=== PATIENT | male | born 1945 | race Caucasian/White ===

== ENCOUNTER → 2016-04-19 | Outpatient (REF) | payer MEDICARE, MEDICAID ==
[~2016-04-19] MED LIST: /MOM400 PO; ACET-654 PO; ACET500C PO; ACET65TA; AMOXIL PO; BISA10SU2 PR; CALCCHW12; CALCCHW12 PO; CALCIUM CARBONATE; CHOLECALCIFEROL; COLA100C PO; COLA100C2 PO; DILA100C; DILA100C PO; DULC10SU2 PR; DULC5TAB PO; FISH1000 PO; FISH100049 PO; FLEEENE4 PR; FLEX5TAB3 PO; FLON0.054; LASI40TA PO; LIPI10TA; LOVE1INJ SC; MAGO400T PO; METAMUCIL PO; METAPKT PO; MILKSUS PO; MIRA3350 PO; MULTIVIT PO; NYST100024 TOP; NYSTPOW TOP; ONDA4INJ4 IV; ONE50TAB4 PO; OXYC2.5T PO; PANT40TA2 PO; PRIM250T3 PO; PRIM250T5 PO; PRIMI25TA; PRIMI25TA PO; PROT20TA11; PROTPAK PO; SIMV20TA2 PO; THERGRAN; TYLE500T53 PO; VITA50003 PO; VITA500047 PO; VITAMIN D50000 UNT PO; ZOCOR PO
[2016-04-19 10:09] LABS: MEAN CORPUSCULAR HEMOGLOBIN 32.7 pg (27.0-33.0); MEAN CORPUSCULAR HGB CONC 33.8 g/dl (32.0-36.5); MEAN CORPUSCULAR VOLUME 96.9 fl (80.0-96.0); RED CELL DISTRIBUTION WIDTH 12.7 % (11.5-14.5)
[2016-04-19 10:38] LABS: ALBUMIN 2.9 GM/DL (3.2-5.2); ALBUMIN/GLOBULIN RATIO 0.71 (1.00-1.93); ALKALINE PHOSPHATASE 204 U/L (45-117); ALT/SGPT 21 U/L (12-78); ANION GAP 9 MEQ/L (8-16); AST/SGOT 18 U/L (15-37); BILIRUBIN,TOTAL 0.3 MG/DL (0.2-1.0); BLOOD UREA NITROGEN 15 MG/DL (7-18); CALCIUM LEVEL 8.3 MG/DL (8.8-10.2); CARBON DIOXIDE LEVEL 28 MEQ/L (21-32); CHLORIDE LEVEL 102 MEQ/L (98-107); CREATININE FOR GFR 0.71 MG/DL (0.70-1.30); GLOMERULAR FILTRATION RATE > 60.0 (>42); GLUCOSE, FASTING 115 MG/DL (83-110); POTASSIUM SERUM 4.1 MEQ/L (3.5-5.1); SODIUM LEVEL 139 MEQ/L (136-145)
== END ==
PROVIDERS: ATTEND Internal Medicine
DX: E53.8 Deficiency of other specified B group vitamins (principal); Z79.899 Other long term (current) drug therapy

== ENCOUNTER → 2016-05-24 | Outpatient (REF) | payer MEDICARE, MEDICAID ==
[2016-05-26 00:07] LABS: PHENOBARBITAL (PRIMIDONE) 22 ug/mL (15-40)
== END ==
PROVIDERS: ATTEND Internal Medicine
DX: R56.9 Unspecified convulsions (principal)

== ENCOUNTER 2016-06-11 20:59 | Inpatient (IN) | payer MEDICARE, MEDICAID ==
[~2016-06-11] VITALS: Ht 188 cm; Wt 105.7 kg
[~2016-06-11 20:59] MED LIST changes: -COLA100C PO; +COLA100C3 PO
[2016-06-11] MEDS: SIMVASTATIN 20 MG TAB PO SCH (21:00)
[2016-06-11] MEDS: LATANOPROST 0.005% OPHTH SOLN 2.5 ML OU SCH (21:00)
[2016-06-11] MEDS ORDERED: SENO8.6T2 PO (21:15)
[2016-06-11] MEDS ORDERED: LATA5OPD OU (21:15)
[2016-06-11] MEDS ORDERED: ALBU83IN INH (21:15)
[2016-06-11] MEDS ORDERED: PROA1AER INH (21:15)
[2016-06-11] MEDS ORDERED: DILA100C PO ×2 (21:15)
[2016-06-11] MEDS ORDERED: COLA100C3 PO (21:15)
[2016-06-11] MEDS ORDERED: MULTLIQ PO (21:27)
[2016-06-11] MEDS ORDERED: PAZE1DRO OU (21:27)
[2016-06-11] MEDS ORDERED: VOLT1GEL24 TD (21:27)
[2016-06-11] MEDS ORDERED: DRIS50002 PO (21:27)
[2016-06-11] MEDS ORDERED: PRIM250T5 PO (21:27)
[2016-06-11] MEDS ORDERED: CYAN1000VL PO (21:27)
[2016-06-11] MEDS ORDERED: ACET160L7 PO (21:27)
[2016-06-11] MEDS ORDERED: MORPHINE 4 MG/ML 1ML SYRINGE IV PRN (21:45)
[2016-06-11] MEDS ORDERED: ONDANSETRON 4MG/2ML VIAL (J2405) IV ONE (21:45)
[2016-06-11 21:50] LABS: MEAN CORPUSCULAR HGB CONC 34.3 g/dl (32.0-36.5); MEAN CORPUSCULAR VOLUME 99.2 fl (80.0-96.0); PLATELET COUNT, AUTOMATED 262 k/mm3 (150-450); RED CELL DISTRIBUTION WIDTH 12.9 % (11.5-14.5); WHITE BLOOD COUNT 14.2 K/mm3 (4.0-10.0)
[2016-06-11 22:10] LABS: BANDS 4 % (< 11)
[2016-06-11 22:13] LABS: ALBUMIN 3.4 GM/DL (3.2-5.2); ALBUMIN/GLOBULIN RATIO 0.77 (1.00-1.93); ALKALINE PHOSPHATASE 216 U/L (45-117); ALT/SGPT 33 U/L (12-78); ANION GAP 10 MEQ/L (8-16); AST/SGOT 30 U/L (15-37); BILIRUBIN,DIRECT 0.2 MG/DL (0.0-0.2); BILIRUBIN,TOTAL 0.4 MG/DL (0.2-1.0); BLOOD UREA NITROGEN 13 MG/DL (7-18); CALCIUM LEVEL 8.6 MG/DL (8.8-10.2); CARBON DIOXIDE LEVEL 28 MEQ/L (21-32); CHLORIDE LEVEL 100 MEQ/L (98-107); CREATININE FOR GFR 0.81 MG/DL (0.70-1.30); GLOMERULAR FILTRATION RATE > 60.0 (>42); GLUCOSE, FASTING 139 MG/DL (83-110); POTASSIUM SERUM 4.2 MEQ/L (3.5-5.1); SODIUM LEVEL 138 MEQ/L (136-145); TOTAL PROTEIN 7.8 GM/DL (6.4-8.2)
[2016-06-11] MEDS ORDERED: ISOVUE-370 76% 100ML VIAL (Q9967) As Ordered ONE (22:39)
--- NOTE | 2016-06-11 23:40 | REPUSA ---
CT of the abdomen and pelvis with contrast Clinical statement: Pain. Technique: Multiple axial CT images were obtained from the base of the lungs through the floor of the pelvis utilizing 5 mm axial slices after administration of nonionic intravenous contrast. Coronal an d sagittal reconstructions were also obtained. comparison: August 29, 2012. Findings: Chest: There is a right lower lobe infiltrate. Abdomen: The liver, spleen, pancreas, kidneys, and adrenal glands are unremarkable. There is a 2 cm s imple right renal cyst. The aorta is within normal limits. There is no evidence of abdominal lymphade nopathy or ascites. Pelvis: The bowel does not demonstrate any obstructive or inflammatory changes. However, moderate flu id distention of the small bowel is noted. The urinary bladder is within normal limits. The other pel luis a structures appear grossly intact. There is no evidence of pelvic lymphadenopathy or ascites. Bones: There are no suspicious osseous abnormalities seen. There is severe degenerative disc disease at L5/S1. Levoscoliosis is appreciated. Right hip arthroplasty is in place. Open reduction internal fixation of the proximal left femur is noted. Impression: 1. Moderate fluid distention small bowel. This is a nonspecific finding, without evidence of obstruct ion. The findings could suggest enteritis. Clinical correlation is suggested. 2.. Simple right renal cyst. 3 Scoliosis and spondylotic changes of the spine. 4. Right lower lobe infiltrate.
[2016-06-12] MEDS ORDERED: NS 1,000 ML IV ONE (01:00)
[2016-06-12] MEDS ORDERED: VITMTA PO (02:10)
[2016-06-12] MEDS ORDERED: ARTI99.0 OU (02:10)
[2016-06-12] MEDS ORDERED: BENEPOW7 PO (02:10)
[2016-06-12] MEDS ORDERED: TYLE325T5 PO ×2 (02:10)
[2016-06-12] MEDS ORDERED: ACET650S3 PR (02:10)
[2016-06-12] MEDS ORDERED: ALBUTEROL 90 MCG/ACT 8GM HFA INHALER INH PRN (02:30)
[2016-06-12] MEDS ORDERED: POLYVINYL ALCOHOL OPHTH SOLN 15 ML(LIQUITEARS) OU PRN (02:30)
[2016-06-12] MEDS ORDERED: FLEET ENEMA PR PRN (02:30)
[2016-06-12] MEDS ORDERED: ALBUTEROL SULFATE 2.5 MG/0.5 ML INH NEB SOLN INH PRN (02:30)
[2016-06-12] MEDS ORDERED: BISACODYL 10 MG SUPP PR PRN (02:30)
[2016-06-12] MEDS ORDERED: MORPHINE 2 MG/ML 1ML SYRINGE IV PRN (02:45)
[2016-06-12] MEDS ORDERED: ONDANSETRON 4MG/2ML VIAL (J2405) IV PRN (02:45)
[2016-06-12] MEDS: NS 1,000 ML IV SCH ×3 (02:45→20:16)
[2016-06-12 03:45] VITALS: BP 118/67
--- NOTE | 2016-06-12 04:54 | HPE ---
DATE OF ADMISSION: 06/12/2016 PRIMARY CARE PROVIDER: Teresa Jacinto DO. CHIEF COMPLAINT: Nausea, vomiting, diarrhea, abdominal pain. HISTORY OF PRESENT ILLNESS: This is a 71-year-old male patient with underlying medical history of dyslipidemia, seizure disorder, cerebral palsy with right arm contracture, deep venous thrombosis (DVT), epilepsy, hypertension, small bowel obstruction, with multiple abdominal surgeries. Since yesterday morning, patient developed persistent diarrhea, more than 10 times, watery, with nausea, vomiting, nonbloody, nonbilious, not tolerating much oral. Baseline, patient is wheelchair bound. Lives at [facility], [facility] Patient also reported worsening belly pain with abdominal distention. Subsequently, was brought to the emergency room. Last episode of vomiting was observed by emergency medical services (EMS), but in the emergency room was given some morphine. CT scan was done. Patient denies any chest pain, pressure or discomfort. Denies any urinary change. Denies any headache, hearing change. Denies any fevers, chills. After given some morphine, reported abdominal pain better. Subsequently has not had further vomiting. Dr. Mike was consulted and the emergency room does not believe the patient's symptom is associated with small bowel obstruction. Dr. Mike believes it might be a kind of infectious or inflammatory process such as gastroenteritis. Patient denies any sick contact, but does reside at a nursing facility. ALLERGIES: No known drug allergies. PAST MEDICAL HISTORY: 1. Epilepsy. 2. Dyslipidemia. 3. Hypertension. 4. History of DVT. 5. Cerebral palsy with right arm contracture. 6. Small bowel obstruction in the past. 7. Osteoporosis. PAST SURGICAL HISTORY: 1. Exploratory laparotomy for small bowel obstruction 1995. 2. Laparoscopic cholecystectomy year 1999. 3. Bilateral cataract extraction year 1999. 4. Left hip fracture repair in April 1997. 5. Right hip fracture repair August. 6. Small bowel obstruction also 2006. SOCIAL HISTORY: Patient lives at snf facility. 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 Remote history of smoking, used to smoke cigars. Does not know when he quit. As per patient, many years ago. Has not drank alcoholic beverages since 1992 as per patient. FAMILY HISTORY: Mother with dementia. Otherwise, noncontributory. ALLERGIES: Denies any medication allergies. REVIEW OF SYSTEMS: 10-point review of systems negative except for those mentioned in the history of present illness (HPI). HOME MEDICATIONS: - acetaminophen 650 mg by mouth daily - ProAir inhalation four times a day - artificial tears as needed - Dulcolax 10 mg per rectum every 12 hours as needed - cyanocobalamin 2000 mcg by mouth twice a day - Colace 200 mg by mouth twice a day - Lasix 40 mg by mouth daily - latanoprost eye drops daily - milk of magnesia 30 mL by mouth twice a day as needed - multivitamin one tablet by mouth daily - Dilantin 100 mg by mouth three times a day, 200 mg by mouth nightly - MiraLAX 17 grams by mouth daily - primidone 125 mg by mouth three times a day - Senokot one tablet by mouth nightly - Zocor 20 mg by mouth nightly - Fleet enema as needed - vitamin D every Sunday 50,000 units by mouth - voltaren 1% gel topically three times a day as needed PHYSICAL EXAMINATION: VITAL SIGNS: Temperature 98, pulse 69, respirations 18, blood pressure 95/51, pulse oximetry 91% on 2 liters nasal cannula. GENERAL: Patient alert and oriented times three in no acute distress, comfortable. HEENT: Normocephalic, atraumatic. PULMONARY: Bilaterally clear, distant breath sounds bilateral base. CARDIAC: Regular rate and rhythm. Normal S1, S2. ABDOMEN: No significant tenderness, soft, obese. Hyperactive bowel sounds. No rebound. No guarding. EXTREMITIES: No edema bilateral lower extremities. Right upper extremity contracted. LABORATORY: WBC 14.2, hemoglobin and hematocrit 16.6/43.3, platelets 263. Chemistry: Sodium 138, potassium 4.2, chloride 100, bicarbonate 28, BUN 13, creatinine 0.8. Lactic acid initial 3.1, repeat 2. Cardiac enzymes negative times one. Lipase negative. CT scan of the abdomen suggestive of moderate fluid distention or small bowel, nonspecific finding, without evidence of obstruction. Findings suggestive of enteritis. ASSESSMENT AND PLAN: This is a 71-year-old male patient with underlying medical history of epilepsy, dyslipidemia, hypertension, history of deep venous thrombosis (DVT), cerebral palsy with right arm contracture, and small bowel obstruction, admitted with nausea, vomiting, abdominal pain, diarrhea. 1. Nausea, vomiting, abdominal pain, and diarrhea. Surgery, Dr. Mike has been consulted given history of small bowel obstruction. As per Dr. Mike, unlikely to be small bowel obstruction. Likely acute gastroenteritis. Will followup gastrointestinal (GI) panel. Intravenous (IV) fluids. Nothing by mouth. Advance diet as tolerated. Levaquin and Flagyl for now. Repeat lactic acid. Bacid. Will continue to follow. 2. Epilepsy. Continue home medication. Seizure precautions. 3. Hypertension. Patient currently normal to borderline blood pressure. Will continue to monitor. No need to place the patient on any blood pressure medication. 4. Dyslipidemia. Continue statin. 5. History of cerebral palsy. Supportive care. Continue current medication. 6. Constipation. Continue to monitor. Patient currently is having diarrhea. CT scan is appreciated. 7. History of DVT. DVT prophylaxis has been given with heparin subcutaneously. Will monitor closely. 8. Leukocytosis. Likely secondary to gastroenteritis. Continue antibiotics as above. Followup cultures. 9. DVT prophylaxis. Heparin subcutaneously. DISPOSITION PLANNING: Pending GI panel, further workup, clinical improvement. General surgery, Dr. Mike has been consulted.
[2016-06-12] MEDS: LevoFLOXacin IV 500 MG in APPROPRIATE DILUENT 1 EA IV SCH (05:05)
[2016-06-12 06:00] VITALS: BP 106/56
[2016-06-12] MEDS: HEPARIN SOD (PORCINE) 5000 UNITS/ML VIAL SC SCH ×3 (06:20→21:07)
[2016-06-12] MEDS: metroNIDAZOLE 500 MG in APPROPRIATE DILUENT 1 EA IV SCH ×3 (06:20→21:02)
[2016-06-12 06:38] LABS: MEAN CORPUSCULAR HEMOGLOBIN 34.2 pg (27.0-33.0); MEAN CORPUSCULAR HGB CONC 34.7 g/dl (32.0-36.5); MEAN CORPUSCULAR VOLUME 98.7 fl (80.0-96.0); RED CELL DISTRIBUTION WIDTH 13.1 % (11.5-14.5); WHITE BLOOD COUNT 9.8 K/mm3 (4.0-10.0)
[2016-06-12 06:57] LABS: ANION GAP 8 MEQ/L (8-16); BLOOD UREA NITROGEN 13 MG/DL (7-18); CARBON DIOXIDE LEVEL 27 MEQ/L (21-32); CHLORIDE LEVEL 105 MEQ/L (98-107); GLOMERULAR FILTRATION RATE > 60.0 (>42); GLUCOSE, FASTING 128 MG/DL (83-110); MAGNESIUM LEVEL 2.1 MG/DL (1.8-2.4); POTASSIUM SERUM 4.3 MEQ/L (3.5-5.1); SODIUM LEVEL 140 MEQ/L (136-145)
[2016-06-12] MEDS: LACTOBACILLUS ACIDOPHILUS CAP (BACID) PO SCH ×3 (07:33→21:04)
[2016-06-12] MEDS: PRIMIDONE 250 MG TAB PO SCH ×3 (07:34→21:04)
[2016-06-12] MEDS: MULTIVITAMINS/MINERALS THERAP 1 TAB PO SCH (07:34)
[2016-06-12] MEDS: PHENYTOIN ER 100 MG CAP PO SCH ×4 (07:35→21:04)
[2016-06-12] MEDS ORDERED: DOCUSATE SODIUM 100 MG CAP PO SCH (09:00)
[2016-06-12 14:00] VITALS: BP 123/61
--- NOTE | 2016-06-12 14:48 | IPN ---
DATE: 06/12/2016 SUBJECTIVE: This is a 71-year-old male who is seen and examined at bedside. Overnight, he was admitted for nausea, vomiting, diarrhea and abdominal pain. He was evaluated by surgery and, at this time, it is believed that he does not have small bowel obstruction but his symptoms most likely secondary to acute gastroenteritis. Since admission, he denies any further episodes of nausea, vomiting, or diarrhea. He is anxious to eat. He is a resident of [facility] and unclear if other residents had similar symptoms. REVIEW OF SYSTEMS: Denies any chest pain, shortness of breath, palpitations, fevers, chills, night sweats, problems with urination. OBJECTIVE: VITAL SIGNS: Blood pressure 106/56, heart rate 66, temperature 98, respiratory rate 20, pulse oximetry 94% on room air. Intake is documented at 1120, output is not documented. Weight is 109 kg. GENERAL: The patient is lying bed, comfortable, in no acute distress. He is awake, alert and oriented times three, pleasant and cooperative. Brother at bedside. HEENT: Normocephalic, atraumatic. Moist oral mucosa. Edentulous. Eyes: Extraocular movement intact. Pupils are equal and reactive to light. NECK: Supple. Trachea midline. HEART: Regular rate and rhythm with normal S1, S2. LUNGS: Breath sounds were diminished but clear bilaterally. ABDOMEN: Obese, protuberant, but nontender, nondistended. Bowel sounds present but distant. No guarding. No rebound. No peritoneal sign. EXTREMITIES: No pedal edema. Pedal pulses present bilaterally. Right upper extremity is contracted which reportedly is chronic secondary to history of cerebral palsy. NEUROLOGIC: Sensory intact. Strength 5/5 in all extremities with the exception of his right upper extremity. SKIN: No obvious rashes or lesions. PSYCHIATRIC: Normal affect. LABORATORY DATA: WBC 9.8, hemoglobin 13.4, hematocrit 38.6, platelets 234. Sodium 140, potassium 4.3, chloride 105, carbon dioxide 27, BUN 13, creatinine 0.7, glucose 128, magnesium 2.1, calcium 8, CK 28. Cardiac markers negative. CRP 7.28. Blood cultures pending. CT abdomen and pelvis on admission reports moderate fluid distention, small bowel without evidence of obstruction, findings could suggest enteritis, simple right renal cyst, scoliosis and spondylotic changes at the spine. Chest x-ray portable view showed cardiomegaly, cannot exclude mild interstitial edema. IMPRESSION AND PLAN: Mr. eKnny is a 71-year-old male with a history of epilepsy, small bowel obstruction who presented with nausea, vomiting, and diarrhea. 1. Acute gastroenteritis. He has already been evaluated by surgery and, at this time, it is believed that he does not have small bowel obstruction. He is currently on IV fluid hydration. We will advance patient's diet to clears and advance diet later as tolerated. Once he is able to by mouth intake, we will consider decreasing his IV fluid hydration. Was started on Levaquin and Flagyl for possible bacterial colitis. Repeat lactic acid level is normal. Gastrointestinal (GI) panel is ordered. However, since the patient has remained without further episodes of diarrhea, this has not been sent. 2. Hypotension. He had an episode of hypotension overnight and reportedly was asymptomatic. Continue IV fluid hydration for now until he is able to tolerate an oral diet. His medication list shows the patient was on Lasix 40 mg daily at home. We will continue holding his home hypertensive agents. 3. Leukocytosis. Likely secondary to acute gastroenteritis. Leukocytosis has since resolved. 4. Hyperlipidemia. Continue home dose Zocor at bedtime. 5. History of epilepsy. Continue dilantin 200 mg at bedtime and 100 mg three times a day. 6. Vitamin D deficiency. Continue vitamin D supplementation. 7. Cerebral palsy. The patient has right upper extremity contracture which has been present since . 8. History of deep vein thrombosis (DVT). Continue DVT prophylaxis with heparin. My preceptor for this patient encounter was Dr. Vigil. The preceptor was physically present in the building during the encounter and was fully available as needed. All aspects of the patient interview, examination, medical decision making process, and medical care plan development were reviewed and approved by the preceptor. The preceptor is aware and concurs with the plan as stated in the body of this note and will attest to such by his/her co-signature. QUOC
[2016-06-12 21:00] VITALS: O2SAT 94
[2016-06-12] MEDS: LATANOPROST 0.005% OPHTH SOLN 2.5 ML OU SCH (21:00)
[2016-06-12] MEDS: SIMVASTATIN 20 MG TAB PO SCH (21:06)
[2016-06-12 22:00] VITALS: BP 144/64
[2016-06-12 23:23] VITALS: O2SAT 93
--- NOTE | 2016-06-13 04:49 | ECGEPIP ---
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
[2016-06-13] MEDS: LevoFLOXacin IV 500 MG in APPROPRIATE DILUENT 1 EA IV SCH (04:52)
[2016-06-13 06:00] VITALS: BP 108/59
[2016-06-13] MEDS: HEPARIN SOD (PORCINE) 5000 UNITS/ML VIAL SC SCH ×3 (06:02→22:16)
[2016-06-13] MEDS: metroNIDAZOLE 500 MG in APPROPRIATE DILUENT 1 EA IV SCH (06:02)
[2016-06-13 06:44] LABS: MEAN CORPUSCULAR HEMOGLOBIN 32.7 pg (27.0-33.0); MEAN CORPUSCULAR HGB CONC 33.1 g/dl (32.0-36.5); RED CELL DISTRIBUTION WIDTH 12.7 % (11.5-14.5); WHITE BLOOD COUNT 7.2 K/mm3 (4.0-10.0)
[2016-06-13 07:01] LABS: ANION GAP 5 MEQ/L (8-16); BLOOD UREA NITROGEN 11 MG/DL (7-18); CARBON DIOXIDE LEVEL 28 MEQ/L (21-32); CHLORIDE LEVEL 108 MEQ/L (98-107); CREATININE FOR GFR 0.66 MG/DL (0.70-1.30); GLOMERULAR FILTRATION RATE > 60.0 (>42); GLUCOSE, FASTING 94 MG/DL (83-110); MAGNESIUM LEVEL 2.1 MG/DL (1.8-2.4); POTASSIUM SERUM 3.9 MEQ/L (3.5-5.1); SODIUM LEVEL 141 MEQ/L (136-145)
--- NOTE | 2016-06-13 08:02 | REP ---
Clinical: Shortness of breath. Comparison: 12/05/2015. Findings: Interstitial edema along with perihilar atelectasis cannot be excluded. Linear fibroatelectatic changes in the right mid lung zone identified. No definite effusion. No pneumothorax. Mediastinum and cardiac silhouette stable. Impression: Cannot exclude mild interstitial edema along with perihilar atelectasis. Signed by Piter Lira MD 06/13/2016 07:54 A
[2016-06-13] MEDS: LACTOBACILLUS ACIDOPHILUS CAP (BACID) PO SCH ×3 (08:53→20:10)
[2016-06-13] MEDS: PHENYTOIN ER 100 MG CAP PO SCH ×4 (08:53→20:11)
[2016-06-13] MEDS: PIPERACILLIN/TAZOBACTAM SOD 3.375 GM in D5W MINI-BAG PLUS 50 ML IV SCH ×3 (08:53→23:03)
[2016-06-13] MEDS: MULTIVITAMINS/MINERALS THERAP 1 TAB PO SCH (08:54)
[2016-06-13] MEDS: PRIMIDONE 250 MG TAB PO SCH ×3 (08:54→20:11)
[2016-06-13] MEDS: DOCUSATE SODIUM 100 MG CAP PO SCH ×2 (13:11→20:10)
[2016-06-13 14:00] VITALS: BP 136/65
[2016-06-13] MEDS: NYSTATIN 100,000 UNITS/GM TOPICAL PWD 15 GM TOP SCH ×2 (14:34→20:12)
--- NOTE | 2016-06-13 14:37 | REP ---
KUB: Four views presented. History: Abdominal pain. Question ileus. Comparison study December 06, 2015. Comparison is also made with recent CT study of the abdomen from June 11, 2016. Findings: There are multiple loops of moderately dilated mid and distal small bowel. Gaseous distension of the cecum is again seen with a transverse diameter of 14.7 cm today. This is similar to the prior KUB from November of 2015. There is moderate gas and stool in the distal colon. No evidence of obstruction. Right femoral head replacement and left femoral pinning are seen. There is a levoconvex curve in the lumbar spine. Impression: Ileus pattern versus pseudo-obstruction. No mass lesion seen. There are clips in the right upper quadrant. Signed by Dedrick Herrera MD 06/13/2016 03:42 P
--- NOTE | 2016-06-13 15:07 | IPN ---
DATE: 06/13/2016 SUBJECTIVE: This is a 71-year-old male who was seen and examined at bedside. Last night the patient was doing well but during sleep he became hypoxic with pulse oximetry as low as 84 and was placed on 3 liters nasal cannula, which improved his oxygen saturation. His diet was slowly advanced to full liquid diet; however, this morning he states that after a couple of spoonfuls he felt uncomfortable though denies nausea, vomiting, diarrhea, abdominal pain. He is unable to describe exactly how he feels, but he does not have a good appetite. No fevers, chills, night sweats, headaches, chest pain, shortness of breath, palpitations. He did report dysuria with urination and had multiple voids, though it is not documented exactly how much fluid for output. The patient himself is unaware of any history of obstructive sleep apnea. OBJECTIVE: VITAL SIGNS: Blood pressure 108/59, heart rate 61, temperature 99.2, respiration rate 20, pulse oximetry 97% on 3 liters nasal cannula. Intake and output in the last 24 hours is 2240 and no output documented, but had five episodes of incontinent voids. No diarrhea since his admission. GENERAL: The patient is sitting in bed comfortable. No acute distress. He is alert, awake and oriented times three. Pleasant, cooperative. HEENT: Normocephalic, atraumatic. Moist oral mucosa. Edentulous. EYES: Extraocular movements intact. Pupils are equal and reactive to light. Neck is supple. Trachea is midline. No jugular venous distention (JVD). HEART: Regular rate and rhythm. Normal S1, S2. LUNGS: Breath sounds diminished with occasional crackles at the lung base. ABDOMEN: Nontender, nondistended. Bowel sounds are hypoactive. No guarding. No rebound. No peritoneal signs. EXTREMITIES: Very trace pedal edema. Pedal pulses are present bilaterally. He does have chronic contracture of his right upper extremity. NEUROLOGIC: Sensory intact. His right upper extremity is contracted, as mentioned above. PSYCHIATRIC: Pleasant and cooperative. LABORATORY DATA: WBC 7.2, hemoglobin 12, hematocrit 36.3, platelets 218. Sodium 121, potassium 3.9, chloride 108, carbon dioxide 28, BUN 11, creatinine 0.66, glucose 94, calcium 8, magnesium 2, CRP 14.4. Blood cultures negative after 24 hours. IMPRESSION/PLAN: Mr. Kenny is a 71-year-old male who presented with abdominal pain, nausea, vomiting, diarrhea. 1. Acute gastroenteritis. Was evaluated by surgery and was not believed to be secondary to small bowel obstruction. He was initially treated for possible bacterial colitis on admission with Flagyl and Levaquin due to elevated WBC 14.2 with bandemia and lactic acidosis. We have since changed to Zosyn and have advanced his diet. Currently he is on full liquid diet, but the patient does not appear to be tolerating full liquids, therefore, recommend the patient be back on clears. His abdomen is felt to be less distended today compared to yesterday; however, it is hypoactive. We have ordered a KUB to rule out ileus. 2. Hypotension, resolved. Because his blood pressure is improving, we will discontinue his IV fluid. He takes Lasix 40 mg by mouth daily at home. We will continue to monitor for now. 3. Hyperlipidemia. Continue home dose of Zocor at night. 4. History of epilepsy. Continue Dilantin 200 mg at night and 100 mg three times a day. 5. Pneumonia. CT of the chest showed right lower lobe infiltrate. The patient was changed to Zosyn this morning for possible pneumonia and urinary tract infection. He has a history of Proteus in his urine in the past. 6. Vitamin D deficiency. Continue vitamin D supplementation. 7. History of cerebral palsy. He has chronic right upper extremity contracture. 8. History of deep vein thrombosis (DVT). Continue DVT prophylaxis with heparin. My preceptor for this patient encounter was Dr. Tavares. The preceptor was physically present in the building during the encounter and was fully available. As needed, all aspects of the patient interview, examination, medical decision making process, and medical care plan development were reviewed and approved by the preceptor. The preceptor is aware and concurs with the plan as stated in the body of this note and will attest to such by his/her cosignature. QUOC
[2016-06-13] MEDS ORDERED: FLEET ENEMA PR ONE (18:45)
[2016-06-13] MEDS: SIMVASTATIN 20 MG TAB PO SCH (20:10)
[2016-06-13] MEDS: SENOKOT S TAB PO SCH (20:10)
[2016-06-13] MEDS: LATANOPROST 0.005% OPHTH SOLN 2.5 ML OU SCH (20:11)
[2016-06-13 22:00] VITALS: BP 122/59
[2016-06-14 06:00] VITALS: BP 124/65
[2016-06-14] MEDS: HEPARIN SOD (PORCINE) 5000 UNITS/ML VIAL SC SCH ×3 (06:04→20:31)
[2016-06-14 07:35] LABS: MEAN CORPUSCULAR HEMOGLOBIN 33.1 pg (27.0-33.0); MEAN CORPUSCULAR HGB CONC 34.1 g/dl (32.0-36.5); MEAN CORPUSCULAR VOLUME 97.2 fl (80.0-96.0); RED CELL DISTRIBUTION WIDTH 12.7 % (11.5-14.5); WHITE BLOOD COUNT 7.8 K/mm3 (4.0-10.0)
[2016-06-14 07:52] LABS: ANION GAP 5 MEQ/L (8-16); BLOOD UREA NITROGEN 7 MG/DL (7-18); CALCIUM LEVEL 8.2 MG/DL (8.8-10.2); CARBON DIOXIDE LEVEL 26 MEQ/L (21-32); CHLORIDE LEVEL 109 MEQ/L (98-107); CREATININE FOR GFR 0.62 MG/DL (0.70-1.30); GLOMERULAR FILTRATION RATE > 60.0 (>42); GLUCOSE, FASTING 88 MG/DL (83-110); MAGNESIUM LEVEL 2.1 MG/DL (1.8-2.4); POTASSIUM SERUM 3.9 MEQ/L (3.5-5.1); SODIUM LEVEL 140 MEQ/L (136-145)
[2016-06-14] MEDS: PHENYTOIN ER 100 MG CAP PO SCH ×4 (08:32→20:30)
[2016-06-14] MEDS: PIPERACILLIN/TAZOBACTAM SOD 3.375 GM in D5W MINI-BAG PLUS 50 ML IV SCH ×2 (08:32→16:00)
[2016-06-14] MEDS: NYSTATIN 100,000 UNITS/GM TOPICAL PWD 15 GM TOP SCH ×2 (08:33→20:31)
[2016-06-14] MEDS: MULTIVITAMINS/MINERALS THERAP 1 TAB PO SCH (08:33)
[2016-06-14] MEDS: LACTOBACILLUS ACIDOPHILUS CAP (BACID) PO SCH ×3 (08:33→20:30)
[2016-06-14] MEDS: PRIMIDONE 250 MG TAB PO SCH ×3 (08:34→20:30)
[2016-06-14] MEDS: DOCUSATE SODIUM 100 MG CAP PO SCH ×2 (08:34→20:31)
[2016-06-14] MEDS ORDERED: E-Z-HD 98% w/w 340GM SUSP BTL As Ordered ONE (11:32)
[2016-06-14] MEDS ORDERED: E-Z-GAS II EFFERVESCENT PACKET (SODIUM BICARB./CITRIC ACID/SIMETHICONE) As Ordered ONE (11:32)
[2016-06-14] MEDS ORDERED: E-Z PAQUE 60% w/v SUSP 355ML BOTTLE As Ordered ONE (11:33)
--- NOTE | 2016-06-14 13:38 | REP ---
UPPER GI SERIES: Single contrast study. HISTORY: Obstruction. Comparison CT study June 11, 2016. Fluoroscopy time is 36 seconds. FINDINGS: Thoracic esophagus is normal in course and caliber. Mild gastroesophageal reflux is observed. No hiatal hernia stricture or ulceration is seen. The stomach shows normal rugal folds. No mass or ulcer is seen. Pylorus is smooth. Duodenal bulb was fully distensible. C-loop is not widened. There is a medially directed descending duodenal diverticulum. The visualized proximal small bowel loops are unremarkable. IMPRESSION: Mild gastroesophageal reflux. Descending duodenal diverticulum. Otherwise unremarkable upper GI series. Signed by Dedrick Herrera MD 06/14/2016 01:40 P
[2016-06-14 14:00] VITALS: BP 121/58
--- NOTE | 2016-06-14 16:35 | IPN ---
DATE: 06/14/2016 SUBJECTIVE: This is a 71-year-old male who was seen and examined at bedside. Overnight, had KUB that showed suspicion ileus versus pseudoobstruction. This morning had diarrhea, one episode, says that he was passing a lot of gas. Feels very hungry. Denies any chest pain, shortness of breath, nausea, vomiting, fevers, chills. OBJECTIVE: VITAL SIGNS: Blood pressure 124/65, heart rate 62, temperature 99, respiration rate 18, pulse oximetry 92% on room air. INTAKE AND OUTPUT IN THE LAST 24 HOURS: 960, no output documented. Weight is 110 kg. GENERAL: The patient is lying in bed, comfortable. He is alert, awake and oriented times three. Pleasant, cooperative. HEENT: Normocephalic, atraumatic. Moist oral mucosa. Extraocular movements intact. Pupils are equal and reactive to light. Neck is supple. Trachea is midline. No jugular venous distention (JVD). CHEST: Symmetric chest rise. No accessory muscle use. Breath sounds were diminished with occasional crackles. HEART: Regular rate and rhythm with normal S1, S2. Could not appreciate murmurs, rubs or gallops. ABDOMEN: Soft, nondistended. Bowel sounds are still hypoactive. No guarding. No rebound. No peritoneal signs. EXTREMITIES: Trace pedal edema. Pedal pulses present bilaterally. Persistent chronic contracture of his right upper extremity. PSYCHIATRIC: Pleasant. Normal affect. LABORATORY DATA: WBC 7.8, hemoglobin 12.4, hematocrit 36.3, platelets 219. Sodium 140, potassium 3.9, chloride 109, carbon dioxide 26, BUN 17, creatinine 0.62, glucose 88, calcium 8.2, magnesium 2.1, CRP 8.4; improved from yesterday 14.4. Urine culture is negative. IMPRESSION/PLAN: Mr. Kenny is a pleasant 71-year-old male who presented with abdominal pain, nausea, vomiting, diarrhea. 1. Abdominal pain. KUB showed questionable ileus versus pseudoobstruction. We have ordered further studies to evaluate for obstruction. Will follow up with result. The patient in the meantime is nothing by mouth. 2. . Hypotension, resolved. We have discontinued his IV fluids yesterday. Takes Lasix at home 40 mg daily. Blood pressure is reasonable despite not on any medication at this time. Continue to monitor fluid status. 3. Hyperlipidemia. Continue Zocor at bedtime. 4. History of epilepsy. Continue Dilantin home dose. 5. Pneumonia. Continue Zosyn that was started yesterday. 6. Vitamin D deficiency. Continue vitamin D supplementation. 7. Deep vein thrombosis prophylaxis. Continue heparin 5000 units every 8 hours. My preceptor for this patient encounter was Dr. Tavares. The preceptor was physically present in the building during the encounter and was fully available as needed. All aspects of the patient interview, examination, medical decision making process, and medical care plan development were reviewed and approved by the preceptor. The preceptor is aware and concurs with the plan as stated in the body of this note and will attest to such by his/her co-signature. QUOC
[2016-06-14] MEDS: ACETAMINOPHEN TAB 650MG DOSE (2X325MG) PO PRN (17:51)
[2016-06-14] MEDS: SIMVASTATIN 20 MG TAB PO SCH (20:30)
[2016-06-14] MEDS: SENOKOT S TAB PO SCH (20:30)
[2016-06-14] MEDS: LATANOPROST 0.005% OPHTH SOLN 2.5 ML OU SCH (20:31)
[2016-06-14 21:00] VITALS: O2SAT 94
[2016-06-14 22:00] VITALS: BP 131/70
[2016-06-15] MEDS: PIPERACILLIN/TAZOBACTAM SOD 3.375 GM in D5W MINI-BAG PLUS 50 ML IV SCH ×4 (00:56→23:19)
[2016-06-15 06:00] VITALS: BP 141/67
[2016-06-15] MEDS: HEPARIN SOD (PORCINE) 5000 UNITS/ML VIAL SC SCH ×3 (06:05→21:15)
[2016-06-15 06:55] LABS: MEAN CORPUSCULAR HEMOGLOBIN 33.4 pg (27.0-33.0); MEAN CORPUSCULAR HGB CONC 33.7 g/dl (32.0-36.5); RED CELL DISTRIBUTION WIDTH 12.7 % (11.5-14.5); WHITE BLOOD COUNT 7.2 K/mm3 (4.0-10.0)
[2016-06-15 07:18] LABS: ANION GAP 7 MEQ/L (8-16); BLOOD UREA NITROGEN 6 MG/DL (7-18); CARBON DIOXIDE LEVEL 23 MEQ/L (21-32); CHLORIDE LEVEL 109 MEQ/L (98-107); CREATININE FOR GFR 0.57 MG/DL (0.70-1.30); GLOMERULAR FILTRATION RATE > 60.0 (>42); GLUCOSE, FASTING 87 MG/DL (83-110); POTASSIUM SERUM 3.7 MEQ/L (3.5-5.1); SODIUM LEVEL 139 MEQ/L (136-145)
[2016-06-15] MEDS: MULTIVITAMINS/MINERALS THERAP 1 TAB PO SCH (08:55)
[2016-06-15] MEDS: LACTOBACILLUS ACIDOPHILUS CAP (BACID) PO SCH ×3 (08:55→21:11)
[2016-06-15] MEDS: PRIMIDONE 250 MG TAB PO SCH ×3 (08:55→21:11)
[2016-06-15] MEDS: PHENYTOIN ER 100 MG CAP PO SCH ×4 (08:55→21:13)
[2016-06-15] MEDS: DOCUSATE SODIUM 100 MG CAP PO SCH ×2 (08:55→21:00)
[2016-06-15] MEDS: NYSTATIN 100,000 UNITS/GM TOPICAL PWD 15 GM TOP SCH ×2 (08:56→21:17)
[2016-06-15] MEDS: ACETAMINOPHEN TAB 650MG DOSE (2X325MG) PO PRN (13:06)
[2016-06-15 14:00] VITALS: BP 117/57
--- NOTE | 2016-06-15 18:42 | IPN ---
DATE: 06/15/2016 SUBJECTIVE: This is a 71-year-old male who is seen and examined at bedside. Overnight, no acute events. His diet was resumed after a negative gastrointestinal (GI) series. He tolerated breakfast this morning. He was eating cream of wheat and was able to keep that down without nausea, vomiting, or abdominal pain. Had three or four episodes of loose bowel movements overnight. No chest pain, shortness of breath, palpitations, fevers, or chills. OBJECTIVE: VITAL SIGNS: Blood pressure 141/67, heart rate 55, temperature 98, respiration rate 18, pulse oximetry 92% on room air. INTAKE AND OUTPUT IN THE LAST 24 HOURS: 570, output is not documented, though there are four bowel movements documented along with four voids. GENERAL: The patient is sitting in bed, comfortable, in no acute distress. He is alert, awake and oriented times three, pleasant, cooperative and talkative. HEENT: Normocephalic, atraumatic. Moist oral mucosa. Eyes: Extraocular movement intact. NECK: Supple. Trachea is midline. Neck is large, difficult to appreciate jugular venous distention (JVD) secondary to large neck size. CHEST: Symmetric chest rise. No accessory muscle use. Breath sounds were diminished bilateral lung bases with occasional crackles. HEART: Regular rate and rhythm with normal S1, S2 though distant. Did not appreciate murmurs, rubs or gallops. ABDOMEN: Obese but soft, nontender, nondistended. Bowel sounds are distant. No guarding. No rebound. No peritoneal signs. EXTREMITIES: No pedal edema. Pedal pulses present bilaterally. PSYCHIATRIC: Pleasant, cooperative, normal affect. NEUROLOGIC: Alert, awake and oriented times three. 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 LABORATORY DATA: WBC 7.2, hemoglobin 13.5, hematocrit 40, platelets 247. Sodium 139, potassium 3.7 glucose 87, calcium 8, magnesium 2, CRP 6.32, improved from yesterday. Upper GI series with KUB showed mild gastroesophageal reflux, descending duodenal diverticulum, otherwise unremarkable upper GI series. IMPRESSION AND PLAN: Mr. Kenny is a pleasant 71-year-old male who is a resident of [facility] sent in initially for abdominal pain, nausea, and vomiting. 1. Acute gastroenteritis. Symptoms have slowly improved. He is tolerating his diet. Initially, there was concern for ileus; however, further testing was negative 2. Hyperlipidemia. Continue Zocor. 3. Hypotension, resolved. He previously was placed on IV hydration which has since been discontinued. Blood pressure is actually reasonable. Will hold antihypertensive agents at this time. 4. History of epilepsy. Continue Dilantin dose. 5. Pneumonia. He is on Zosyn, currently on day three of antibiotics. 6. Vitamin D deficiency. Continue vitamin D supplementation. 7. Deep vein thrombosis (DVT) prophylaxis. Sequential compression device (SCD), thromboembolic-deterrent stockings (TEDS), and heparin. DISPOSITION: If he continues to do well, we hope to have discharge planning back to [facility] tomorrow. My preceptor for this patient encounter was Dr. Tavares. The preceptor was physically present in the building during the encounter and was fully available as needed. All aspects of the patient interview, examination, medical decision making process, and medical care plan development were reviewed and approved by the preceptor. The preceptor is aware and concurs with the plan as stated in the body of this note and will attest to such by his/her co-signature. QUOC
[2016-06-15] MEDS: SENOKOT S TAB PO SCH (21:00)
[2016-06-15] MEDS: SIMVASTATIN 20 MG TAB PO SCH (21:11)
[2016-06-15] MEDS: LATANOPROST 0.005% OPHTH SOLN 2.5 ML OU SCH (21:17)
[2016-06-15 22:00] VITALS: BP 139/72
[2016-06-16 06:00] VITALS: BP 148/67
[2016-06-16 06:25] LABS: MEAN CORPUSCULAR HEMOGLOBIN 32.9 pg (27.0-33.0); MEAN CORPUSCULAR VOLUME 96.7 fl (80.0-96.0); RED CELL DISTRIBUTION WIDTH 12.9 % (11.5-14.5); WHITE BLOOD COUNT 7.9 K/mm3 (4.0-10.0)
[2016-06-16] MEDS: HEPARIN SOD (PORCINE) 5000 UNITS/ML VIAL SC SCH (06:33)
[2016-06-16 06:54] LABS: ANION GAP 7 MEQ/L (8-16); BLOOD UREA NITROGEN 7 MG/DL (7-18); CALCIUM LEVEL 7.9 MG/DL (8.8-10.2); CARBON DIOXIDE LEVEL 25 MEQ/L (21-32); CHLORIDE LEVEL 109 MEQ/L (98-107); CREATININE FOR GFR 0.52 MG/DL (0.70-1.30); GLOMERULAR FILTRATION RATE > 60.0 (>42); GLUCOSE, FASTING 93 MG/DL (83-110); MAGNESIUM LEVEL 1.9 MG/DL (1.8-2.4); POTASSIUM SERUM 3.9 MEQ/L (3.5-5.1); SODIUM LEVEL 141 MEQ/L (136-145)
[2016-06-16] MEDS ORDERED: VITAMIN D 50,000 UNITS CAPSULE (ERGOCALCIFEROL 1.25MG) PO SCH (09:00)
[2016-06-16 09:30] VITALS: BP 134/63
[2016-06-16] MEDS: LACTOBACILLUS ACIDOPHILUS CAP (BACID) PO SCH (09:41)
[2016-06-16] MEDS: PIPERACILLIN/TAZOBACTAM SOD 3.375 GM in D5W MINI-BAG PLUS 50 ML IV SCH ×2 (09:41→09:59)
[2016-06-16] MEDS: MULTIVITAMINS/MINERALS THERAP 1 TAB PO SCH (09:42)
[2016-06-16] MEDS: PHENYTOIN ER 100 MG CAP PO SCH (09:42)
[2016-06-16] MEDS: PRIMIDONE 250 MG TAB PO SCH (09:43)
[2016-06-16] MEDS: DOCUSATE SODIUM 100 MG CAP PO SCH (09:43)
[2016-06-16] MEDS: NYSTATIN 100,000 UNITS/GM TOPICAL PWD 15 GM TOP SCH (09:45)
[2016-06-16] MEDS ORDERED: AUGM875T27 PO (11:11)
[2016-06-16] MEDS ORDERED: BACITAB3 PO (11:11)
--- NOTE | 2016-06-16 18:28 | DSES ---
DATE OF ADMISSION: 06/12/2016 DATE OF DISCHARGE: 06/16/2016 PRIMARY CARE PROVIDER: Dr. Teresa Jacinto CONSULTS: Dr. Mike, General Surgery PROCEDURES: None. COMPLICATIONS: None. DIAGNOSTIC IMAGING: CT abdomen and pelvis report moderate fluid distension, small bowel nonspecific, suggest enteritis, right lower lobe infiltrate, simple renal cyst. Chest x-ray can not exclude mild interstitial edema along with perihilar atelectasis. Abdominal x-ray show ileus pattern versus pseudo obstruction. No mass or lesions appreciated. Upper gastrointestinal (GI) series show mild gastroesophageal reflux descending to under the diverticulum. Otherwise unremarkable. DISCHARGE DIAGNOSES: 1. Acute gastroenteritis. 2. Pneumonia. 3. Hypotension. 4. Hyperlipidemia. 5. Leukocytosis. SECONDARY ADMITTING DIAGNOSES: 1. History of epilepsy. 2. History of cerebral palsy. 3. Constipation. 4. History of osteoporosis. 5. Small bowel obstruction. 6. History of deep venous thrombosis (DVT) 7. Hypertension. BRIEF HOSPITAL COURSE: Mr. Kenny is a pleasant 71-year-old male with a past medical history as mentioned above who presented to the emergency department (ED ) on 06/12/2016 with complaints of nausea, vomiting, diarrhea, abdominal pain. He is a resident of [facility]. He reportedly was in his usual state of health until the day of presentation when he started having diarrhea, approximately 10 times a day, mostly watery, non-bloody bowel movement. He also reported nausea, vomiting and worsening abdominal distension. For complete history and physical, please see dictation on admission. Because of symptoms he underwent a CT abdomen and pelvis which results are mentioned above. Because of this symptoms he was admitted for further evaluation. He was evaluated by Dr. Mike and was relieved that his symptoms were not secondary to small bowel obstruction but secondary to acute gastroenteritis. He was initially made nothing by mouth and started on intravenous (IV) hydration. Gradually his symptoms improved and his diet was slowly advanced. At the time of discharge he was tolerating regular diet. He was also treated for pneumonia with Zosyn. For hypertension, Lasix was initially held because he was on fluid hydration. Because of his significant improved condition his home medication was restarted at discharge. For his epilepsy, his home medications were continued without change. For the rest of his medications, his home medications were continued. PHYSICAL EXAMINATION AT TIME OF DISCHARGE: VITAL SIGNS: Blood pressure 134/63, heart rate 58, temperature 98.5, respiration rate 22, pulse oximetry 95% on room air. Intake and output the last 24 hours: 1590 5 voids documented and 2 bowel movements documented. GENERAL: Patient was lying in bed, comfortable, no acute distress. Alert, awake and oriented times 3. Pleasant and cooperative. Brother at bedside. HEENT: Normocephalic, atraumatic. Moist oral mucosa. EYES: Extraocular movements intact. NECK: Supple. Trachea midline. No jugular venous distention (JVD). Could not appreciate JVD secondary to a large neck size. CHEST: Symmetric chest rise. No accessory muscle use. Breath sounds diminished but clear bilaterally. HEART: Regular rate and rhythm. Normal S1, S2. Could not appreciate murmurs, rubs, or gallops. Heart sounds are distant however. ABDOMEN: Obese but nontender, nondistended. Bowel sounds present but distant. No guarding, no rebound. Peritoneal signs significantly improved compared to previous visit. EXTREMITIES: No pedal edema. Pedal pulses present bilaterally. PSYCHIATRIC: Pleasant, cooperative, normal affect. NEUROLOGIC: He is alert, awake, oriented times 3. 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 LABORATORY DATA: WBC 7.9, hemoglobin 12.4, hematocrit 36.6, platelets 238. Sodium 141, potassium 3.9, chloride 109, carbon dioxide 25, BUN 7, creatinine 0.52, glucose 93, calcium 7.9, magnesium 1.9, CRP 4.69, improved compared to previous which was 14. DISPOSITION: To [facility]. CONDITION: Stable. ACTIVITY: As tolerated. Patient is normally wheelchair and bed bound. DISCHARGE MEDICATIONS: New medications: - Augmentin 675 for another 4 days - Bacid for another 4 days Home medications: - artificial tears as needed for dry eyes - Dulcolax 10 mg per rectum every 12 hours as needed - vitamin B12 2,000 mcg by mouth twice a day - Lasix 40 mg by mouth daily - latanoprost 1 drop daily - milk of magnesia 30 mL by mouth twice a day as needed - multivitamin Pazeo 0.7 OU daily - phenytoin 100 mg by mouth three times a day and 200 mg at bedtime - MiraLAX 17 grams by mouth daily - Primidone 125 mg by mouth three times a day - Senokot 1 tab by mouth at bedtime - Zocor 20 mg at bedtime - Fleet edema as needed - vitamin D 50,000 units as directed - voltaren 1% gel three times a day as needed - Benefiber by mouth daily. Stop the following home medications: - Tylenol 650 mg by mouth daily - Colace 200 mg by mouth daily Followup with Dr. Jacinto next week. INSTRUCTIONS: The patient is instructed to return to the hospital if he has worsening of recurrent symptoms or anything else concerning to the patient and staff. All of this was explained to the patient at the time of discharge and all questions were answered. TIME SPENT: 40 minutes. My preceptor for this patient encounter was Dr. Tavares. The preceptor was physically present in the building during the encounter and was fully available. As needed, all aspects of the patient interview, examination, medical decision making process, and medical care plan development were reviewed and approved by the preceptor. The preceptor is aware and concurs with the plan as stated in the body of this note and will attest to such by his/her cosignature. QUOC
== END 2016-06-16 11:50 | DRG 391 ==
LOC: EDBD 20:59 → M ED 22:25 → M ED INP 06-12 02:35 → M MS5PR 06-12 03:40
PROVIDERS: ADMIT Hospitalist; ATTEND Internal Medicine
DX: K52.9 Noninfective gastroenteritis and colitis, unspecified (principal); J18.9 Pneumonia, unspecified organism; G80.9 Cerebral palsy, unspecified; E78.5 Hyperlipidemia, unspecified; I95.9 Hypotension, unspecified; I10 Essential (primary) hypertension; K21.9 Gastro-esophageal reflux disease without esophagitis; K57.10 Diverticulosis of small intestine without perforation or abscess without bleeding; M81.0 Age-related osteoporosis without current pathological fracture; Z86.718 Personal history of other venous thrombosis and embolism; K59.00 Constipation, unspecified; G40.909 Epilepsy, unspecified, not intractable, without status epilepticus; Z90.49 Acquired absence of other specified parts of digestive tract; Z87.891 Personal history of nicotine dependence

== ENCOUNTER → 2016-06-23 | Outpatient (REF) ==
[~2016-06-23] MED LIST changes: +ACET160L7 PO; +ACET650S3 PR; +ALBU83IN INH; +ARTI99.0 OU; +AUGM875T27 PO; +BACITAB3 PO; +BENEPOW7 PO; +CYAN1000VL PO; +DRIS50002 PO; +LATA5OPD OU; +MULTLIQ PO; +PAZE1DRO OU; +PROA1AER INH; +SENO8.6T2 PO; +TYLE325T5 PO; +VITMTA PO; +VOLT1GEL24 TD
== END ==
PROVIDERS: ATTEND Internal Medicine
DX: R19.7 Diarrhea, unspecified (principal)

== ENCOUNTER → 2016-08-22 | Outpatient (REF) | payer MEDICAID, MEDICARE ==
[2016-08-22 10:35] LABS: MEAN CORPUSCULAR HEMOGLOBIN 34.2 pg (27.0-33.0); MEAN CORPUSCULAR HGB CONC 34.5 g/dl (32.0-36.5); MEAN CORPUSCULAR VOLUME 99.1 fl (80.0-96.0); RED CELL DISTRIBUTION WIDTH 13.4 % (11.5-14.5); WHITE BLOOD COUNT 7.1 K/mm3 (4.0-10.0)
[2016-08-22 11:03] LABS: ANION GAP 9 MEQ/L (8-16); BLOOD UREA NITROGEN 17 MG/DL (7-18); CALCIUM LEVEL 8.4 MG/DL (8.8-10.2); CARBON DIOXIDE LEVEL 27 MEQ/L (21-32); CHLORIDE LEVEL 106 MEQ/L (98-107); CHOLESTEROL LEVEL 156 MG/DL (<200); CREATININE FOR GFR 0.65 MG/DL (0.70-1.30); GLOMERULAR FILTRATION RATE > 60.0 (>42); GLUCOSE, FASTING 127 MG/DL (83-110); POTASSIUM SERUM 4.1 MEQ/L (3.5-5.1); SODIUM LEVEL 142 MEQ/L (136-145); TRIGLYCERIDES LEVEL 145 MG/DL (<150)
[2016-08-22 11:37] LABS: VITAMIN B12 LEVEL 975 PG/ML (247-911)
[2016-08-24 00:06] LABS: PHENOBARBITAL (PRIMIDONE) 30 ug/mL (15-40)
== END ==
PROVIDERS: ATTEND Internal Medicine
DX: R56.9 Unspecified convulsions (principal); E78.4 Other hyperlipidemia; J44.9 Chronic obstructive pulmonary disease, unspecified; D53.9 Nutritional anemia, unspecified; R60.9 Edema, unspecified; E53.8 Deficiency of other specified B group vitamins

== ENCOUNTER → 2016-09-26 | Outpatient (REF) | payer MEDICARE, MEDICAID ==
[~2016-09-26] MED LIST changes: -ACET160L7 PO; +ACET1LIQ PO; -AUGM875T27 PO; +AUGM875T28 PO; +BACITAB PO; -BACITAB3 PO; -COLA100C3 PO; +COLA100C5 PO; -NYST100024 TOP; +NYST1POW9 TOP; -PRIM250T5 PO; +PRIM250T8 PO; -PROA1AER INH; +PROAAER10 INH; -SENO8.6T2 PO; +SENO8.6T5 PO; +VITA1CAP40 PO; -VITA50003 PO; +VOLT1GEL15 TD; -VOLT1GEL24 TD
== END ==
PROVIDERS: ATTEND Internal Medicine
DX: Z12.5 Encounter for screening for malignant neoplasm of prostate (principal)
CPT/HCPCS: 36415; G0103

== ENCOUNTER → 2016-10-10 | Outpatient (REF) | payer MEDICARE, MEDICAID ==
--- NOTE | 2016-10-10 18:26 | REP ---
LEFT KNEE: AP and lateral views of the left knee are performed with two total views obtained. There is no definite fracture or dislocation. No definite joint effusion is seen. There are posterior soft tissue vascular calcifications noted. IMPRESSION: No evidence of acute fracture or dislocation on this limited two view series. Signed by Olivier Teran MD 10/11/2016 05:07 P
== END ==
PROVIDERS: ATTEND Internal Medicine
DX: M25.562 Pain in left knee (principal)

== ENCOUNTER → 2016-11-21 | Outpatient (REF) | payer MEDICARE, MEDICAID ==
[2016-11-21 09:14] LABS: MEAN CORPUSCULAR HGB CONC 33.5 g/dl (32.0-36.5); MEAN CORPUSCULAR VOLUME 98.5 fl (80.0-96.0); RED CELL DISTRIBUTION WIDTH 13.1 % (11.5-14.5)
[2016-11-21 09:55] LABS: ANION GAP 9 MEQ/L (8-16); BLOOD UREA NITROGEN 16 MG/DL (7-18); CALCIUM LEVEL 8.7 MG/DL (8.8-10.2); CARBON DIOXIDE LEVEL 28 MEQ/L (21-32); CHLORIDE LEVEL 104 MEQ/L (98-107); CREATININE FOR GFR 0.71 MG/DL (0.70-1.30); GLOMERULAR FILTRATION RATE > 60.0 (>42); GLUCOSE, FASTING 132 MG/DL (83-110); POTASSIUM SERUM 4.1 MEQ/L (3.5-5.1); SODIUM LEVEL 141 MEQ/L (136-145)
[2016-11-23 00:07] LABS: PHENOBARBITAL (PRIMIDONE) 30 ug/mL (15-40)
== END ==
PROVIDERS: ATTEND Internal Medicine
DX: R56.9 Unspecified convulsions (principal); J44.9 Chronic obstructive pulmonary disease, unspecified

== ENCOUNTER → 2017-02-20 | Outpatient (REF) | payer MEDICARE, MEDICAID ==
[2017-02-20 10:43] LABS: ANION GAP 9 MEQ/L (8-16); BLOOD UREA NITROGEN 12 MG/DL (7-18); CARBON DIOXIDE LEVEL 26 MEQ/L (21-32); CHLORIDE LEVEL 104 MEQ/L (98-107); CHOLESTEROL LEVEL 177 MG/DL (<200); CREATININE FOR GFR 0.71 MG/DL (0.70-1.30); GLOMERULAR FILTRATION RATE > 60.0 (>42); GLUCOSE, FASTING 113 MG/DL (83-110); POTASSIUM SERUM 4.2 MEQ/L (3.5-5.1); SODIUM LEVEL 139 MEQ/L (136-145); TRIGLYCERIDES LEVEL 119 MG/DL (<150)
[2017-02-20 10:44] LABS: VITAMIN B12 LEVEL 1162 PG/ML (247-911)
== END ==
PROVIDERS: ATTEND Internal Medicine
DX: E78.5 Hyperlipidemia, unspecified (principal)

== ENCOUNTER → 2017-05-16 | Outpatient (REF) | payer MEDICARE, MEDICAID ==
[2017-05-16 13:52] LABS: ALBUMIN 3.1 GM/DL (3.2-5.2); ALBUMIN/GLOBULIN RATIO 0.82 (1.00-1.93); ALKALINE PHOSPHATASE 201 U/L (45-117); ALT/SGPT 24 U/L (12-78); ANION GAP 9 MEQ/L (8-16); AST/SGOT 21 U/L (7-37); BILIRUBIN,TOTAL 0.3 MG/DL (0.2-1.0); BLOOD UREA NITROGEN 12 MG/DL (7-18); CALCIUM LEVEL 8.3 MG/DL (8.8-10.2); CARBON DIOXIDE LEVEL 27 MEQ/L (21-32); CHLORIDE LEVEL 104 MEQ/L (98-107); CREATININE FOR GFR 0.73 MG/DL (0.70-1.30); GLOMERULAR FILTRATION RATE > 60.0 (>42); GLUCOSE, FASTING 110 MG/DL (70-100); PHENYTOIN (DILANTIN) 12.3 UG/ML (10.0-20.0); POTASSIUM SERUM 3.9 MEQ/L (3.5-5.1); SODIUM LEVEL 140 MEQ/L (136-145); TOTAL PROTEIN 6.9 GM/DL (6.4-8.2)
[2017-05-16 14:10] LABS: BASO # 0.1 10^3/uL (0.0-0.2); EOS # 0.4 10^3/uL (0.0-0.50); EOS % 4.3 % (0.0-3.0); HEMATOCRIT 40.1 % (42.0-52.0); HEMOGLOBIN 13.8 g/dl (14.0-18.0); IMMATURE GRANULOCYTE % 0.2 % (0-3.0); LYMPH # 1.4 10^3/uL (1.5-4.5); LYMPH % 16.9 % (24.0-44.0); MEAN CORPUSCULAR HEMOGLOBIN 33.6 pg (27.0-33.0); MEAN CORPUSCULAR HGB CONC 34.4 g/dl (32.0-36.5); MEAN CORPUSCULAR VOLUME 97.6 fl (80.0-96.0); MONO # 0.5 10^3/uL (0.0-0.8); NEUTROPHILS # 5.9 10^3/uL (1.8-7.7); NEUTROPHILS % 71.6 % (36.0-66.0); PLATELET COUNT, AUTOMATED 253 10^3/uL (150-450); RED BLOOD COUNT 4.11 10^6/uL (4.30-6.10); RED CELL DISTRIBUTION WIDTH 13.2 % (11.5-14.5); WHITE BLOOD COUNT 8.3 10^3/uL (4.0-10.0)
== END ==
DX: G40.909 Epilepsy, unspecified, not intractable, without status epilepticus (principal)
CPT/HCPCS: 80185

== ENCOUNTER → 2017-05-22 | Outpatient (REF) | payer MEDICARE, MEDICAID ==
[2017-05-22 10:04] LABS: PHENYTOIN (DILANTIN) 12.2 UG/ML (10.0-20.0)
[2017-05-24 08:06] LABS: PHENOBARBITAL (PRIMIDONE) 20 ug/mL (15-40)
== END ==
DX: R56.9 Unspecified convulsions (principal)
CPT/HCPCS: 80185

== ENCOUNTER → 2017-07-09 | Outpatient (REF) | payer MEDICARE, MEDICAID ==
[2017-07-09 13:19] LABS: HEMATOCRIT 39.3 % (42.0-52.0); HEMOGLOBIN 13.6 g/dl (13.5-17.5); MEAN CORPUSCULAR HEMOGLOBIN 33.7 pg (27.0-33.0); MEAN CORPUSCULAR HGB CONC 34.6 g/dl (32.0-36.5); MEAN CORPUSCULAR VOLUME 97.5 fl (80.0-96.0); PLATELET COUNT, AUTOMATED 228 10^3/uL (150-450); RED BLOOD COUNT 4.03 10^6/uL (4.30-6.10); WHITE BLOOD COUNT 9.1 10^3/uL (4.0-10.0)
[2017-07-09 14:10] LABS: URIC ACID 7.2 MG/DL (3.5-7.2)
== END ==
DX: M25.532 Pain in left wrist (principal)
CPT/HCPCS: 84550

== ENCOUNTER → 2017-08-21 | Outpatient (REF) | payer MEDICARE, MEDICAID ==
[2017-08-21 12:01] LABS: HEMATOCRIT 42.5 % (42.0-52.0); HEMOGLOBIN 14.4 g/dl (13.5-17.5); MEAN CORPUSCULAR HEMOGLOBIN 33.3 pg (27.0-33.0); MEAN CORPUSCULAR HGB CONC 33.9 g/dl (32.0-36.5); MEAN CORPUSCULAR VOLUME 98.2 fl (80.0-96.0); PLATELET COUNT, AUTOMATED 278 10^3/uL (150-450); RED BLOOD COUNT 4.33 10^6/uL (4.30-6.10); WHITE BLOOD COUNT 10.5 10^3/uL (4.0-10.0)
[2017-08-21 12:39] LABS: TOTAL 25(OH) VITAMIN D 43.3 NG/ML (30.0-100.0)
[2017-08-21 12:40] LABS: VITAMIN B12 LEVEL 1343 PG/ML (247-911)
[2017-08-21 12:51] LABS: ANION GAP 10 MEQ/L (8-16); BLOOD UREA NITROGEN 16 MG/DL (7-18); CALCIUM LEVEL 8.1 MG/DL (8.8-10.2); CARBON DIOXIDE LEVEL 26 MEQ/L (21-32); CHLORIDE LEVEL 105 MEQ/L (98-107); CHOLESTEROL LEVEL 168 MG/DL (<200); CHOLESTEROL RISK RATIO 3.574 (<5); CREATININE FOR GFR 0.73 MG/DL (0.70-1.30); GLOMERULAR FILTRATION RATE > 60.0 (>42); GLUCOSE, FASTING 91 MG/DL (70-100); HDL CHOLESTEROL 47 MG/DL (>40); LDL CHOLESTEROL 70.8 MG/DL (<100); NON-HDL-C 121 MG/DL; PHENYTOIN (DILANTIN) 12.2 UG/ML (10.0-20.0); POTASSIUM SERUM 4.3 MEQ/L (3.5-5.1); SODIUM LEVEL 141 MEQ/L (136-145); TRIGLYCERIDES LEVEL 251 MG/DL (<150)
== END ==
DX: E78.5 Hyperlipidemia, unspecified (principal); J44.9 Chronic obstructive pulmonary disease, unspecified; E55.9 Vitamin D deficiency, unspecified; E53.8 Deficiency of other specified B group vitamins; R56.9 Unspecified convulsions
CPT/HCPCS: 80185

== ENCOUNTER → 2017-09-30 | Outpatient (REF) | payer MEDICARE, MEDICAID ==
[2017-09-30 04:41] LABS: HEMATOCRIT 38.6 % (42.0-52.0); HEMOGLOBIN 13.3 g/dl (13.5-17.5); MEAN CORPUSCULAR HEMOGLOBIN 33.8 pg (27.0-33.0); MEAN CORPUSCULAR HGB CONC 34.5 g/dl (32.0-36.5); PLATELET COUNT, AUTOMATED 188 10^3/uL (150-450); RED BLOOD COUNT 3.94 10^6/uL (4.30-6.10); RED CELL DISTRIBUTION WIDTH 13.2 % (11.5-14.5); WHITE BLOOD COUNT 11.3 10^3/uL (4.0-10.0)
[2017-09-30 04:46] LABS: ANION GAP 10 MEQ/L (8-16); BLOOD UREA NITROGEN 10 MG/DL (7-18); CALCIUM LEVEL 7.6 MG/DL (8.8-10.2); CARBON DIOXIDE LEVEL 26 MEQ/L (21-32); CHLORIDE LEVEL 100 MEQ/L (98-107); CREATININE FOR GFR 0.73 MG/DL (0.70-1.30); GLOMERULAR FILTRATION RATE > 60.0 (>42); GLUCOSE, FASTING 146 MG/DL (70-100); POTASSIUM SERUM 3.9 MEQ/L (3.5-5.1); SODIUM LEVEL 136 MEQ/L (136-145)
== END ==
DX: R50.9 Fever, unspecified (principal)
CPT/HCPCS: 80048

== ENCOUNTER → 2017-10-01 | Outpatient (REF) | payer MEDICARE, MEDICAID ==
[2017-10-01 13:58] LABS: HEMATOCRIT 36.1 % (42.0-52.0); HEMOGLOBIN 12.3 g/dl (13.5-17.5); MEAN CORPUSCULAR HEMOGLOBIN 33.1 pg (27.0-33.0); MEAN CORPUSCULAR HGB CONC 34.1 g/dl (32.0-36.5); PLATELET COUNT, AUTOMATED 182 10^3/uL (150-450); RED BLOOD COUNT 3.72 10^6/uL (4.30-6.10); RED CELL DISTRIBUTION WIDTH 13.2 % (11.5-14.5); WHITE BLOOD COUNT 8.3 10^3/uL (4.0-10.0)
== END ==
DX: J44.9 Chronic obstructive pulmonary disease, unspecified (principal); D72.829 Elevated white blood cell count, unspecified
CPT/HCPCS: 85027

== ENCOUNTER → 2017-11-20 | Outpatient (REF) | payer MEDICARE, MEDICAID ==
[2017-11-20 09:53] LABS: HEMATOCRIT 37.7 % (42.0-52.0); MEAN CORPUSCULAR HEMOGLOBIN 33.9 pg (27.0-33.0); MEAN CORPUSCULAR HGB CONC 34.5 g/dl (32.0-36.5); MEAN CORPUSCULAR VOLUME 98.4 fl (80.0-96.0); PLATELET COUNT, AUTOMATED 245 10^3/uL (150-450); RED BLOOD COUNT 3.83 10^6/uL (4.30-6.10); RED CELL DISTRIBUTION WIDTH 13.6 % (11.5-14.5); WHITE BLOOD COUNT 7.3 10^3/uL (4.0-10.0)
[2017-11-20 10:50] LABS: ANION GAP 12 MEQ/L (8-16); BLOOD UREA NITROGEN 10 MG/DL (7-18); CALCIUM LEVEL 8.6 MG/DL (8.8-10.2); CARBON DIOXIDE LEVEL 24 MEQ/L (21-32); CHLORIDE LEVEL 102 MEQ/L (98-107); CREATININE FOR GFR 0.61 MG/DL (0.70-1.30); GLOMERULAR FILTRATION RATE > 60.0 (>42); GLUCOSE, FASTING 110 MG/DL (70-100); PHENYTOIN (DILANTIN) 9.9 UG/ML (10.0-20.0); POTASSIUM SERUM 4.2 MEQ/L (3.5-5.1); SODIUM LEVEL 138 MEQ/L (136-145)
== END ==
DX: R56.9 Unspecified convulsions (principal); J44.9 Chronic obstructive pulmonary disease, unspecified
CPT/HCPCS: 80185

== ENCOUNTER 2017-12-15 16:49 | Inpatient (IN) | payer MEDICARE, MEDICAID ==
[2017-12-15 18:54] LABS: ALBUMIN 3.3 GM/DL (3.2-5.2); ALBUMIN/GLOBULIN RATIO 0.73 (1.00-1.93); ALKALINE PHOSPHATASE 200 U/L (45-117); ALT/SGPT 30 U/L (12-78); AMYLASE 34 U/L (25-115); ANION GAP 10 MEQ/L (8-16); AST/SGOT 35 U/L (7-37); BILIRUBIN,DIRECT 0.2 MG/DL (0.0-0.2); BILIRUBIN,TOTAL 0.6 MG/DL (0.2-1.0); BLOOD UREA NITROGEN 11 MG/DL (7-18); CARBON DIOXIDE LEVEL 25 MEQ/L (21-32); CHLORIDE LEVEL 98 MEQ/L (98-107); CREATININE FOR GFR 0.65 MG/DL (0.70-1.30); GLOMERULAR FILTRATION RATE > 60.0 (>42); GLUCOSE, FASTING 113 MG/DL (70-100); LIPASE 51 U/L (73-393); POTASSIUM SERUM 4.5 MEQ/L (3.5-5.1); SODIUM LEVEL 133 MEQ/L (136-145); TOTAL PROTEIN 7.8 GM/DL (6.4-8.2)
[2017-12-15 20:23] LABS: BASO # 0.1 10^3/uL (0.0-0.2); BASO % 0.3 % (0.0-1.0); EOS # 0.1 10^3/uL (0.0-0.50); EOS % 0.7 % (0.0-3.0); HEMATOCRIT 45.9 % (42.0-52.0); HEMOGLOBIN 15.8 g/dl (13.5-17.5); IMMATURE GRANULOCYTE % 0.5 % (0-3.0); LYMPH # 1.6 10^3/uL (1.5-4.5); LYMPH % 10.2 % (24.0-44.0); MEAN CORPUSCULAR HEMOGLOBIN 33.5 pg (27.0-33.0); MEAN CORPUSCULAR HGB CONC 34.4 g/dl (32.0-36.5); MEAN CORPUSCULAR VOLUME 97.5 fl (80.0-96.0); MONO # 1.3 10^3/uL (0.0-0.8); MONO % 8.3 % (0.0-5.0); NEUTROPHILS # 12.2 10^3/uL (1.8-7.7); PLATELET COUNT, AUTOMATED 332 10^3/uL (150-450); RED BLOOD COUNT 4.71 10^6/uL (4.30-6.10); RED CELL DISTRIBUTION WIDTH 13.2 % (11.5-14.5); WHITE BLOOD COUNT 15.2 10^3/uL (4.0-10.0)
[2017-12-15] MEDS: NS 1,000 ML IV (20:26)
[2017-12-15] MEDS: ONDANSETRON 4MG/2ML VIAL (J2405) IV (20:26)
[2017-12-15] MEDS: MORPHINE 4 MG/ML 1ML VIAL/SYRINGE (J2270) IV (20:26)
[2017-12-15] MEDS ORDERED: ISOVUE-370 76% 100ML VIAL (Q9967) As Ordered (20:45)
[2017-12-15] MEDS: PHENYTOIN 100 MG/2 ML VIAL (J1165) IV (23:27)
[2017-12-16] MEDS ORDERED: MORPHINE 4 MG/ML 1ML VIAL/SYRINGE (J2270) IV (00:45)
[2017-12-16] MEDS: LR 1,000 ML IV ×4 (01:58→20:16)
[2017-12-16] MEDS: PHENYTOIN ER 100 MG CAP PO ×4 (09:12→20:16)
[2017-12-16] MEDS: PRIMIDONE 125MG PER 1/2 TABLET PO ×3 (09:13→20:16)
[2017-12-16] MEDS: PANTOPRAZOLE 40MG INJ (PROTONIX) (C9113) IV (09:13)
[2017-12-16] MEDS: CEPACOL LOZENGE PO (12:47)
[2017-12-16] MEDS: ONDANSETRON 4MG/2ML VIAL (J2405) IV (14:23)
[2017-12-16] MEDS: METOCLOPRAMIDE INJ 10MG/2ML VIAL (J2765) IV (20:56)
[2017-12-17] MEDS: PRIMIDONE 125MG PER 1/2 TABLET PO ×3 (08:06→20:35)
[2017-12-17] MEDS: FLUBLOK(EGG FREE)(QUAD)INFLUENZA VACC 0.5ML SYRINGE (90682)18YRS&OLDER IM (08:06)
[2017-12-17] MEDS: PANTOPRAZOLE 40MG INJ (PROTONIX) (C9113) IV (08:06)
[2017-12-17] MEDS: PHENYTOIN ER 100 MG CAP PO ×4 (08:07→20:35)
[2017-12-17] MEDS: CEPACOL LOZENGE PO (08:07)
[2017-12-17 10:03] LABS: BASO # 0.1 10^3/uL (0.0-0.2); BASO % 0.5 % (0.0-1.0); EOS # 0.3 10^3/uL (0.0-0.50); EOS % 3.2 % (0.0-3.0); HEMATOCRIT 36.7 % (42.0-52.0); IMMATURE GRANULOCYTE % 0.5 % (0-3.0); LYMPH # 1.5 10^3/uL (1.5-4.5); LYMPH % 13.5 % (24.0-44.0); MEAN CORPUSCULAR HEMOGLOBIN 33.5 pg (27.0-33.0); MEAN CORPUSCULAR HGB CONC 33.8 g/dl (32.0-36.5); MEAN CORPUSCULAR VOLUME 99.2 fl (80.0-96.0); MONO # 0.9 10^3/uL (0.0-0.8); MONO % 8.8 % (0.0-5.0); NEUTROPHILS # 7.9 10^3/uL (1.8-7.7); NEUTROPHILS % 73.5 % (36.0-66.0); PLATELET COUNT, AUTOMATED 233 10^3/uL (150-450); RED CELL DISTRIBUTION WIDTH 13.2 % (11.5-14.5); WHITE BLOOD COUNT 10.7 10^3/uL (4.0-10.0)
[2017-12-17 10:12] LABS: HEMOGLOBIN 12.4 g/dl (13.5-17.5)
[2017-12-17 10:23] LABS: ALBUMIN 2.6 GM/DL (3.2-5.2); ALBUMIN/GLOBULIN RATIO 0.63 (1.00-1.93); ALKALINE PHOSPHATASE 134 U/L (45-117); ALT/SGPT 31 U/L (12-78); ANION GAP 7 MEQ/L (8-16); AST/SGOT 31 U/L (7-37); BILIRUBIN,TOTAL 0.5 MG/DL (0.2-1.0); BLOOD UREA NITROGEN 11 MG/DL (7-18); CALCIUM LEVEL 8.4 MG/DL (8.8-10.2); CARBON DIOXIDE LEVEL 28 MEQ/L (21-32); CHLORIDE LEVEL 105 MEQ/L (98-107); CREATININE FOR GFR 0.62 MG/DL (0.70-1.30); GLOMERULAR FILTRATION RATE > 60.0 (>42); GLUCOSE, FASTING 103 MG/DL (70-100); POTASSIUM SERUM 3.8 MEQ/L (3.5-5.1); SODIUM LEVEL 140 MEQ/L (136-145); TOTAL PROTEIN 6.7 GM/DL (6.4-8.2)
[2017-12-17] MEDS ORDERED: LIDOCAINE 1% MDV 20ML VIAL As Ordered (15:25)
[2017-12-17] MEDS: LR 1,000 ML IV (17:37)
[2017-12-17] MEDS: KETOROLAC 30 MG/ML VIAL (J1885) IV (22:36)
[2017-12-18] MEDS: LR 1,000 ML IV ×3 (02:40→21:24)
[2017-12-18] MEDS: SODIUM CHLORIDE 0.9% INJ 10 ML SYR IV ×2 (05:16→17:23)
[2017-12-18] MEDS: PHENYTOIN ER 100 MG CAP PO ×4 (08:54→21:24)
[2017-12-18] MEDS: PRIMIDONE 125MG PER 1/2 TABLET PO ×3 (08:54→21:24)
[2017-12-18] MEDS: PANTOPRAZOLE 40MG INJ (PROTONIX) (C9113) IV (08:55)
[2017-12-19] MEDS: SODIUM CHLORIDE 0.9% INJ 10 ML SYR IV ×2 (06:22→18:04)
[2017-12-19 06:39] LABS: BASO # 0.1 10^3/uL (0.0-0.2); BASO % 0.6 % (0.0-1.0); EOS # 0.7 10^3/uL (0.0-0.50); EOS % 7.2 % (0.0-3.0); HEMATOCRIT 33.7 % (42.0-52.0); HEMOGLOBIN 11.6 g/dl (13.5-17.5); IMMATURE GRANULOCYTE % 0.3 % (0-3.0); LYMPH # 1.6 10^3/uL (1.5-4.5); LYMPH % 17.4 % (24.0-44.0); MEAN CORPUSCULAR HEMOGLOBIN 34.1 pg (27.0-33.0); MEAN CORPUSCULAR HGB CONC 34.4 g/dl (32.0-36.5); MEAN CORPUSCULAR VOLUME 99.1 fl (80.0-96.0); MONO # 0.8 10^3/uL (0.0-0.8); MONO % 8.4 % (0.0-5.0); NEUTROPHILS # 6.2 10^3/uL (1.8-7.7); NEUTROPHILS % 66.1 % (36.0-66.0); PLATELET COUNT, AUTOMATED 216 10^3/uL (150-450); RED CELL DISTRIBUTION WIDTH 12.9 % (11.5-14.5); WHITE BLOOD COUNT 9.4 10^3/uL (4.0-10.0)
[2017-12-19 07:27] LABS: ANION GAP 8 MEQ/L (8-16); BLOOD UREA NITROGEN 7 MG/DL (7-18); CALCIUM LEVEL 7.8 MG/DL (8.8-10.2); CARBON DIOXIDE LEVEL 27 MEQ/L (21-32); CHLORIDE LEVEL 107 MEQ/L (98-107); CREATININE FOR GFR 0.49 MG/DL (0.70-1.30); GLOMERULAR FILTRATION RATE > 60.0 (>42); GLUCOSE, FASTING 83 MG/DL (70-100); POTASSIUM SERUM 3.6 MEQ/L (3.5-5.1); SODIUM LEVEL 142 MEQ/L (136-145)
[2017-12-19] MEDS: PANTOPRAZOLE 40MG TAB (PROTONIX) PO (08:47)
[2017-12-19] MEDS: PRIMIDONE 125MG PER 1/2 TABLET PO ×3 (08:48→21:33)
[2017-12-19] MEDS: PHENYTOIN ER 100 MG CAP PO ×4 (08:48→21:33)
[2017-12-19] MEDS ORDERED: MIRALAX *UNIT DOSE* 17GM PACKET PO (18:45)
[2017-12-20] MEDS: SODIUM CHLORIDE 0.9% INJ 10 ML SYR IV ×3 (06:57→18:03)
[2017-12-20] MEDS: PANTOPRAZOLE 40MG TAB (PROTONIX) PO (08:39)
[2017-12-20] MEDS: PHENYTOIN ER 100 MG CAP PO ×4 (08:39→20:26)
[2017-12-20] MEDS: FUROSEMIDE 40 MG TAB PO (08:39)
[2017-12-20] MEDS: PRIMIDONE 125MG PER 1/2 TABLET PO ×3 (08:39→20:26)
[2017-12-20] MEDS: ONDANSETRON 4MG/2ML VIAL (J2405) IV (08:45)
[2017-12-20] MEDS ORDERED: E-Z-PAQUE 96% w/w SUSP 176GM BTL As Ordered (13:02)
[2017-12-20] MEDS ORDERED: GASTROGRAFIN SOLUTION 30ML (Q9963) As Ordered (13:53)
[2017-12-21] MEDS: SODIUM CHLORIDE 0.9% INJ 10 ML SYR IV ×3 (05:15→16:25)
[2017-12-21] MEDS: PHENYTOIN ER 100 MG CAP PO ×4 (08:10→20:26)
[2017-12-21] MEDS: PANTOPRAZOLE 40MG TAB (PROTONIX) PO (08:10)
[2017-12-21] MEDS: PRIMIDONE 125MG PER 1/2 TABLET PO ×3 (08:10→20:25)
[2017-12-21] MEDS: FUROSEMIDE 40 MG TAB PO (08:11)
[2017-12-21] MEDS: DEXTRAN/HYPROMELLOSE OPHTH SOLN 15 ML(GENTEAL TEARS) OU (16:25)
[2017-12-21] MEDS ORDERED: ACETAMINOPHEN TAB 650MG DOSE (2X325MG) PO (19:00)
[2017-12-21] MEDS ORDERED: ALBUTEROL 90 MCG/ACT 8GM HFA INHALER INH (19:00)
[2017-12-21] MEDS ORDERED: DOCUSATE SODIUM 100 MG CAP PO (19:00)
[2017-12-21] MEDS: SIMVASTATIN 20 MG TAB PO (20:25)
[2017-12-22] MEDS: SODIUM CHLORIDE 0.9% INJ 10 ML SYR IV ×2 (05:28→17:20)
[2017-12-22 05:54] LABS: BASO # 0.1 10^3/uL (0.0-0.2); BASO % 0.9 % (0.0-1.0); EOS # 0.5 10^3/uL (0.0-0.50); EOS % 6.6 % (0.0-3.0); HEMATOCRIT 35.8 % (42.0-52.0); HEMOGLOBIN 12.2 g/dl (13.5-17.5); IMMATURE GRANULOCYTE % 0.2 % (0-3.0); LYMPH # 2.1 10^3/uL (1.5-4.5); LYMPH % 25.7 % (24.0-44.0); MEAN CORPUSCULAR HEMOGLOBIN 33.6 pg (27.0-33.0); MEAN CORPUSCULAR HGB CONC 34.1 g/dl (32.0-36.5); MEAN CORPUSCULAR VOLUME 98.6 fl (80.0-96.0); MONO # 0.7 10^3/uL (0.0-0.8); NEUTROPHILS # 4.7 10^3/uL (1.8-7.7); NEUTROPHILS % 57.6 % (36.0-66.0); PLATELET COUNT, AUTOMATED 235 10^3/uL (150-450); RED BLOOD COUNT 3.63 10^6/uL (4.30-6.10); RED CELL DISTRIBUTION WIDTH 13.2 % (11.5-14.5); WHITE BLOOD COUNT 8.2 10^3/uL (4.0-10.0)
[2017-12-22 06:42] LABS: ALBUMIN 2.5 GM/DL (3.2-5.2); ALBUMIN/GLOBULIN RATIO 0.71 (1.00-1.93); ALKALINE PHOSPHATASE 137 U/L (45-117); ALT/SGPT 56 U/L (12-78); ANION GAP 8 MEQ/L (8-16); AST/SGOT 51 U/L (7-37); BILIRUBIN,TOTAL 0.3 MG/DL (0.2-1.0); BLOOD UREA NITROGEN 7 MG/DL (7-18); CALCIUM LEVEL 7.6 MG/DL (8.8-10.2); CARBON DIOXIDE LEVEL 29 MEQ/L (21-32); CHLORIDE LEVEL 103 MEQ/L (98-107); CREATININE FOR GFR 0.62 MG/DL (0.70-1.30); GLOMERULAR FILTRATION RATE > 60.0 (>42); GLUCOSE, FASTING 90 MG/DL (70-100); POTASSIUM SERUM 2.8 MEQ/L (3.5-5.1); SODIUM LEVEL 140 MEQ/L (136-145)
[2017-12-22] MEDS: POTASSIUM CHLORIDE 10 MEQ SR TABLET PO ×2 (06:57→09:49)
[2017-12-22] MEDS: PRIMIDONE 125MG PER 1/2 TABLET PO ×3 (08:29→21:09)
[2017-12-22] MEDS: FUROSEMIDE 40 MG TAB PO (08:29)
[2017-12-22] MEDS: PHENYTOIN ER 100 MG CAP PO ×4 (08:30→21:09)
[2017-12-22] MEDS: PANTOPRAZOLE 40MG TAB (PROTONIX) PO (08:30)
[2017-12-22] MEDS: DOCUSATE SODIUM 100 MG CAP PO ×2 (13:28→21:09)
[2017-12-22] MEDS: LACTOBACILLUS ACIDOPHILUS CAP (BACID) PO (17:18)
[2017-12-22] MEDS: SENNA 8.6 MG TAB (SENOKOT) PO (21:09)
[2017-12-22] MEDS: SIMVASTATIN 20 MG TAB PO (21:09)
[2017-12-22] MEDS: DEXTRAN/HYPROMELLOSE OPHTH SOLN 15 ML(GENTEAL TEARS) OU (21:09)
[2017-12-23] MEDS: DEXTRAN/HYPROMELLOSE OPHTH SOLN 15 ML(GENTEAL TEARS) OU (05:54)
[2017-12-23] MEDS: SODIUM CHLORIDE 0.9% INJ 10 ML SYR IV (05:54)
[2017-12-23] MEDS: DOCUSATE SODIUM 100 MG CAP PO (08:50)
[2017-12-23] MEDS: LACTOBACILLUS ACIDOPHILUS CAP (BACID) PO ×2 (08:50→11:56)
[2017-12-23] MEDS: PRIMIDONE 125MG PER 1/2 TABLET PO (08:50)
[2017-12-23] MEDS: SENNA 8.6 MG TAB (SENOKOT) PO (08:50)
[2017-12-23] MEDS: FUROSEMIDE 40 MG TAB PO (08:51)
[2017-12-23] MEDS: PHENYTOIN ER 100 MG CAP PO ×2 (08:51→11:56)
[2017-12-23] MEDS: PANTOPRAZOLE 40MG TAB (PROTONIX) PO (08:51)
== END 2017-12-23 12:20 | DRG 390 ==
LOC: M ED INP 12-16 00:40 → M MSPAV 12-16 03:02 → M ED 16:49
PROC: 02HV33Z Insertion of Infusion Device into Superior Vena Cava, Percutaneous Approach (ICD-10-PCS; principal; 2017-12-17)
PROC: B51N1ZA Fluoroscopy of Left Upper Extremity Veins using Low Osmolar Contrast, Guidance (ICD-10-PCS; 2017-12-17)
DX: K56.600 Partial intestinal obstruction, unspecified as to cause (principal); G80.9 Cerebral palsy, unspecified; Z90.49 Acquired absence of other specified parts of digestive tract; Z79.51 Long term (current) use of inhaled steroids; Z79.899 Other long term (current) drug therapy; Z98.41 Cataract extraction status, right eye; Z98.42 Cataract extraction status, left eye; G40.909 Epilepsy, unspecified, not intractable, without status epilepticus; E78.5 Hyperlipidemia, unspecified; I10 Essential (primary) hypertension; Z86.718 Personal history of other venous thrombosis and embolism; M81.0 Age-related osteoporosis without current pathological fracture

== ENCOUNTER → 2017-12-24 | Outpatient (REF) | payer MEDICARE, MEDICAID ==
[2017-12-24 12:44] LABS: HEMATOCRIT 40.4 % (42.0-52.0); HEMOGLOBIN 13.8 g/dl (13.5-17.5); MEAN CORPUSCULAR HEMOGLOBIN 33.4 pg (27.0-33.0); MEAN CORPUSCULAR HGB CONC 34.2 g/dl (32.0-36.5); MEAN CORPUSCULAR VOLUME 97.8 fl (80.0-96.0); PLATELET COUNT, AUTOMATED 279 10^3/uL (150-450); RED BLOOD COUNT 4.13 10^6/uL (4.30-6.10); RED CELL DISTRIBUTION WIDTH 13.3 % (11.5-14.5); WHITE BLOOD COUNT 9.4 10^3/uL (4.0-10.0)
[2017-12-24 13:40] LABS: ALBUMIN 2.8 GM/DL (3.2-5.2); ALKALINE PHOSPHATASE 155 U/L (45-117); ALT/SGPT 60 U/L (12-78); ANION GAP 10 MEQ/L (8-16); AST/SGOT 45 U/L (7-37); BILIRUBIN,TOTAL 0.5 MG/DL (0.2-1.0); BLOOD UREA NITROGEN 11 MG/DL (7-18); CARBON DIOXIDE LEVEL 28 MEQ/L (21-32); CHLORIDE LEVEL 102 MEQ/L (98-107); CREATININE FOR GFR 0.69 MG/DL (0.70-1.30); GLOMERULAR FILTRATION RATE > 60.0 (>42); GLUCOSE, FASTING 101 MG/DL (70-100); POTASSIUM SERUM 3.2 MEQ/L (3.5-5.1); SODIUM LEVEL 140 MEQ/L (136-145); TOTAL PROTEIN 6.8 GM/DL (6.4-8.2)
== END ==
DX: G40.909 Epilepsy, unspecified, not intractable, without status epilepticus (principal)
CPT/HCPCS: 80053

== ENCOUNTER → 2018-01-01 | Outpatient (REF) | payer MEDICARE, MEDICAID ==
[2018-01-01 11:04] LABS: PHENYTOIN (DILANTIN) 16.9 UG/ML (10.0-20.0)
== END ==
DX: R56.9 Unspecified convulsions (principal)
CPT/HCPCS: 80185

== ENCOUNTER → 2018-02-20 | Outpatient (REF) | payer MEDICARE, MEDICAID ==
[~2018-02-20] MED LIST changes: +ACET-683 PO; +ACET1TAB55 PO; -DRIS50002 PO; +DRIS50003 PO; +ENEMENE6 PR; +MILK12002 PO; -MILKSUS PO; +TUSS15SY2 PO; +VITA10002 PO; -VITA1CAP40 PO; +VITA50005 PO; -VOLT1GEL15 TD; +VOLT1GEL15 TOP; +XALA0.007 OU
[2018-02-20 09:56] LABS: HEMATOCRIT 39.7 % (42.0-52.0); HEMOGLOBIN 13.2 g/dl (13.5-17.5); MEAN CORPUSCULAR HEMOGLOBIN 32.9 pg (27.0-33.0); MEAN CORPUSCULAR HGB CONC 33.2 g/dl (32.0-36.5); PLATELET COUNT, AUTOMATED 254 10^3/uL (150-450); RED BLOOD COUNT 4.01 10^6/uL (4.30-6.10); WHITE BLOOD COUNT 6.8 10^3/uL (4.0-10.0)
[2018-02-20 10:41] LABS: ALBUMIN 2.8 GM/DL (3.2-5.2); ALT/SGPT 23 U/L (12-78); BILIRUBIN,TOTAL 0.3 MG/DL (0.2-1.0); BLOOD UREA NITROGEN 14 MG/DL (7-18); CALCIUM LEVEL 8.1 MG/DL (8.8-10.2); CARBON DIOXIDE LEVEL 25 MEQ/L (21-32); CHLORIDE LEVEL 105 MEQ/L (98-107); CHOLESTEROL LEVEL 176 MG/DL (<200); CHOLESTEROL RISK RATIO 4.512 (<5); CREATININE FOR GFR 0.57 MG/DL (0.70-1.30); GLOMERULAR FILTRATION RATE > 60.0 (>42); GLUCOSE, FASTING 87 MG/DL (70-100); HDL CHOLESTEROL 39 MG/DL (>40); LDL CHOLESTEROL 96 MG/DL (<100); NON-HDL-C 137 MG/DL; POTASSIUM SERUM 4.5 MEQ/L (3.5-5.1); SODIUM LEVEL 138 MEQ/L (136-145); TOTAL 25(OH) VITAMIN D 57.4 NG/ML (30.0-100.0); TOTAL PROTEIN 6.8 GM/DL (6.4-8.2); TRIGLYCERIDES LEVEL 206 MG/DL (<150); VITAMIN B12 LEVEL 790 PG/ML (247-911)
== END ==
PROVIDERS: ATTEND Internal Medicine
DX: R56.9 Unspecified convulsions (principal); E78.5 Hyperlipidemia, unspecified; E55.9 Vitamin D deficiency, unspecified; E53.8 Deficiency of other specified B group vitamins; Z79.899 Other long term (current) drug therapy

== ENCOUNTER → 2018-02-27 | Outpatient (REF) | payer MEDICARE, MEDICAID ==
[2018-02-27 08:24] LABS: HEMATOCRIT 38.2 % (42.0-52.0); MEAN CORPUSCULAR HEMOGLOBIN 33.4 pg (27.0-33.0); MEAN CORPUSCULAR VOLUME 98.2 fl (80.0-96.0); PLATELET COUNT, AUTOMATED 250 10^3/uL (150-450); RED BLOOD COUNT 3.89 10^6/uL (4.30-6.10); WHITE BLOOD COUNT 7.6 10^3/uL (4.0-10.0)
[2018-02-27 08:27] LABS: ALBUMIN 2.8 GM/DL (3.2-5.2); ALT/SGPT 24 U/L (12-78); AMYLASE 31 U/L (25-115); BILIRUBIN,TOTAL 0.2 MG/DL (0.2-1.0); BLOOD UREA NITROGEN 10 MG/DL (7-18); CARBON DIOXIDE LEVEL 25 MEQ/L (21-32); CHLORIDE LEVEL 104 MEQ/L (98-107); CREATININE FOR GFR 0.64 MG/DL (0.70-1.30); GLOMERULAR FILTRATION RATE > 60.0 (>42); GLUCOSE, FASTING 98 MG/DL (70-100); LIPASE 75 U/L (73-393); POTASSIUM SERUM 3.9 MEQ/L (3.5-5.1); SODIUM LEVEL 138 MEQ/L (136-145)
--- NOTE | 2018-02-27 13:49 | REP ---
Findings: There are clips in right upper quadrant suggestive of a previous cholecystectomy. Air and stool is visible in the sigmoid colon. Air is seen in the stomach. No small or large bowel dilation is seen. Impression: Normal gas pattern. Clips in the right upper quadrant. Electronically Signed by Dedrick Herrera MD 02/27/2018 06:51 P
== END ==
PROVIDERS: ATTEND Internal Medicine
DX: R10.9 Unspecified abdominal pain (principal)

== ENCOUNTER → 2018-05-10 | Outpatient (CLI) | payer MEDICARE, MEDICAID ==
[~2018-05-10] MED LIST changes: -LASI40TA PO; +LASI40TA9 PO; +MILK120011 PO; -MILK12002 PO
--- NOTE | 2018-05-10 11:28 | REP ---
CT cervical spine without contrast HISTORY: Head injury COMPARISON: 07/19/2010 There is no acute fracture . There is no acute fracture or subluxation. There are old ununited fractures of the C6 lamina and C7 and T1 the spinous processes. A disc bulge is present at the C2-3 and C6-7 levels. A small central disc protrusion with associated osteophyte formation is present at the C3-4 level. Disc bulges with associated osteophyte formation are present at the C4-5 and a C5-6 levels. There is minimal narrowing of the spinal canal. Uncinate process and/or facet hypertrophy are present at the C2-3 through C5-6 levels. These findings produce minimal to mild narrowing of the neural foramina. The cervical intervertebral discs are decreased in height consistent with disc degeneration. There are 2 mm of anterior subluxation of C2 on C3. Impression: 1. There is no acute fracture. 2. There is cervical spondylosis at the C2-3 through C7-T1 levels. Electronically Signed by James Palma MD 05/10/2018 11:21 A
== END ==
LOC: M RAD 09:44
PROVIDERS: ATTEND Internal Medicine
DX: R20.0 Anesthesia of skin (principal); R20.2 Paresthesia of skin

== ENCOUNTER 2018-06-05 17:47 | Inpatient (IN) | payer MEDICARE, MEDICAID ==
[~2018-06-05] VITALS: Ht 180.3 cm; Wt 108.8 kg
[~2018-06-05 17:47] MED LIST changes: -BISA5TAB5 PO; -ISOVUE-370 76% 100ML VIAL (Q9967) As Ordered ONE; -MILKSUS21 PO; -OMEP-218 PO; -ONDA4TAB5 PO; -SENN1TAB36 PO; -SUCR1TA PO; -ZADI1DRO OU
[2018-06-05] MEDS ORDERED: NS 1,000 ML IV SCH (17:59)
[2018-06-05] MEDS ORDERED: MILKSUS21 PO (18:26)
[2018-06-05] MEDS ORDERED: SENN1TAB36 PO (18:26)
[2018-06-05] MEDS ORDERED: ZADI1DRO OU (18:31)
[2018-06-05] MEDS ORDERED: BISA5TAB5 PO (18:31)
[2018-06-05] MEDS ORDERED: ONDA4TAB5 PO (18:31)
[2018-06-05 18:33] LABS: BASO % 0.5 % (0.0-1.0); EOS # 0.2 10^3/uL (0.0-0.50); EOS % 3.5 % (0.0-3.0); HEMATOCRIT 43.7 % (42.0-52.0); HEMOGLOBIN 15.1 g/dl (13.5-17.5); LYMPH # 1.4 10^3/uL (1.5-4.5); LYMPH % 21.4 % (24.0-44.0); MEAN CORPUSCULAR HEMOGLOBIN 33.8 pg (27.0-33.0); MEAN CORPUSCULAR HGB CONC 34.6 g/dl (32.0-36.5); MEAN CORPUSCULAR VOLUME 97.8 fl (80.0-96.0); MONO # 0.8 10^3/uL (0.0-0.8); MONO % 11.7 % (0.0-5.0); NEUTROPHILS # 4.1 10^3/uL (1.8-7.7); NEUTROPHILS % 62.6 % (36.0-66.0); PLATELET COUNT, AUTOMATED 222 10^3/uL (150-450); RED BLOOD COUNT 4.47 10^6/uL (4.30-6.10); WHITE BLOOD COUNT 6.5 10^3/uL (4.0-10.0)
[2018-06-05 18:49] LABS: INR 1.05; PROTHROMBIN TIME 13.8 SECONDS (12.1-14.4)
[2018-06-05 18:50] LABS: ALT/SGPT 39 U/L (12-78); BILIRUBIN,DIRECT 0.3 MG/DL (0.0-0.2); BILIRUBIN,TOTAL 0.6 MG/DL (0.2-1.0); BLOOD UREA NITROGEN 20 MG/DL (7-18); CALCIUM LEVEL 8.3 MG/DL (8.8-10.2); CARBON DIOXIDE LEVEL 24 MEQ/L (21-32); CHLORIDE LEVEL 98 MEQ/L (98-107); CPK CREATINE PHOSPHOKINASE 51 U/L (39-308); CREATININE FOR GFR 0.85 MG/DL (0.70-1.30); GLOMERULAR FILTRATION RATE > 60.0 (>42); GLUCOSE, FASTING 115 MG/DL (70-100); LIPASE 98 U/L (73-393); MB/CK RELATIVE INDEX 2.35 (< OR =4); PHENYTOIN (DILANTIN) 13.9 UG/ML (10.0-20.0); POTASSIUM SERUM 3.8 MEQ/L (3.5-5.1); SODIUM LEVEL 133 MEQ/L (136-145); TOTAL PROTEIN 7.3 GM/DL (6.4-8.2); TROPONIN I 0.05 NG/ML (< 0.10)
[2018-06-05 18:50] LABS: PARTIAL THROMBOPLASTIN TIME 28.8 SECONDS (25.4-37.6)
--- NOTE | 2018-06-05 19:02 | REP ---
Portable chest, single AP sitting view, 06:45 p.m.: Comparison is the PA and lateral chest t dated 12/05/2015. There is a nasogastric tube terminating in the upper abdomen. The patient is rotated. The visualized lung bailey are clear. Cardiac size cannot be determined because of patient rotation. Electronically Signed by Olivier Goodwin MD 06/05/2018 06:53 P
[2018-06-05] MEDS ORDERED: POLYVINYL ALCOHOL OPHTH SOLN 15 ML(LIQUITEARS) OU PRN (19:30)
[2018-06-05] MEDS: KCL 20MEQ in NS 1000ML 1,000 ML IV SCH ×2 (19:47→22:45)
[2018-06-05] MEDS ORDERED: ENOXAPARIN 40 MG/0.4 ML SYRINGE (J1650) SC ONE (20:00)
[2018-06-05] MEDS ORDERED: CETACAINE SPRAY 5GM TOP ONE (20:15)
[2018-06-05 20:35] VITALS: BP 131/63
[2018-06-05] MEDS ORDERED: PILL CRUSHER/CUTTER 1 EACH XX PRN (21:00)
--- NOTE | 2018-06-05 21:50 | ECGEPIP ---
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
--- NOTE | 2018-06-05 22:22 | HPE ---
DATE OF ADMISSION: 06/05/2018 PRIMARY CARE PROVIDER: Teresa Jacinto DO ATTENDING PHYSICIAN: Hospitalist group. SURGEON: Olivier Zhao MD HISTORY: Niraj Kenny is a 73-year-old resident of [facility] admitted with small bowel obstruction. For four days he has had increasing abdominal distention and pain. He was sent to the emergency room. CT abdomen and pelvis showed a small bowel obstruction. He is being admitted for decompression and surgical consultation. He has history of recurrent small bowel obstructions going back to mid . Most recently admitted under Dr. Mike's service 11/2017 and bowel obstruction resolved with nasogastric decompression. PAST MEDICAL HISTORY: Patient has a history of a seizure disorder, which is relatively stable. He says he has not had any recent seizures. He has cerebral palsy and has left-sided weakness, upper extremity and lower extremity. He has hyperlipidemia, hypertension, has a past history of deep venous thrombosis (DVT) in the remote past as well as some osteoporosis with osteoporotic right hip fracture. PAST SURGICAL HISTORY: Laparoscopic cholecystectomy in 1999. Exploratory laparotomy 1995. Cataract extraction 1999. Left hip fracture 1997. Right hip fracture 2012. Small bowel obstruction treated surgically 2006, treated nonsurgically several times since then, most recently 11/2017. ALLERGIES: None known. MEDICATIONS: - Tylenol as needed - albuterol nebulizer as needed - vitamin B12 2000 mcg by mouth daily - Voltaren gel three times a day - furosemide 40 mg daily - various eye drops - dilantin 100 mg three times a day, 200 mg at bedtime (500 mg daily dose) - primidone 125 mg three times a day - simvastatin 20 mg at bedtime - Drisdol 50,000 units weekly - multivitamins - Tylenol as needed - senna/docusate 2 tablets at bedtime - milk of magnesia as needed REVIEW OF SYSTEMS: No hematemesis, rectal bleeding, unexplained weight loss, cough, wheeze, shortness of breath, rectal bleeding, inner ear bleeding, epistaxis, fever, chills, night sweats. SOCIAL HISTORY: Nonsmoker. No alcohol. Resident of [facility]. He has a level IV consistent CEF thin liquid diet. He uses mechanical lift for transfers and is nonambulatory. PHYSICAL EXAMINATION: Vital signs per flow sheet. General appearance: Very conversant. Quite talkative. Pupils equal, round and reactive to light. TMs and oropharynx benign. Nasal cavity with tube placed. Lungs clear. Heart without murmur. Abdomen obese, mildly distended. Appears to be mildly tender. Extremities: No clubbing, cyanosis or edema. He has a right upper extremity contracture. No contracture of the lower extremity. Good distal pulses. LABS: CT scan of abdomen and pelvis shows significant luminal narrowing of the terminal ileum without significant wall thickening suggesting terminal ileum stricture, dilatation of entire small bowel, multiple air fluid levels. No ascites. Chest x-ray showed no active disease. White count 6.5, hemoglobin 15, platelets 222, sodium 133, potassium 3.8, BUN 20, creatinine 0.8. Glucose 115. PT and PTT normal. Dilantin level 13.9. IMPRESSION: 1. Small bowel obstruction. Patient will be admitted to the hospital service. Case was discussed with Dr. Zhao. No definitive surgical intervention is planned. Hopefully the patient will respond to nasogastric suctioning again. He will be admitted to the medical bed on epigastric suctioning ordered. IV fluids ordered. Surgical consultation planned. 2. Seizure disorder. Continue with his dilantin and primidone. Giving these orally and holding nasogastric suctioning for half an hour after each dose. He coming into this with therapeutic dilantin level. 3. Hyperlipidemia. Will hold his simvastatin for now, which will restarted after the acute episode is over. 4. History of deep venous thrombosis. DVT prophylaxis with Lovenox has been ordered. 5. Hypertension. Hold his antihypertensives. At this point it only looks like he is taking furosemide. He is a little prerenal on his lab work. Will hold his diuretics and give him some IV fluids. He will be nothing by mouth. 6. History of osteoporosis with osteoporotic fracture. He is not on the bisphosphonate as an outpatient. It might be worth considering this after his discharge.
[2018-06-05] MEDS: PHENYTOIN ER 100 MG CAP PO SCH (22:41)
[2018-06-05] MEDS: PRIMIDONE 250 MG TAB PO SCH (22:42)
[2018-06-05] MEDS: LATANOPROST 0.005% OPHTH SOLN 2.5 ML OU SCH (22:43)
[2018-06-06 02:00] VITALS: BP 128/67
[2018-06-06] MEDS: KCL 20MEQ in NS 1000ML 1,000 ML IV SCH ×3 (04:32→19:57)
[2018-06-06 06:00] VITALS: BP 139/72
[2018-06-06 06:21] LABS: HEMATOCRIT 38.4 % (42.0-52.0); HEMOGLOBIN 13.2 g/dl (13.5-17.5); MEAN CORPUSCULAR HEMOGLOBIN 33.2 pg (27.0-33.0); MEAN CORPUSCULAR HGB CONC 34.4 g/dl (32.0-36.5); MEAN CORPUSCULAR VOLUME 96.5 fl (80.0-96.0); PLATELET COUNT, AUTOMATED 214 10^3/uL (150-450); RED BLOOD COUNT 3.98 10^6/uL (4.30-6.10); WHITE BLOOD COUNT 7.1 10^3/uL (4.0-10.0)
[2018-06-06 06:34] LABS: BLOOD UREA NITROGEN 18 MG/DL (7-18); CARBON DIOXIDE LEVEL 23 MEQ/L (21-32); CHLORIDE LEVEL 105 MEQ/L (98-107); CREATININE FOR GFR 0.69 MG/DL (0.70-1.30); GLOMERULAR FILTRATION RATE > 60.0 (>42); GLUCOSE, FASTING 85 MG/DL (70-100); POTASSIUM SERUM 4.3 MEQ/L (3.5-5.1); SODIUM LEVEL 136 MEQ/L (136-145)
--- NOTE | 2018-06-06 08:23 | CR ---
DATE OF CONSULTATION: 06/06/2018 CHIEF COMPLAINT: Abdominal distension. HISTORY OF PRESENT ILLNESS: The patient is a 73-year-old male, currently a resident at [facility]. He presents with a 4-day history of increasing abdominal distension and pain. He was thought to have the flu along with the rest of his floor, so his workup was put off for a few days. When he insisted that this was not flu symptoms they sent him for a CAT scan, which showed a small bowel obstruction and he was subsequently sent to the emergency room for evaluation. Labs and vitals were stable. However, he did have significant distension of the entire small bowel with concern for a stricture at the terminal ileum. Therefore, I was called to consult. He has had multiple small bowel obstructions in the past with questionable Crohn disease, however, nothing has ever been positively diagnosed. He was most recently in the hospital last November with Dr. Mike for very similar symptoms and he was able to be treated medically with nasogastric (NG) decompression and discharged at that time without requiring another operation, but he has had multiple surgeries for small bowel obstruction in the past. He denies any current nausea or vomiting, mainly just the abdominal distension. When I went in to see him this morning, he had just had a very large loose bowel movement and his abdomen is soft. He currently denies any pain. No nausea or vomiting. He feels that his distension has already significantly improved. PAST MEDICAL HISTORY: 1. Seizure disorder. 2. cerebral palsy. 3. Hyperlipidemia. 4. Hypertension. 5. History of deep venous thrombosis (DVT). 6. Osteoporosis. PAST SURGICAL HISTORY: 1. Laparoscopic cholecystectomy. 2. Exploratory laparotomy for bowel obstruction. 3. Cataract surgery. 4. Left and right hip surgeries. 5. Small bowel obstruction surgery in 2006. ALLERGIES: NONE. HOME MEDICATIONS: Please see med rec. REVIEW OF SYSTEMS: Pertinent positives and negative as stated in the history of present illness (HPI). SOCIAL HISTORY: negative PHYSICAL EXAMINATION: General: Alert and oriented times three. No acute distress. Vital signs: Temperature 96.7, pulse 71, respiratory rate 16, blood pressure 128/67, pulse oximetry 93% on 2 liters nasal cannula. HEENT: Pupils equal, round, react to light and accommodation. Heart: S1, S2, regular rate and rhythm. Lungs: Clear to auscultation bilaterally. Abdomen: Soft, distended, nontender. There is midline vertical incision scars from previous surgery. No signs of any ventral or incisional hernias. Extremities: Bilateral lower extremity pitting edema. LABORATORY DATA: White count 7.1. Hemoglobin 13.2. Platelets 214. Potassium 4.3. Creatinine 0.69. IMAGING: CT abdomen and pelvis from yesterday shows luminal narrowing of the terminal ileum without significant wall thickening suggestive of a terminal ileal stricture. There is air dilation of the proximal small bowel with multiple air fluid levels. 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 Recommendation at this time is to attempt to treat medically, NG tube decompression and IV fluids. He is already showing signs of passage of stools and relief of this obstruction. We will continue to treat him medically for up 72 hours or more. At this point, he would like to avoid surgery if at all possible. He is concerned about it due to his age. If he is able to tolerate diet after 72 hours, then we be comfortable discharging him. However, if he does not open up completely by then, we will have to start discussing surgery with him. QUOC
[2018-06-06] MEDS: PRIMIDONE 250 MG TAB PO SCH ×3 (09:14→21:43)
[2018-06-06] MEDS: PHENYTOIN ER 100 MG CAP PO SCH ×4 (09:14→21:41)
[2018-06-06 10:00] VITALS: BP 113/58
--- NOTE | 2018-06-06 10:56 | IPNPDOC ---
Text Note Date of Service The patient was seen on 06/06/18. NOTE Subjective: Patient is a 73-year-old male from [facility] with a PMHx of Cerebral palsy with L sided weakness, Seizure disorder, Hx of DVT, HTN, DLP, Osteoporosis who presented to the ER with complaints of abdominal pain and distension. Patient had a CT scan completed as an outpatient that revealed small bowel obstruction and he was sent to the emergency room for further evaluation. Patient was admitted to hospitalist service for further evaluation and treatment and Dr. Zhao, of surgery was called on consultation. Patient has a history of recurrent small bowel obstructions going back to mid , most recent of which was 11/2017. Patient was seen and examined at the bedside. Patient has had an NG tube placed yesterday evening and has reported that since that point. His abdominal distention has improved and his pain has improved significantly. He denies any chest pain, shortness of breath or palpitations. Reports a small bowel movement yesterday. Denies any discomfort with urination. Objective: Vitals (See below) General: Lying in bed, no acute distress, comfortable, AAOx3 HEENT: NC, AT, NG tube in place CVS: +S1S2 Lungs: Fair air entry b/l, -w/r/r Abdomen: Soft, Mild distension, Mild tenderness diffusely Extremities: - Edema, - Calf tenderness Assessment and plan: Small bowel obstruction - Patient has noted improvement in his abdominal pain and distention - He has NG tube that is set to gravity - XR abdomen 06/05: There is bowel distension, greater than on the comparison study. Bowel obstruction cannot be excluded. Patient rotated. - CT abdomen / pelvis 06/05: There is significant luminal narrowing of the terminal ileum without significant wall thickening, suggestive of terminal ileum stricture. There is dilatation of the entire small bowel with multiple air-fluid levels, compatible with small bowel obstruction. There is no pneumoperitoneum or ascites. - CXR 06/05: There is a nasogastric tube terminating in the upper abdomen. The patient is rotated. The visualized lung bailey are clear. Cardiac size cannot be determined because of patient rotation. - c/w IV fluids; will advance diet as per surgery - General surgery, Dr. Zhao is on consultation Seizure disorder - Phenytoin level now appears within normal limits - c/w Phenytoin and Primidone - will hold NGT suctioning 30 minutes after administration - Will repeat Phenytoin level tomorrow DLP - Hold Simvastatin Hx of DVT - Currently not on full anticoagulation - c/w DVT prophylaxis HTN - BP appears moderately controlled - Patient is on Furosemide as an outpatient; will hold for now - c/w IV fluids Osteoporosis - Resume bisphosphonate on discharge DVT prophylaxis - c/w Lovenox VS,Fishbone, I+O VS, Fishbone, I+O Laboratory Tests 06/05/18 18:17 Red Blood Count 4.47, Mean Corpuscular Volume 97.8 H, Mean Corpuscular Hemoglobin 33.8 H, Mean Corpuscular Hemoglobin Concent 34.6, Red Cell Distribution Width 13.0, Neutrophils (%) (Auto) 62.6, Lymphocytes (%) (Auto) 21.4 L, Monocytes (%) (Auto) 11.7 H, Eosinophils (%) (Auto) 3.5 H, Basophils (%) (Auto) 0.5, Neutrophils # (Auto) 4.1, Lymphocytes # (Auto) 1.4 L, Monocytes # (Auto) 0.8, Eosinophils # (Auto) 0.2, Basophils # (Auto) 0.0 06/06/18 05:41 Red Blood Count 3.98 L, Mean Corpuscular Volume 96.5 H, Mean Corpuscular Hemoglobin 33.2 H, Mean Corpuscular Hemoglobin Concent 34.4, Red Cell Distribution Width 13.1, Calcium Level 8.0 L Vital Signs Date Time Temp Pulse Resp B/P (MAP) Pulse Ox O2 Delivery O2 Flow Rate FiO2 06/06/18 09:40 1.0 06/06/18 06:00 97.4 63 18 139/72 (94) 95 06/05/18 19:53 Nasal Cannula I&O- Last 24 Hours up to 6 AM 06/06/18 06:00 Intake Total 1387 ml Balance 1387 ml JOSÉ MIGUEL STEWART MD Jun 06, 2018 10:56
[2018-06-06 14:00] VITALS: BP 124/59
[2018-06-06 18:00] VITALS: BP 135/84
[2018-06-06] MEDS: ENOXAPARIN 40 MG/0.4 ML SYRINGE (J1650) SC SCH (21:43)
[2018-06-06] MEDS: LATANOPROST 0.005% OPHTH SOLN 2.5 ML OU SCH (21:43)
[2018-06-06 22:00] VITALS: BP 140/62
[2018-06-07 02:00] VITALS: BP 125/62
[2018-06-07] MEDS: KCL 20MEQ in NS 1000ML 1,000 ML IV SCH ×2 (03:50→12:00)
[2018-06-07 06:00] VITALS: BP 130/62
[2018-06-07 06:08] LABS: HEMATOCRIT 39.3 % (42.0-52.0); HEMOGLOBIN 13.1 g/dl (13.5-17.5); MEAN CORPUSCULAR HEMOGLOBIN 32.9 pg (27.0-33.0); MEAN CORPUSCULAR HGB CONC 33.3 g/dl (32.0-36.5); MEAN CORPUSCULAR VOLUME 98.7 fl (80.0-96.0); PLATELET COUNT, AUTOMATED 198 10^3/uL (150-450); RED BLOOD COUNT 3.98 10^6/uL (4.30-6.10); WHITE BLOOD COUNT 7.3 10^3/uL (4.0-10.0)
[2018-06-07 06:23] LABS: BLOOD UREA NITROGEN 11 MG/DL (7-18); CALCIUM LEVEL 7.8 MG/DL (8.8-10.2); CARBON DIOXIDE LEVEL 22 MEQ/L (21-32); CHLORIDE LEVEL 112 MEQ/L (98-107); CREATININE FOR GFR 0.54 MG/DL (0.70-1.30); GLOMERULAR FILTRATION RATE > 60.0 (>42); GLUCOSE, FASTING 70 MG/DL (70-100); POTASSIUM SERUM 4.4 MEQ/L (3.5-5.1); SODIUM LEVEL 143 MEQ/L (136-145)
--- NOTE | 2018-06-07 09:13 | IPNPDOC ---
Text Note Date of Service The patient was seen on 06/07/18. NOTE Subjective: Patient states that his abdominal pain is improved. He has been able to tolerate sips and chips. He is passing stool with mucus. He is passing gas as well. Denies any nausea, vomiting, diarrhea. 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 Plan: NG tube to intermittent suction, IV fluids KUB, with plan to advance diet to clear liquids if it looks like it is resolving Carafate and omeprazole for GI prophylaxis Continue to monitor, if he does not improve we will consider surgery VS,Fishbone, I+O VS, Fishbone, I+O Laboratory Tests 06/07/18 05:37 Red Blood Count 3.98 L, Mean Corpuscular Volume 98.7 H, Mean Corpuscular Hemoglobin 32.9, Mean Corpuscular Hemoglobin Concent 33.3, Red Cell Distribution Width 13.2, Calcium Level 7.8 L Vital Signs Date Time Temp Pulse Resp B/P (MAP) Pulse Ox O2 Delivery O2 Flow Rate FiO2 06/07/18 06:00 97.4 64 20 130/62 (84) 95 1.0 06/05/18 19:53 Nasal Cannula I&O- Last 24 Hours up to 6 AM 06/07/18 06:00 Intake Total 1680 ml Output Total 1100 ml Balance 580 ml GME ATTESTATION GME ATTESTATION My faculty preceptor for this patient encounter was physically present during the encounter and was fully available. All aspects of the patient interview, exa mination, medical decision making process, and medical care plan development were reviewed and approved by the faculty preceptor. The faculty preceptor is aware and concurs with the plan as stated in the body of this note and will attest to such by his/her cosignature. YANETH JOHNSON DO Jun 07, 2018 09:13
[2018-06-07] MEDS: PHENYTOIN ER 100 MG CAP PO SCH ×4 (09:35→20:17)
[2018-06-07] MEDS: SUCRALFATE 1 GM TAB PO SCH ×4 (09:35→20:16)
[2018-06-07] MEDS: PRIMIDONE 250 MG TAB PO SCH ×3 (09:35→20:17)
[2018-06-07] MEDS: OMEPRAZOLE 20 MG CAP PO SCH (09:35)
[2018-06-07 10:00] VITALS: BP 148/78
--- NOTE | 2018-06-07 10:15 | REP ---
KUB ABDOMEN AND PELVIS: Two KUB films of abdomen and pelvis performed and compared to prior studies 06/05/2018, 02/27/2018, and 12/17/2017. There is mild to moderate air scattered through the colon. Sigmoid colon is mildly distended. A couple of mildly dilated small bowel loops are seen in the pelvis. Bowel gas pattern is nonspecific with no compelling evidence of small bowel obstruction. There are phleboliths in the pelvis. There is osteopenia. There is a right hip prosthesis and there is metallic internal fixation in the proximal left femur. There are degenerative changes of the spine. IMPRESSION: Nonspecific bowel gas pattern with no compelling evidence for small bowel obstruction. Electronically Signed by Olivier Teran MD 06/07/2018 04:58 P
[2018-06-07 14:00] VITALS: BP 168/73
--- NOTE | 2018-06-07 15:05 | IPNPDOC ---
Text Note Date of Service The patient was seen on 06/07/18. NOTE Subjective: Patient is a 73-year-old male from [facility] with a PMHx of Cerebral palsy with L sided weakness, Seizure disorder, Hx of DVT, HTN, DLP, Osteoporosis who presented to the ER with complaints of abdominal pain and distension. Patient had a CT scan completed as an outpatient that revealed small bowel obstruction and he was sent to the emergency room for further evaluation. Patient was admitted to hospitalist service for further evaluation and treatment and Dr. Zhao, of surgery was called on consultation. Patient has a history of recurrent small bowel obstructions going back to mid , most recent of which was 11/2017. Patient was seen and examined at the bedside. . Currently, patient reports that his abdominal pain is not significant. Denies any nausea or vomiting. Has an NG tube in place. Denies chest pain, shortness of breath or palpitations. Denies any urinary discomfort. Objective: Vitals (See below) General: Lying in bed, no acute distress, comfortable, AAOx3 HEENT: NC, AT, NG tube in place CVS: +S1S2 Lungs: Fair air entry b/l, auscultation is without any wheezing, rales or rhonchi Abdomen: Soft, Mild distension, Mild tenderness diffusely Extremities: No evidence of lower extremity swelling, - Calf tenderness; right arm contractures Neuro: Weakness on R side Assessment and plan: Small bowel obstruction - Patient has noted improvement in his abdominal pain and distention - He has NG tube that is set to gravity - XR abdomen 06/05: There is bowel distension, greater than on the comparison study. Bowel obstruction cannot be excluded. Patient rotated. - CT abdomen / pelvis 06/05: There is significant luminal narrowing of the terminal ileum without significant wall thickening, suggestive of terminal ileum stricture. There is dilatation of the entire small bowel with multiple air-fluid levels, compatible with small bowel obstruction. There is no pneumoperitoneum or ascites. - CXR 06/05: There is a nasogastric tube terminating in the upper abdomen. The patient is rotated. The visualized lung bailey are clear. Cardiac size cannot be determined because of patient rotation. - XR abdoemn 06/07: Nonspecific bowel gas pattern with no compelling evidence for small bowel obstruction. - c/w IV fluids; will advance diet as per surgery - plan is to attempt full li quid diet - c/w Omeprazole / Sucralfate - General surgery, Dr. Zhao is on consultation Seizure disorder - Phenytoin level still remains within normal limits - c/w Phenytoin and Primidone - will hold NGT suctioning 30 minutes after administration DLP - Hold Simvastatin Hx of DVT - Currently not on full anticoagulation - c/w DVT prophylaxis HTN - BP appears moderately controlled - Patient is on Furosemide as an outpatient; will hold for now - c/w IV fluids Osteoporosis - Resume bisphosphonate on discharge DVT prophylaxis - c/w Lovenox VS,Fishbone, I+O VS, Fishbone, I+O Laboratory Tests 06/07/18 05:37 Red Blood Count 3.98 L, Mean Corpuscular Volume 98.7 H, Mean Corpuscular Hemoglobin 32.9, Mean Corpuscular Hemoglobin Concent 33.3, Red Cell Distribution Width 13.2, Calcium Level 7.8 L Vital Signs Date Time Temp Pulse Resp B/P (MAP) Pulse Ox O2 Delivery O2 Flow Rate FiO2 06/07/18 14:00 98.1 73 21 168/73 (104) 93 1.0 06/05/18 19:53 Nasal Cannula I&O- Last 24 Hours up to 6 AM 06/07/18 05:59 Intake Total 1680 ml Output Total 1100 ml Balance 580 ml JOSÉ MIGUEL STEWART MD Jun 07, 2018 15:05
[2018-06-07 18:00] VITALS: BP 150/69
[2018-06-07] MEDS: LATANOPROST 0.005% OPHTH SOLN 2.5 ML OU SCH (20:16)
[2018-06-07] MEDS: ENOXAPARIN 40 MG/0.4 ML SYRINGE (J1650) SC SCH (20:17)
[2018-06-07 22:00] VITALS: BP 142/74
[2018-06-08 02:00] VITALS: BP 148/74
[2018-06-08] MEDS: KCL 20MEQ in NS 1000ML 1,000 ML IV SCH ×2 (04:20→12:27)
[2018-06-08 06:00] VITALS: BP 128/56
[2018-06-08 06:37] LABS: HEMATOCRIT 35.8 % (42.0-52.0); HEMOGLOBIN 11.8 g/dl (13.5-17.5); MEAN CORPUSCULAR HEMOGLOBIN 33.1 pg (27.0-33.0); MEAN CORPUSCULAR VOLUME 100.6 fl (80.0-96.0); PLATELET COUNT, AUTOMATED 200 10^3/uL (150-450); RED BLOOD COUNT 3.56 10^6/uL (4.30-6.10); WHITE BLOOD COUNT 7.6 10^3/uL (4.0-10.0)
[2018-06-08 07:04] LABS: BLOOD UREA NITROGEN 6 MG/DL (7-18); CALCIUM LEVEL 7.5 MG/DL (8.8-10.2); CARBON DIOXIDE LEVEL 23 MEQ/L (21-32); CHLORIDE LEVEL 114 MEQ/L (98-107); CREATININE FOR GFR 0.56 MG/DL (0.70-1.30); GLOMERULAR FILTRATION RATE > 60.0 (>42); GLUCOSE, FASTING 83 MG/DL (70-100); POTASSIUM SERUM 4.1 MEQ/L (3.5-5.1); SODIUM LEVEL 145 MEQ/L (136-145)
--- NOTE | 2018-06-08 08:37 | IPN ---
DATE: 06/08/2018 The patient has been tolerating a full liquid diet. He still has an NG tube in and at this point he states that he is feeling well, he has been having bowel movements, he is not nauseated, and would like the NG tube out. On his physical exam, he is morbidly obese, nontender. He is mildly distended. IMPRESSION AND PLAN: The patient has slow, but progressive improvement of bowel function and evidence of resolution of his high-grade obstruction. It seems as though he is tolerating a diet at this point. It may be reasonable to progress his diet to a low residue diet as tolerated, but otherwise at this point it may be reasonable with his comorbidities and recurrence of these issues to keep him on a full liquid diet today and then progress to a low residue diet tomorrow. He understands our current plan and we will see how he does with the full liquid diet without the NG tube in place.
[2018-06-08] MEDS: SUCRALFATE 1 GM TAB PO SCH ×4 (09:20→20:58)
[2018-06-08] MEDS: OMEPRAZOLE 20 MG CAP PO SCH (09:20)
[2018-06-08] MEDS: PHENYTOIN ER 100 MG CAP PO SCH ×4 (09:20→20:58)
[2018-06-08] MEDS: PRIMIDONE 250 MG TAB PO SCH ×3 (09:20→20:58)
[2018-06-08 10:00] VITALS: BP 143/65
--- NOTE | 2018-06-08 12:56 | IPNPDOC ---
Text Note Date of Service The patient was seen on 06/08/18. NOTE Subjective: Patient is a 73-year-old male from [facility] with a PMHx of Cerebral palsy with L sided weakness, Seizure disorder, Hx of DVT, HTN, DLP, Osteoporosis who presented to the ER with complaints of abdominal pain and distension. Patient had a CT scan completed as an outpatient that revealed small bowel obstruction and he was sent to the emergency room for further evaluation. Patient was admitted to hospitalist service for further evaluation and treatment and Dr. Zhao, of surgery was called on consultation. Patient has a history of recurrent small bowel obstructions going back to mid , most recent of which was 11/2017. Patient was seen and examined at the bedside. , Currently patient notes that he is tolerating his full liquid diet. He denies any abdominal pain. Positive distention has improved. Denies nausea or vomiting. Has had a few bowel movements that have been loose. Denies any discomfort with urination. Denies chest pain, shortness of breath or palpitations. Objective: Vitals (See below) General: Lying in bed, no acute distress, comfortable, AAOx3 HEENT: NC, AT, NG tube in place CVS: +S1S2 Lungs: Air entry is fair bilaterally without evidence of wheezing, rhonchi or rales Abdomen: Soft, no significant distention. No evidence of tenderness Extremities: No edema noted, - Calf tenderness; right arm contractures Neuro: Weakness on R side Assessment and plan: Small bowel obstruction - No reported abdominal pain, physical without any distention / tenderness - He has NG tube that is set to gravity - XR abdomen 06/05: There is bowel distension, greater than on the comparison study. Bowel obstruction cannot be excluded. Patient rotated. - CT abdomen / pelvis 06/05: There is significant luminal narrowing of the terminal ileum without significant wall thickening, suggestive of terminal ileum stricture. There is dilatation of the entire small bowel with multiple air-fluid levels, compatible with small bowel obstruction. There is no pneumoperitoneum or ascites. - CXR 06/05: There is a nasogastric tube terminating in the upper abdomen. The patient is rotated. The visualized lung bailey are clear. Cardiac size cannot be determined because of patient rotation. - XR abdoemn 06/07: Nonspecific bowel gas pattern with no compelling evidence for small bowel obstruction. - c/w IV fluids; will advance diet as per surgery - plan is to attempt full liquid diet - c/w Omeprazole / Sucralfate - Plan for NG tube removal and continue with full liquid diet only today; po tential start of low residue diet tomorrow, 06/09/2018 - General surgery / Dr. Zhao / Dr. Garduno on consultation Seizure disorder - Phenytoin level still remains within normal limits - c/w Phenytoin and Primidone DLP - Hold Simvastatin; will consider resuming in next 24-48 hours Hx of DVT - Currently not on full anticoagulation - c/w DVT prophylaxis HTN - BP appears moderately controlled - Patient is on Furosemide as an outpatient; will hold for now - Will discontinue IV fluids Osteoporosis - Resume bisphosphonate on discharge DVT prophylaxis - c/w Lovenox Disposition: - Will advance diet to low residue diet next 24 hours as per surgery VS,Saeidbone, I+O VS, Fishbone, I+O Laboratory Tests 06/08/18 05:41 Red Blood Count 3.56 L, Mean Corpuscular Volume 100.6 H, Mean Corpuscular Hemoglobin 33.1 H, Mean Corpuscular Hemoglobin Concent 33.0, Red Cell Distribution Width 13.2, Calcium Level 7.5 L Vital Signs Date Time Temp Pulse Resp B/P (MAP) Pulse Ox O2 Delivery O2 Flow Rate FiO2 06/08/18 10:00 97.2 65 19 143/65 (91) 91 06/07/18 18:00 1.0 06/05/18 19:53 Nasal Cannula I&O- Last 24 Hours up to 6 AM 06/08/18 06:00 Intake Total 2215 ml Output Total 1550 ml Balance 665 ml JOSÉ MIGUEL STEWART MD Jun 08, 2018 12:56
[2018-06-08 14:00] VITALS: BP 128/61
[2018-06-08 18:00] VITALS: BP 146/68
[2018-06-08] MEDS: ENOXAPARIN 40 MG/0.4 ML SYRINGE (J1650) SC SCH (20:58)
[2018-06-08] MEDS: LATANOPROST 0.005% OPHTH SOLN 2.5 ML OU SCH (20:58)
[2018-06-08 22:00] VITALS: BP 146/67
[2018-06-09 02:00] VITALS: BP 143/66
[2018-06-09 06:00] VITALS: BP 117/57
[2018-06-09 06:32] LABS: HEMATOCRIT 34.3 % (42.0-52.0); HEMOGLOBIN 11.5 g/dl (13.5-17.5); MEAN CORPUSCULAR HEMOGLOBIN 32.8 pg (27.0-33.0); MEAN CORPUSCULAR HGB CONC 33.5 g/dl (32.0-36.5); MEAN CORPUSCULAR VOLUME 97.7 fl (80.0-96.0); PLATELET COUNT, AUTOMATED 197 10^3/uL (150-450); RED BLOOD COUNT 3.51 10^6/uL (4.30-6.10); WHITE BLOOD COUNT 8.1 10^3/uL (4.0-10.0)
[2018-06-09 07:01] LABS: BLOOD UREA NITROGEN 6 MG/DL (7-18); CALCIUM LEVEL 7.4 MG/DL (8.8-10.2); CARBON DIOXIDE LEVEL 22 MEQ/L (21-32); CHLORIDE LEVEL 111 MEQ/L (98-107); GLOMERULAR FILTRATION RATE > 60.0 (>42); GLUCOSE, FASTING 81 MG/DL (70-100); POTASSIUM SERUM 3.6 MEQ/L (3.5-5.1); SODIUM LEVEL 141 MEQ/L (136-145)
[2018-06-09] MEDS: OMEPRAZOLE 20 MG CAP PO SCH (08:38)
[2018-06-09] MEDS: PRIMIDONE 250 MG TAB PO SCH ×3 (08:38→20:11)
[2018-06-09] MEDS: SUCRALFATE 1 GM TAB PO SCH ×4 (08:38→20:10)
[2018-06-09] MEDS: PHENYTOIN ER 100 MG CAP PO SCH ×4 (08:38→20:10)
--- NOTE | 2018-06-09 10:31 | IPNPDOC ---
Text Note Date of Service The patient was seen on 06/09/18. NOTE Subjective: Patient is a 73-year-old male from [facility] with a PMHx of Cerebral palsy with L sided weakness, Seizure disorder, Hx of DVT, HTN, DLP, Osteoporosis who presented to the ER with complaints of abdominal pain and distension. Patient had a CT scan completed as an outpatient that revealed small bowel obstruction and he was sent to the emergency room for further evaluation. Patient was admitted to hospitalist service for further evaluation and treatment and Dr. Zhao, of surgery was called on consultation. Patient has a history of recurrent small bowel obstructions going back to mid , most recent of which was 11/2017. Patient was seen and examined at the bedside. Has been tolerating his full liquid diet without his NG tube in place. He denies any abdominal pain. Has not experienced any nausea, vomiting. Has experienced a few bowel movements. Denies any discomfort with urination. Denies chest pain. Chest breath or palpitations Objective: Vitals (See below) General: Lying in bed, no acute distress, comfortable, AAOx3 HEENT: NC, AT, NG tube in place CVS: +S1S2 Lungs: Bases without any wheezing, rhonchi, rales and air entry appears to be fair bilaterally Abdomen: Abdomen is obese but remains soft without distention or tenderness Extremities: Lower extremities do not reveal any significant extent of edema, - Calf tenderness; right arm contractures Neuro: Weakness on R side Assessment and plan: Small bowel obstruction - No reported abdominal pain, physical without any distention / tenderness - He has NG tube that is set to gravity - XR abdomen 06/05: There is bowel distension, greater than on the comparison study. Bowel obstruction cannot be excluded. Patient rotated. - CT abdomen / pelvis 06/05: There is significant luminal narrowing of the terminal ileum without significant wall thickening, suggestive of terminal ileum stricture. There is dilatation of the entire small bowel with multiple air-fluid levels, compatible with small bowel obstruction. There is no pneumoperitoneum or ascites. - CXR 06/05: There is a nasogastric tube terminating in the upper abdomen. The patient is rotated. The visualized lung bailey are clear. Cardiac size cannot be determined because of patient rotation. - XR abdoemn 06/07: Nonspecific bowel gas pattern with no compelling evidence for small bowel obstruction. - c/w IV fluids; will advance diet as per surgery - plan is to attempt full liquid diet - c/w Omeprazole / Sucralfate - NG tube was removed on 06/08; plan to advance diet to low residue if surgery agrees - General surgery / Dr. Zhao / Dr. Garduno on consultation Seizure disorder - Phenytoin level still remains within normal limits - c/w Phenytoin and Primidone DLP - Will restart Simvastatin Hx of DVT - Currently not on full anticoagulation - c/w DVT prophylaxis HTN - BP appears moderately controlled - Patient is on Furosemide as an outpatient; will hold for now - s/p IV fluids Osteoporosis - Resume bisphosphonate on discharge DVT prophylaxis - c/w Lovenox Disposition: - Plan to advance diet today - Anticipate transition to SSV tomorrow VS,Fishbone, I+O VS, Fishbone, I+O Laboratory Tests 06/09/18 05:31 Red Blood Count 3.51 L, Mean Corpuscular Volume 97.7 H, Mean Corpuscular Hemoglobin 32.8, Mean Corpuscular Hemoglobin Concent 33.5, Red Cell Distribution Width 13.2, Calcium Level 7.4 L Vital Signs Date Time Temp Pulse Resp B/P (MAP) Pulse Ox O2 Delivery O2 Flow Rate FiO2 06/09/18 06:00 97.1 60 20 117/57 (77) 97 06/07/18 18:00 1.0 06/05/18 19:53 Nasal Cannula I&O- Last 24 Hours up to 6 AM 06/09/18 06:00 Intake Total 2335 ml Output Total 425 ml Balance 1910 ml JOSÉ MIGUEL STEWART MD Jun 09, 2018 10:31
--- NOTE | 2018-06-09 11:22 | IPN ---
DATE OF VISIT: 06/09/2018 Overall the patient has done well. He had his NG tube removed yesterday and tolerated a regular diet this morning. He has not had any nausea. He states that it feels a little full, but otherwise feeling pretty good. His abdomen is morbidly obese, nontender. No guarding. No rebound. No peritoneal signs are appreciated. He had two bowel movements already today. He has had good urine output and he has been afebrile. IMPRESSION AND PLAN: The patient has resolved his bowel obstruction and at this time it is okay for surgical discharge. Followup on a as needed basis is reasonable. He can followup with his primary care provider for this issue. He has had numerous evaluations over the years for the chronic obstructive/small bowel obstructions and has not opted for operative intervention. Thus at this point, followup is reasonable on a as needed basis from a surgical standpoint.
[2018-06-09] MEDS: LACTOBACILLUS ACIDOPHILUS CAP (BACID) PO SCH ×2 (11:43→20:10)
[2018-06-09] MEDS: CYANOCOBALAMIN 500 MCG TAB PO SCH (11:43)
[2018-06-09] MEDS: MULTIVITAMINS/MINERALS THERAP 1 TAB PO SCH (11:44)
[2018-06-09] MEDS: FUROSEMIDE 40 MG TAB PO SCH (11:44)
[2018-06-09 14:00] VITALS: BP 145/66
[2018-06-09] MEDS: ENOXAPARIN 40 MG/0.4 ML SYRINGE (J1650) SC SCH (20:09)
[2018-06-09] MEDS: SIMVASTATIN 20 MG TAB PO SCH (20:10)
[2018-06-09] MEDS: LATANOPROST 0.005% OPHTH SOLN 2.5 ML OU SCH (20:15)
[2018-06-09 22:00] VITALS: BP 147/64
[2018-06-10 06:00] VITALS: BP 140/66
[2018-06-10 06:28] LABS: HEMATOCRIT 34.5 % (42.0-52.0); HEMOGLOBIN 11.8 g/dl (13.5-17.5); MEAN CORPUSCULAR HEMOGLOBIN 32.9 pg (27.0-33.0); MEAN CORPUSCULAR HGB CONC 34.2 g/dl (32.0-36.5); MEAN CORPUSCULAR VOLUME 96.1 fl (80.0-96.0); PLATELET COUNT, AUTOMATED 234 10^3/uL (150-450); RED BLOOD COUNT 3.59 10^6/uL (4.30-6.10); WHITE BLOOD COUNT 7.3 10^3/uL (4.0-10.0)
[2018-06-10 06:54] LABS: BLOOD UREA NITROGEN 6 MG/DL (7-18); CARBON DIOXIDE LEVEL 25 MEQ/L (21-32); CHLORIDE LEVEL 108 MEQ/L (98-107); CREATININE FOR GFR 0.56 MG/DL (0.70-1.30); GLOMERULAR FILTRATION RATE > 60.0 (>42); GLUCOSE, FASTING 89 MG/DL (70-100); POTASSIUM SERUM 3.1 MEQ/L (3.5-5.1); SODIUM LEVEL 141 MEQ/L (136-145)
[2018-06-10] MEDS ORDERED: POTASSIUM CHLORIDE 10 MEQ SR TABLET PO ONE (08:00)
[2018-06-10] MEDS: LACTOBACILLUS ACIDOPHILUS CAP (BACID) PO SCH ×2 (09:49→21:02)
[2018-06-10] MEDS ORDERED: OMEP-218 PO (09:50)
[2018-06-10] MEDS: CYANOCOBALAMIN 500 MCG TAB PO SCH (09:50)
[2018-06-10] MEDS: OMEPRAZOLE 20 MG CAP PO SCH (09:50)
[2018-06-10] MEDS: PHENYTOIN ER 100 MG CAP PO SCH ×4 (09:50→21:03)
[2018-06-10] MEDS: FUROSEMIDE 40 MG TAB PO SCH (09:50)
[2018-06-10] MEDS: SUCRALFATE 1 GM TAB PO SCH ×4 (09:50→21:03)
[2018-06-10] MEDS ORDERED: SUCR1TA PO (09:50)
[2018-06-10] MEDS: MULTIVITAMINS/MINERALS THERAP 1 TAB PO SCH (09:51)
[2018-06-10] MEDS ORDERED: FLEET ENEMA PR PRN (10:00)
[2018-06-10] MEDS ORDERED: MIRALAX *UNIT DOSE* 17GM PACKET PO PRN (10:00)
[2018-06-10] MEDS: BISACODYL 5 MG TAB PO SCH (10:09)
[2018-06-10] MEDS: PRIMIDONE 250 MG TAB PO SCH ×3 (10:09→21:03)
[2018-06-10] MEDS ORDERED: MIRALAX *UNIT DOSE* 17GM PACKET PO ONE (13:30)
[2018-06-10 14:00] VITALS: BP 133/64
[2018-06-10 18:00] VITALS: BP 134/64
[2018-06-10] MEDS ORDERED: SENOKOT S TAB PO SCH (21:00)
[2018-06-10] MEDS: ENOXAPARIN 40 MG/0.4 ML SYRINGE (J1650) SC SCH (21:03)
[2018-06-10] MEDS: LATANOPROST 0.005% OPHTH SOLN 2.5 ML OU SCH (21:03)
[2018-06-10] MEDS: SIMVASTATIN 20 MG TAB PO SCH (21:03)
[2018-06-10 22:00] VITALS: BP 118/57
[2018-06-11 02:00] VITALS: BP 119/55
[2018-06-11 06:00] VITALS: BP 124/61
[2018-06-11 06:10] LABS: HEMATOCRIT 35.1 % (42.0-52.0); MEAN CORPUSCULAR HGB CONC 34.2 g/dl (32.0-36.5); MEAN CORPUSCULAR VOLUME 96.4 fl (80.0-96.0); PLATELET COUNT, AUTOMATED 246 10^3/uL (150-450); RED BLOOD COUNT 3.64 10^6/uL (4.30-6.10); WHITE BLOOD COUNT 6.8 10^3/uL (4.0-10.0)
[2018-06-11 06:29] LABS: BLOOD UREA NITROGEN 6 MG/DL (7-18); CALCIUM LEVEL 7.6 MG/DL (8.8-10.2); CARBON DIOXIDE LEVEL 26 MEQ/L (21-32); CHLORIDE LEVEL 108 MEQ/L (98-107); CREATININE FOR GFR 0.63 MG/DL (0.70-1.30); GLOMERULAR FILTRATION RATE > 60.0 (>42); GLUCOSE, FASTING 85 MG/DL (70-100); POTASSIUM SERUM 3.6 MEQ/L (3.5-5.1); SODIUM LEVEL 140 MEQ/L (136-145)
[2018-06-11] MEDS: MULTIVITAMINS/MINERALS THERAP 1 TAB PO SCH (08:17)
[2018-06-11] MEDS: PRIMIDONE 250 MG TAB PO SCH (08:17)
[2018-06-11] MEDS: LACTOBACILLUS ACIDOPHILUS CAP (BACID) PO SCH (08:17)
[2018-06-11] MEDS: OMEPRAZOLE 20 MG CAP PO SCH (08:17)
[2018-06-11] MEDS: CYANOCOBALAMIN 500 MCG TAB PO SCH (08:17)
[2018-06-11] MEDS: SUCRALFATE 1 GM TAB PO SCH (08:18)
[2018-06-11] MEDS: BISACODYL 5 MG TAB PO SCH (08:18)
[2018-06-11] MEDS: PHENYTOIN ER 100 MG CAP PO SCH (08:18)
[2018-06-11] MEDS: FUROSEMIDE 40 MG TAB PO SCH (08:20)
--- NOTE | 2018-06-11 12:33 | DS.PDOC ---
Discharge Summary General Date of Admission Jun 05, 2018 at 19:27 Date of Discharge June 11, 2018 Discharge Summary GENERAL SURGERY: DR. GETACHEW GARDUNO DISCHARGE DIAGNOSES: Small Bowel Obstruction Seizure disorder. cerebral palsy. Hyperlipidemia. Hypertension. History of deep venous thrombosis (DVT). Osteoporosis. DISCHARGE MEDICATIONS: PLS SEE BELOW HISTORY OF PRESENTING ILLNESS: Niraj Kenny is a 73-year-old resident of [facility] admitted with small bowel obstruction. For four days he has had increasing abdominal distention and pain. He was sent to the emergency room. CT abdomen and pelvis showed a small bowel obstruction. He is being admitted for decompression and surgical consultation. He has history of recurrent small bowel obstructions going back to mid . Most recently admitted under Dr. Mike's service 11/2017 and bowel obstruction resolved with nasogastric decompression. HOSPITAL COURSE: Small bowel obstruction - No reported abdominal pain, physical without any distention / tenderness - He has NG tube that is set to gravity - XR abdomen 06/05: There is bowel distension, greater than on the comparison study. Bowel obstruction cannot be excluded. Patient rotated. - CT abdomen / pelvis 06/05: There is significant luminal narrowing of the terminal ileum without significant wall thickening, suggestive of terminal ileum stricture. There is dilatation of the entire small bowel with multiple air-fluid levels, compatible with small bowel obstruction. There is no pneumoperitoneum or ascites. - CXR 06/05: There is a nasogastric tube terminating in the upper abdomen. The patient is rotated. The visualized lung bailey are clear. Cardiac size cannot be determined because of patient rotation. - XR abdoemn 06/07: Nonspecific bowel gas pattern with no compelling evidence for small bowel obstruction. - c/w IV fluids; will advance diet as per surgery - tolerated advancement of diet. - c/w Omeprazole / Sucralfate - NG tube was removed on 06/08; plan to advance diet to low residue if surgery agrees - General surgery / Dr. Zhao / Dr. Garduno on consultation Seizure disorder - Phenytoin level still remains within normal limits - c/w Phenytoin and Primidone DLP - Will restart Simvastatin Hx of DVT - Currently not on full anticoagulation - c/w DVT prophylaxis HTN - BP appears moderately controlled - Patient is on Furosemide as an outpatient; will hold for now - s/p IV fluids Osteoporosis - Resume bisphosphonate on discharge DVT prophylaxis - c/w Lovenox DISCHARGE PHYSICAL EXAMINATION: Vitals (See below) General: Lying in bed, no acute distress, comfortable, AAOx3 HEENT: NC, AT, NG tube in place CVS: +S1S2 Lungs: Bases without any wheezing, rhonchi, rales and air entry appears to be fair bilaterally Abdomen: Abdomen is obese but remains soft without distention or tenderness Extremities: Lower extremities do not reveal any significant extent of edema, - Calf tenderness; right arm contractures Neuro: Weakness on R side LABORATORY DATA, IMAGING STUDIES, MICROBIOLOGY: PLS SEE BELOW TIME SPENT ON DISCHARGE: 30 MIN. Vital Signs/I&Os Vital Signs Date Time Temp Pulse Resp B/P (MAP) Pulse Ox O2 Delivery O2 Flow Rate FiO2 06/11/18 06:00 97.3 60 18 124/61 (82) 93 06/07/18 18:00 1.0 06/05/18 19:53 Nasal Cannula I&O- Last 24 Hours up to 6 AM 06/11/18 05:59 Intake Total 1420 ml Output Total 2325 ml Balance -905 ml Laboratory Data Labs 24H Laboratory Tests 2 06/11/18 05:39: Nucleated Red Blood Cells % (auto) 0.0, Anion Gap 6L, Glomerular Filtration Rate > 60.0, Blood Urea Nitrogen 6L, Creatinine 0.63L, Sodium Level 140, Potassium Level 3.6, Chloride Level 108H, Carbon Dioxide Level 26, Calcium Level 7.6L CBC/BMP Laboratory Tests 06/11/18 05:39 Red Blood Count 3.64 L, Mean Corpuscular Volume 96.4 H, Mean Corpuscular Hemog lobin 33.0, Mean Corpuscular Hemoglobin Concent 34.2, Red Cell Distribution Width 12.9, Calcium Level 7.6 L Microbiology Microbiology 06/05/18 Blood Culture - Final, Complete NO GROWTH AFTER 5 DAYS 06/05/18 Blood Culture - Final, Complete NO GROWTH AFTER 5 DAYS Discharge Medications Scheduled Acetaminophen (Acetaminophen) 500 Mg Tab, 500 MG PO QHS, (Reported) Bisacodyl (Bisacodyl) 5 Mg Tablet.dr, 5 MG PO DAILY, (Reported) Cyanocobalamin (Vitamin B-12) (Vitamin B-12) 1,000 Mcg Tab, 2,000 MCG PO DAILY, (Reported) Ergocalciferol (Vitamin D2) (Drisdol) 50,000 Unit Cap, 50,000 UNIT PO QWEEK, (Reported) FRIDAYS Furosemide (Lasix) 40 Mg Tab, 40 MG PO DAILY, (Reported) Ketotifen Fumarate (Zaditor) 5 Ml Drops, 1 DROP OU BID, (Reported) L.acidoph/L.bulg/B.bif/S.therm (Bacid Caplet) 1 Tab Tab, 1 TAB PO BID, (Reported) Latanoprost (Xalatan) 0.005 % Anayeli, 1 DROP OU QHS, (Reported) Magnesium Hydroxide (Milk of Magnesia) 400 Mg/5 Ml Oral.susp, 1,200 MG PO DAILY, (Reported) Multivitamins (Thera M Plus Tablet) 1 Tab Tab, 1 TAB PO DAILY, (Reported) Omeprazole (Omeprazole) 20 Mg Capsule.dr, 20 MG PO DAILY Phenytoin Sodium Extended (Dilantin) 100 Mg Cap, 100 MG PO TID, (Reported) 0800, 1200, 1600 Phenytoin Sodium Extended (Dilantin) 100 Mg Cap, 200 MG PO QHS, (Reported) Primidone (Primidone) 250 Mg Tab, 125 MG PO TID, (Reported) Sennosides/Docusate Sodium (Docusate Sodium-Senna Tablet) 1 Each Tablet, 2 TAB PO QHS, (Reported) Simvastatin (Simvastatin) 20 Mg Tab, 20 MG PO QHS, (Reported) Sucralfate (Sucralfate) 1 Gm Tablet, 1 GM PO QID Scheduled PRN Acetaminophen (Acetaminophen) 325 Mg Tab, 650 MG PO Q4H PRN for PAIN, (Reported) Albuterol Sulf (Albuterol Sulfate) 2.5 Mg/3 Ml Nebu, 1 DOSE INH Q2H PRN for SHORTNESS OF BREATH, (Reported) Dextromethorphan HBr (Tussin Cough) 15 Mg/5 Ml Syp, 20 ML PO Q4H PRN for COUGH, (Reported) Diclofenac Sodium (Voltaren) 1 % Gel, 1 DOSE TOP TID PRN for PAIN, (Reported) Ondansetron HCl (Ondansetron HCl) 4 Mg Tablet, 4 MG PO Q6H PRN for NAUSEA OR VOMITING, (Reported) Polyethylene Glycol 3350 (Miralax) 1 Pow Pow, 1 DOSE PO DAILY PRN for CONSTIPATION, (Reported) Polyvinyl Alcohol (Artificial Tears) 1.4 % Anayeli, 1 DROP OU Q4H PRN for DRY EYES, (Reported) Sodium Phosphate,Bent-Dibasic (Enema Ready To Use) 1 Edith Ediht, 1 DOSE [place] DAILY PRN for CONSTIPATION, (Reported) Allergies Coded Allergies: No Known Allergies (Verified , 06/11/16) GERARDO SANCHEZ MD Jun 11, 2018 12:26
== END 2018-06-11 11:37 | DRG 390 ==
LOC: EDBD 17:47 → M ED 17:47 → M ED INP 19:27 → M MSPAV 20:35
PROVIDERS: ADMIT Family Medicine; ATTEND General Practice
DX: K56.609 Unspecified intestinal obstruction, unspecified as to partial versus complete obstruction (principal); G40.909 Epilepsy, unspecified, not intractable, without status epilepticus; G80.9 Cerebral palsy, unspecified; E78.5 Hyperlipidemia, unspecified; I10 Essential (primary) hypertension; E66.01 Morbid (severe) obesity due to excess calories; M81.0 Age-related osteoporosis without current pathological fracture; Z86.718 Personal history of other venous thrombosis and embolism; Z98.49 Cataract extraction status, unspecified eye; Z90.49 Acquired absence of other specified parts of digestive tract; Z79.899 Other long term (current) drug therapy; Z68.33 Body mass index [BMI] 33.0-33.9, adult

== ENCOUNTER → 2018-06-05 | Outpatient (REF) | payer MEDICARE, MEDICAID ==
[~2018-06-05] MED LIST changes: -/MOM400 PO; +BISA5TAB5 PO; +KONS100P4 PO; +LATA0.0013 OU; -LATA5OPD OU; -METAPKT PO; +MILK10SU PO; +MILKSUS21 PO; +ONDA4TAB5 PO; +SENN1TAB36 PO; +ZADI1DRO OU
--- NOTE | 2018-06-05 12:32 | REP ---
Supine abdomen two views: Comparison is 02/27/2018. The patient is rotated. There are dilated bowel loops, predominantly colonic loops. The bowel is dilated to a slightly greater degree on the comparison study. Bowel obstruction cannot be excluded. No calcific occasions are identified. There is a right hip arthroplasty. There are surgical clips in the right upper quadrant. Impression: There is bowel distension, greater than on the comparison study. Bowel obstruction cannot be excluded. Patient rotated. Electronically Signed by Olivier Goodwin MD 06/05/2018 12:23 P
[2018-06-05 13:38] LABS: HEMOGLOBIN 14.1 g/dl (13.5-17.5); MEAN CORPUSCULAR HEMOGLOBIN 34.2 pg (27.0-33.0); MEAN CORPUSCULAR HGB CONC 35.3 g/dl (32.0-36.5); MEAN CORPUSCULAR VOLUME 97.1 fl (80.0-96.0); PLATELET COUNT, AUTOMATED 227 10^3/uL (150-450); RED BLOOD COUNT 4.12 10^6/uL (4.30-6.10); WHITE BLOOD COUNT 6.8 10^3/uL (4.0-10.0)
[2018-06-05 14:10] LABS: ALBUMIN 2.8 GM/DL (3.2-5.2); ALT/SGPT 39 U/L (12-78); BILIRUBIN,TOTAL 0.6 MG/DL (0.2-1.0); BLOOD UREA NITROGEN 23 MG/DL (7-18); CALCIUM LEVEL 8.1 MG/DL (8.8-10.2); CARBON DIOXIDE LEVEL 25 MEQ/L (21-32); CHLORIDE LEVEL 99 MEQ/L (98-107); CREATININE FOR GFR 0.78 MG/DL (0.70-1.30); GLOMERULAR FILTRATION RATE > 60.0 (>42); GLUCOSE, FASTING 101 MG/DL (70-100); POTASSIUM SERUM 4.1 MEQ/L (3.5-5.1); SODIUM LEVEL 133 MEQ/L (136-145)
== END ==
PROVIDERS: ATTEND Nurse Practitioner Adult Health
DX: R10.84 Generalized abdominal pain (principal); R19.7 Diarrhea, unspecified

== ENCOUNTER → 2018-06-05 | Outpatient (CLI) | payer MEDICARE, MEDICAID ==
[~2018-06-05] MED LIST changes: +ISOVUE-370 76% 100ML VIAL (Q9967) As Ordered ONE; +OMEP-218 PO; +SUCR1TA PO
--- NOTE | 2018-06-05 16:01 | REP ---
CT of the abdomen and pelvis with IV contrast, without bowel contrast: Comparison is 12/15/2017. The patient has history of cholecystectomy and small bowel obstruction. The visualized lung bailey are unremarkable. The entire small bowel is dilated containing multiple air-fluid levels to the terminal ileum. There is luminal narrowing without significant bowel wall thickening of the terminal ileum. This suggests terminal ileum stricture. There is no colonic distension. There is no pneumoperitoneum or ascites. The hepatic parenchyma, pancreas and spleen are unremarkable except for calcified granulomas. The adrenals and kidneys are unremarkable except for a simple cyst at the mid/lower pole of the right kidney. Abdominal aorta is unremarkable. There is no retroperitoneal adenopathy. There is no mesenteric adenopathy. Pelvis: There is a right hip arthroplasty in internal fixation of the left hip resulting in significant beam-hardening artifact degrading the images. No definite ascites is identified. The bladder is grossly unremarkable. There is diffuse demineralization. There are grade 1 compression deformities of the L2-L4 vertebral bodies. This is unchanged. Impression: There is significant luminal narrowing of the terminal ileum without significant wall thickening, suggestive of terminal ileum stricture. There is dilatation of the entire small bowel with multiple air-fluid levels, compatible with small bowel obstruction. There is no pneumoperitoneum or ascites. Electronically Signed by Olivier Goodwin MD 06/05/2018 03:52 P
== END ==
LOC: M RAD 14:34
PROVIDERS: ATTEND Nurse Practitioner Adult Health
DX: R10.84 Generalized abdominal pain (principal); R19.7 Diarrhea, unspecified
CPT/HCPCS: 74018; 74177; 80053; 85027; Q9967

== ENCOUNTER → 2018-07-10 | Outpatient (CLI) | payer MEDICARE, MEDICAID ==
[~2018-07-10] MED LIST changes: +BISA5TAB5 PO; +E-Z-PAQUE 96% w/w SUSP 176GM BTL As Ordered ONE; +MILKSUS21 PO; +OMEP-218 PO; +ONDA4TAB5 PO; +SENN1TAB36 PO; +SUCR1TA PO; +ZADI1DRO OU
--- NOTE | 2018-07-10 16:38 | REP ---
Examination Requested: SBFT Reason For Exam: Question partial bowel obstruction Small Bowel Follow Through The procedure was performed by JUAN Gamboa, under the direct supervision of Dr. Herrera. The images were reviewed with Dr. Herrera. The barium was administered and the barium column was followed through the small bowel to the level of the terminal ileum. Small bowel transit time was approximately 105 minutes. During fluoroscopy gentle palpation shows all loops are freely mobile and pliable. There are no fixed or angulated loops. The small bowel mucosal pattern is normal in course and caliber. There is no transition to set suggest a partial small-bowel obstruction. Spot filming of the terminal ileum shows it to be unremarkable. Impression; 1. Unremarkable small bowel follow-through 0.3 minutes of fluoroscopy time was utilized for this procedure. Reviewed by JUAN Olson 07/10/2018 03:55 P Electronically Signed by Dedrick Herrera MD 07/10/2018 04:28 P
== END ==
LOC: M RAD 08:12
PROVIDERS: ATTEND Surgery
DX: Z87.19 Personal history of other diseases of the digestive system (principal)

== ENCOUNTER → 2018-07-29 | Outpatient (REF) | payer MEDICARE, MEDICAID ==
[~2018-07-29] MED LIST changes: -E-Z-PAQUE 96% w/w SUSP 176GM BTL As Ordered ONE
[2018-07-29 11:18] LABS: HEMATOCRIT 37.6 % (42.0-52.0); HEMOGLOBIN 12.9 g/dl (13.5-17.5); MEAN CORPUSCULAR HEMOGLOBIN 34.3 pg (27.0-33.0); MEAN CORPUSCULAR HGB CONC 34.3 g/dl (32.0-36.5); PLATELET COUNT, AUTOMATED 273 10^3/uL (150-450); RED BLOOD COUNT 3.76 10^6/uL (4.30-6.10); WHITE BLOOD COUNT 7.3 10^3/uL (4.0-10.0)
[2018-07-29 12:08] LABS: ALBUMIN 2.9 GM/DL (3.2-5.2); ALT/SGPT 26 U/L (12-78); BILIRUBIN,TOTAL 0.2 MG/DL (0.2-1.0); BLOOD UREA NITROGEN 10 MG/DL (7-18); CALCIUM LEVEL 7.9 MG/DL (8.8-10.2); CARBON DIOXIDE LEVEL 27 MEQ/L (21-32); CHLORIDE LEVEL 95 MEQ/L (98-107); CHOLESTEROL LEVEL 196 MG/DL (<200); CREATININE FOR GFR 0.58 MG/DL (0.70-1.30); GLOMERULAR FILTRATION RATE > 60.0 (>42); GLUCOSE, FASTING 76 MG/DL (70-100); HDL CHOLESTEROL 49 MG/DL (>40); LDL CHOLESTEROL 110 MG/DL (<100); NON-HDL-C 147 MG/DL; PHENYTOIN (DILANTIN) 20.2 UG/ML (10.0-20.0); SODIUM LEVEL 133 MEQ/L (136-145); TOTAL PROTEIN 7.1 GM/DL (6.4-8.2); TRIGLYCERIDES LEVEL 186 MG/DL (<150)
[2018-07-29 12:58] LABS: TOTAL 25(OH) VITAMIN D 68.3 NG/ML (30.0-100.0); VITAMIN B12 LEVEL 834 PG/ML (247-911)
== END ==
PROVIDERS: ATTEND Internal Medicine
DX: R51 Headache (principal); R20.2 Paresthesia of skin; E78.5 Hyperlipidemia, unspecified; Z79.899 Other long term (current) drug therapy

== ENCOUNTER → 2018-08-13 | Outpatient (REF) | payer MEDICARE, MEDICAID ==
[2018-08-13 17:27] LABS: HEMATOCRIT 39.8 % (42.0-52.0); HEMOGLOBIN 13.6 g/dl (13.5-17.5); MEAN CORPUSCULAR HEMOGLOBIN 33.4 pg (27.0-33.0); MEAN CORPUSCULAR HGB CONC 34.2 g/dl (32.0-36.5); MEAN CORPUSCULAR VOLUME 97.8 fl (80.0-96.0); PLATELET COUNT, AUTOMATED 309 10^3/uL (150-450); RED BLOOD COUNT 4.07 10^6/uL (4.30-6.10); WHITE BLOOD COUNT 7.6 10^3/uL (4.0-10.0)
[2018-08-13 18:03] LABS: BLOOD UREA NITROGEN 10 MG/DL (7-18); CALCIUM LEVEL 8.7 MG/DL (8.8-10.2); CARBON DIOXIDE LEVEL 26 MEQ/L (21-32); CHLORIDE LEVEL 99 MEQ/L (98-107); CREATININE FOR GFR 0.73 MG/DL (0.70-1.30); GLOMERULAR FILTRATION RATE > 60.0 (>42); GLUCOSE, FASTING 86 MG/DL (70-100); PHENYTOIN (DILANTIN) 19.7 UG/ML (10.0-20.0); POTASSIUM SERUM 4.2 MEQ/L (3.5-5.1); SODIUM LEVEL 133 MEQ/L (136-145)
== END ==
PROVIDERS: ATTEND Nurse Practitioner Adult Health
DX: H53.9 Unspecified visual disturbance (principal); H81.10 Benign paroxysmal vertigo, unspecified ear

== ENCOUNTER → 2018-08-13 | Outpatient (CLI) | payer MEDICARE, MEDICAID ==
[~2018-08-13] MED LIST changes: +ISOVUE-370 76% 100ML VIAL (Q9967) As Ordered ONE
== END ==
LOC: M RAD 16:57
PROVIDERS: ATTEND Nurse Practitioner Adult Health
DX: H53.9 Unspecified visual disturbance (principal); R51 Headache; H81.10 Benign paroxysmal vertigo, unspecified ear; G80.9 Cerebral palsy, unspecified
CPT/HCPCS: 70470; 80048; 80185; 84443; 85027; Q9967

== ENCOUNTER → 2018-08-20 | Outpatient (REF) | payer MEDICARE, MEDICAID ==
--- NOTE | 2018-08-13 18:21 | REPVR ---
EXAM: CT Head Without and With Contrast EXAM DATE/TIME: 08/13/2018 6:03 PM CLINICAL HISTORY: 73 years old, male; Pain; Additional info: Cerebral palsy TECHNIQUE: Imaging protocol: Axial computed tomography images of the head without and with intravenous contrast. Radiation optimization: All CT scans at this facility use at least one of these dose optimization techniques: automated exposure control; mA and/or kV adjustment per patient size (includes targeted exams where dose is matched to clinical indication); or iterative reconstruction. 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 Findings stable. There is mild to moderate age-related parenchymal volume loss. White matter changes are demonstrated in the subcortical, centrum semiovale and periventricular white matter consistent with small vessel white matter angiopathic gliosis. Ventricles: Normal. No ventriculomegaly. Bones/joints: Unremarkable. No acute fracture. Sinuses: Mild inflammatory changes in the left ethmoid air cells. Occluded right frontal sinus. Mastoid air cells /auditory canals: Visualized mastoid air cells are normal on the right and opacified on the left consistent with left mastoiditis. Soft tissue density left and right external auditory canal represent cerumen. Soft tissues: Unremarkable. IMPRESSION: 1. 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 Findings stable. 2. There is mild to moderate age-related parenchymal volume loss. White matter changes are demonstrated in the subcortical, centrum semiovale and periventricular white matter consistent with small vessel white matter angiopathic gliosis. Electronically signed by: Jonathan Kwok On 08/13/2018 18:21:08 PM
[~2018-08-20] MED LIST changes: +CYAN100049 PO; -ISOVUE-370 76% 100ML VIAL (Q9967) As Ordered ONE; -VITA10002 PO
[2018-08-20 10:01] LABS: HEMATOCRIT 38.9 % (42.0-52.0); HEMOGLOBIN 13.2 g/dl (13.5-17.5); MEAN CORPUSCULAR HEMOGLOBIN 34.3 pg (27.0-33.0); MEAN CORPUSCULAR HGB CONC 33.9 g/dl (32.0-36.5); PLATELET COUNT, AUTOMATED 269 10^3/uL (150-450); RED BLOOD COUNT 3.85 10^6/uL (4.30-6.10); WHITE BLOOD COUNT 7.5 10^3/uL (4.0-10.0)
[2018-08-20 10:33] LABS: ALBUMIN 3.1 GM/DL (3.2-5.2); ALT/SGPT 31 U/L (12-78); BILIRUBIN,TOTAL 0.3 MG/DL (0.2-1.0); BLOOD UREA NITROGEN 13 MG/DL (7-18); CALCIUM LEVEL 8.8 MG/DL (8.8-10.2); CARBON DIOXIDE LEVEL 29 MEQ/L (21-32); CHLORIDE LEVEL 100 MEQ/L (98-107); CHOLESTEROL LEVEL 170 MG/DL (<200); CHOLESTEROL RISK RATIO 3.333 (<5); CREATININE FOR GFR 0.74 MG/DL (0.70-1.30); GLOMERULAR FILTRATION RATE > 60.0 (>42); GLUCOSE, FASTING 106 MG/DL (70-100); HDL CHOLESTEROL 51 MG/DL (>40); LDL CHOLESTEROL 80 MG/DL (<100); NON-HDL-C 119 MG/DL; POTASSIUM SERUM 4.2 MEQ/L (3.5-5.1); SODIUM LEVEL 136 MEQ/L (136-145); TOTAL PROTEIN 7.4 GM/DL (6.4-8.2); TRIGLYCERIDES LEVEL 193 MG/DL (<150)
[2018-08-20 10:40] LABS: VITAMIN B12 LEVEL 976 PG/ML (247-911)
[2018-08-22 08:06] LABS: VITAMIN D 1,25 DIHYDROXY 28.3 pg/mL (19.9-79.3)
== END ==
PROVIDERS: ATTEND Nurse Practitioner Adult Health
DX: G80.9 Cerebral palsy, unspecified (principal)

== ENCOUNTER → 2018-09-11 | Outpatient (CLI) | payer MEDICARE, MEDICAID ==
--- NOTE | 2018-09-11 15:59 | REP ---
Internal auditory canal CT study without contrast: History: Mastoiditis left ear. Comparison is made with CT study August 13, 2018. There is a comparison maxillofacial CT study from April 14, [address] findings: On the right the middle ear cavity is normally aerated. External auditory and internal auditory canals on the right are unremarkable. Cochlear and vestibular apparatus appear intact. The right mastoid sinuses are aerated and clear. No bony destructive lesion is seen. Middle ear ossicles are unremarkable. On the left, they is evidence of chronic mastoid sinusitis with thickening of the mastoid septations. There is essentially no normal mastoid sinus aeration. The internal auditory canal is unremarkable. Cochlear and vestibular apparatus appear intact. However, there is an extensive destructive process in the petrous bone involving the medial aspect of the external auditory canal and the superiorly adjacent mastoid sinus. The superior portion of the middle ear cavity contains abnormal soft tissue density and there is destruction of the scutum and multiple mastoid septations. The medial centimeter of the external auditory canal is occluded by soft tissue density and there appears to be some degree of circumferential erosion of the bony wall of the external auditory canal. The middle ear cavity is aerated medial to the tympanic membrane inferiorly. The middle ear ossicles appear largely eroded. Overall the erosive soft tissue density measures 18 mm in craniocaudal by 12 mm medial to lateral by 15 mm anterior to posterior. Soft tissue window settings show no evidence of preauricular or periauricular adenopathy. No abnormal fluid collection is seen. The visualized intracranial structures are unremarkable. Impression: Extensive erosive process in the left mastoid bone involving mastoid sinus, the medial aspect of the external auditory canal, and the superior aspect of the middle ear cavity on the left with erosion of the scutum, many mastoid sinus air cells, and the left middle ear ossicles. Possibilities include advanced cholesteatoma, malignant otitis externa, and squamous cell carcinoma. Electronically Signed by Dedrick Herrera MD 09/11/2018 04:26 P
== END ==
LOC: M RAD 12:52
PROVIDERS: ATTEND Otolaryngology
DX: H70.92 Unspecified mastoiditis, left ear (principal)

== ENCOUNTER → 2018-09-30 | Outpatient (CLI) | payer MEDICARE, MEDICAID ==
--- NOTE | 2018-09-30 10:42 | REP ---
MR BRAIN WITHOUT CONTRAST: HISTORY: Hearing difficulty. COMPARISON: 06/25/2006. An area of increased signal intensity on T2-weighted images is present in the left temporal and parietal lobes. There is dilatation of the overlying cortical sulci and body of the left lateral ventricles. This represents an old infarction. Small areas of increased signal intensity on T2-weighted images and the left cerebellum. These represent old lacunar infarctions. There is no intraparenchymal hemorrhage, acute infarct, mass or midline shift. The ventricular system and cortical sulci, as well as subarachnoid space in the posterior fossa are dilated consistent with mild volume loss. There is no extracerebral collection. Mucosal thickening is present in the ethmoid, frontal, and left maxillary sinuses. Increased signal intensity on T2-weighted images is present in the left middle ear cavity and mastoid air cells. This may represent acute or chronic otitis or mucosal thickening. IMPRESSION: 1. 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 2. 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 3. Mild volume loss. 4. There is increased signal intensity in the left middle ear cavity and left mastoid air cells. This may represent acute or chronic otitis or possibly mucosal thickening. Electronically Signed by James Palma MD 09/30/2018 11:20 A
== END ==
LOC: M RAD 08:00
PROVIDERS: ATTEND Otolaryngology
DX: H70.92 Unspecified mastoiditis, left ear (principal)

== ENCOUNTER → 2018-11-19 | Outpatient (REF) | payer MEDICARE, MEDICAID ==
[~2018-11-19] MED LIST changes: -ARTI99.0 OU; +ARTIDRO2 OU
[2018-11-19 11:03] LABS: HEMATOCRIT 37.1 % (42.0-52.0); HEMOGLOBIN 12.7 g/dl (13.5-17.5); MEAN CORPUSCULAR HEMOGLOBIN 33.4 pg (27.0-33.0); MEAN CORPUSCULAR HGB CONC 34.2 g/dl (32.0-36.5); MEAN CORPUSCULAR VOLUME 97.6 fl (80.0-96.0); PLATELET COUNT, AUTOMATED 261 10^3/uL (150-450); WHITE BLOOD COUNT 8.5 10^3/uL (4.0-10.0)
[2018-11-19 11:25] LABS: ALBUMIN 2.9 GM/DL (3.2-5.2); ALT/SGPT 20 U/L (12-78); BILIRUBIN,TOTAL 0.3 MG/DL (0.2-1.0); BLOOD UREA NITROGEN 14 MG/DL (7-18); CALCIUM LEVEL 8.8 MG/DL (8.8-10.2); CARBON DIOXIDE LEVEL 27 MEQ/L (21-32); CHLORIDE LEVEL 102 MEQ/L (98-107); CREATININE FOR GFR 0.84 MG/DL (0.70-1.30); GLOMERULAR FILTRATION RATE > 60.0 (>42); GLUCOSE, FASTING 121 MG/DL (70-100); POTASSIUM SERUM 4.1 MEQ/L (3.5-5.1); SODIUM LEVEL 138 MEQ/L (136-145); TOTAL PROTEIN 6.9 GM/DL (6.4-8.2)
== END ==
PROVIDERS: ATTEND Nurse Practitioner Adult Health
DX: Z79.899 Other long term (current) drug therapy (principal)

== ENCOUNTER → 2018-11-26 | Outpatient (REF) | payer MEDICARE, MEDICAID ==
[2018-11-26 10:31] LABS: HEMOGLOBIN A1c 5.3 %
== END ==
PROVIDERS: ATTEND Internal Medicine
DX: R56.9 Unspecified convulsions (principal)

== ENCOUNTER → 2018-11-26 | Outpatient (REF) | payer MEDICARE, MEDICAID ==
[2018-11-26 15:43] LABS: ALBUMIN 2.9 GM/DL (3.2-5.2); ALT/SGPT 19 U/L (12-78); BILIRUBIN,TOTAL 0.3 MG/DL (0.2-1.0); BLOOD UREA NITROGEN 11 MG/DL (7-18); CALCIUM LEVEL 8.5 MG/DL (8.8-10.2); CARBON DIOXIDE LEVEL 26 MEQ/L (21-32); CHLORIDE LEVEL 95 MEQ/L (98-107); CREATININE FOR GFR 0.77 MG/DL (0.70-1.30); GLOMERULAR FILTRATION RATE > 60.0 (>42); GLUCOSE, FASTING 92 MG/DL (70-100); POTASSIUM SERUM 4.5 MEQ/L (3.5-5.1); SODIUM LEVEL 130 MEQ/L (136-145); TOTAL PROTEIN 7.3 GM/DL (6.4-8.2)
--- NOTE | 2018-11-26 17:36 | REP ---
Portable chest x-ray: Semi-erect AP view. History: Fever and cough. Comparison study: June 05, 2018. Findings: There is a significant thoracolumbar levoconvex curvature and the patient is leaned quite a bit to the right and rotated somewhat to the right. There are increased markings above the minor fissure on the right consistent with atelectasis and/or infiltrate. There is also a granulomatous calcification in the right upper lobe. No definite left lung infiltrate is seen. There is a skin fold superimposed on the mediastinum. There is an orthopedic screw plate fixation device in the proximal humerus on the left. Impression: Increased markings right upper lobe consistent with atelectasis and/or infiltrate. Right upper lobe granuloma. Scoliosis. Electronically Signed by Dedrick Herrera MD 11/27/2018 07:44 A
[2018-11-26 17:54] LABS: HEMATOCRIT 38.5 % (42.0-52.0); HEMOGLOBIN 13.2 g/dl (13.5-17.5); MEAN CORPUSCULAR HEMOGLOBIN 33.6 pg (27.0-33.0); MEAN CORPUSCULAR HGB CONC 34.3 g/dl (32.0-36.5); PLATELET COUNT, AUTOMATED 233 10^3/uL (150-450); RED BLOOD COUNT 3.93 10^6/uL (4.30-6.10); WHITE BLOOD COUNT 9.8 10^3/uL (4.0-10.0)
== END ==
PROVIDERS: ATTEND Internal Medicine
DX: R05 Cough (principal); R50.9 Fever, unspecified; Z79.899 Other long term (current) drug therapy

== ENCOUNTER → 2018-11-28 | Outpatient (REF) | payer MEDICARE, MEDICAID ==
[~2018-11-28] MED LIST changes: +BISA5TAB13 PO; -BISA5TAB5 PO; +ONDA-83 PO; -ONDA4TAB5 PO; -SIMV20TA2 PO; +SIMV20TA22 PO
[2018-11-28 11:55] LABS: HEMATOCRIT 39.2 % (42.0-52.0); HEMOGLOBIN 13.4 g/dl (13.5-17.5); MEAN CORPUSCULAR HEMOGLOBIN 33.4 pg (27.0-33.0); MEAN CORPUSCULAR HGB CONC 34.2 g/dl (32.0-36.5); MEAN CORPUSCULAR VOLUME 97.8 fl (80.0-96.0); PLATELET COUNT, AUTOMATED 272 10^3/uL (150-450); RED BLOOD COUNT 4.01 10^6/uL (4.30-6.10); WHITE BLOOD COUNT 7.6 10^3/uL (4.0-10.0)
[2018-11-28 12:38] LABS: BLOOD UREA NITROGEN 12 MG/DL (7-18); CALCIUM LEVEL 8.4 MG/DL (8.8-10.2); CARBON DIOXIDE LEVEL 27 MEQ/L (21-32); CHLORIDE LEVEL 97 MEQ/L (98-107); CREATININE FOR GFR 0.72 MG/DL (0.70-1.30); GLOMERULAR FILTRATION RATE > 60.0 (>42); GLUCOSE, FASTING 115 MG/DL (70-100); POTASSIUM SERUM 4.5 MEQ/L (3.5-5.1); SODIUM LEVEL 132 MEQ/L (136-145)
== END ==
PROVIDERS: ATTEND Internal Medicine
DX: J18.8 Other pneumonia, unspecified organism (principal)

== ENCOUNTER → 2018-12-03 | Outpatient (REF) | payer MEDICARE, MEDICAID ==
[~2018-12-03] MED LIST changes: -BISA5TAB13 PO; +BISA5TAB5 PO; -ONDA-83 PO; +ONDA4TAB5 PO; +SIMV20TA2 PO; -SIMV20TA22 PO
[2018-12-03 12:00] LABS: BASO # 0.1 10^3/uL (0.0-0.2); BASO % 0.8 % (0.0-1.0); EOS # 0.3 10^3/uL (0.0-0.5); EOS % 3.6 % (0.0-3.0); HEMATOCRIT 36.2 % (42.0-52.0); HEMOGLOBIN 12.4 g/dl (13.5-17.5); LYMPH # 1.7 10^3/uL (1.5-5.0); LYMPH % 18.9 % (24.0-44.0); MEAN CORPUSCULAR HEMOGLOBIN 33.5 pg (27.0-33.0); MEAN CORPUSCULAR HGB CONC 34.3 g/dl (32.0-36.5); MEAN CORPUSCULAR VOLUME 97.8 fl (80.0-96.0); MONO # 0.8 10^3/uL (0.0-0.8); MONO % 8.2 % (0.0-5.0); NEUTROPHILS # 6.3 10^3/uL (1.5-8.5); NEUTROPHILS % 68.2 % (36.0-66.0); PLATELET COUNT, AUTOMATED 264 10^3/uL (150-450); WHITE BLOOD COUNT 9.2 10^3/uL (4.0-10.0)
[2018-12-03 12:24] LABS: BLOOD UREA NITROGEN 12 MG/DL (7-18); CALCIUM LEVEL 8.2 MG/DL (8.8-10.2); CARBON DIOXIDE LEVEL 25 MEQ/L (21-32); CHLORIDE LEVEL 102 MEQ/L (98-107); CREATININE FOR GFR 0.66 MG/DL (0.70-1.30); GLOMERULAR FILTRATION RATE > 60.0 (>42); GLUCOSE, FASTING 98 MG/DL (70-100); POTASSIUM SERUM 3.6 MEQ/L (3.5-5.1); SODIUM LEVEL 137 MEQ/L (136-145)
[2018-12-03 12:30] LABS: INFLUENZA A AMPLIFICATION NEGATIVE (NEGATIVE); INFLUENZA B AMPLIFICATION NEGATIVE (NEGATIVE)
--- NOTE | 2018-12-03 16:24 | REP ---
Portable chest, 03:37 p.m., single AP view with the patient upright: The the patient is rotated. Comparison is 11/26/2018. The visualized lung bailey are clear. A large portion of the right lung is obscured by the heart because of patient rotation. Cardiac size appears enlarged, unchanged. No pleural effusions are identified. There is internal fixation of the proximal left humerus, unchanged. Pressure: No acute cardiopulmonary findings. Patient rotation and cardiomegaly obscure portions of the lung bailey. Electronically Signed by Olivier Goodwin MD 12/03/2018 04:16 P
== END ==
PROVIDERS: ATTEND Internal Medicine
DX: R50.9 Fever, unspecified (principal)

== ENCOUNTER → 2018-12-17 | Outpatient (REF) | payer MEDICARE, MEDICAID | PROVIDERS: ATTEND Internal Medicine | DX: G40.909 Epilepsy, unspecified, not intractable, without status epilepticus (principal) ==

== ENCOUNTER → 2018-12-17 | Outpatient (CLI) | payer MEDICARE, MEDICAID ==
--- NOTE | 2018-12-17 17:33 | REP ---
Examination Requested: Cookie Swallow Reason For Exam: Dysphasia The procedure was performed by JUAN Gamboa, under the direct supervision of Dr. Teran. The procedure was performed with Naya Arellano from speech pathology present. 5 ml aliquots of thin, pudding, mixed fruit, soft food, hard food and pill consistency barium was administered. No penetration or aspiration was visualized throughout the course of this exam. The detailed report of this examination will be provided by speech pathology. 1.0 minutes of fluoroscopy time was utilized for this procedure. Reviewed by JUAN Olson 12/17/2018 03:39 P Electronically Signed by Olivier Teran MD 12/17/2018 05:24 P
== END ==
LOC: M ST 10:46
PROVIDERS: ATTEND Nurse Practitioner Adult Health
DX: R13.10 Dysphagia, unspecified (principal); G40.909 Epilepsy, unspecified, not intractable, without status epilepticus

== ENCOUNTER → 2019-01-02 | Outpatient (REF) | payer MEDICARE, MEDICAID ==
--- NOTE | 2019-01-02 17:09 | REPPI ---
Single view chest: 01/02/2019. Indication: Dyspnea. Comparison: 12/03/2018. Findings: Patient rotation is redemonstrated. The cardiomediastinal silhouette is unchanged. No definite air space consolidation is detected. There is no evidence of pleural effusion or pneumothorax. Postoperative sequelae of the proximal left humerus are unchanged. Impression: No definite acute cardiopulmonary process. Electronically Signed by Chu Gold DO 01/02/2019 12:50 P
== END ==
PROVIDERS: ATTEND Nurse Practitioner Adult Health
DX: R06.02 Shortness of breath (principal); R05 Cough

== ENCOUNTER → 2019-01-21 | Outpatient (REF) | payer MEDICARE, MEDICAID ==
[~2019-01-21] MED LIST changes: -SIMV20TA2 PO; +SIMV20TA22 PO
== END ==
PROVIDERS: ATTEND Internal Medicine
DX: G40.909 Epilepsy, unspecified, not intractable, without status epilepticus (principal)

== ENCOUNTER → 2019-02-17 | Outpatient (REF) | payer MEDICARE, MEDICAID ==
[~2019-02-17] MED LIST changes: +BISA5TAB13 PO; -BISA5TAB5 PO
[2019-02-17 12:05] LABS: HEMATOCRIT 37.1 % (42.0-52.0); HEMOGLOBIN 12.5 g/dl (13.5-17.5); MEAN CORPUSCULAR HGB CONC 33.7 g/dl (32.0-36.5); MEAN CORPUSCULAR VOLUME 97.9 fl (80.0-96.0); PLATELET COUNT, AUTOMATED 269 10^3/uL (150-450); RED BLOOD COUNT 3.79 10^6/uL (4.30-6.10); WHITE BLOOD COUNT 7.7 10^3/uL (4.0-10.0)
[2019-02-17 12:43] LABS: BLOOD UREA NITROGEN 14 MG/DL (7-18); CALCIUM LEVEL 8.4 MG/DL (8.8-10.2); CARBON DIOXIDE LEVEL 22 MEQ/L (21-32); CHLORIDE LEVEL 103 MEQ/L (98-107); CHOLESTEROL LEVEL 181 MG/DL (<200); CREATININE FOR GFR 0.74 MG/DL (0.70-1.30); GLOMERULAR FILTRATION RATE > 60.0 (>42); GLUCOSE, FASTING 113 MG/DL (70-100); HDL CHOLESTEROL 48 MG/DL (>40); LDL CHOLESTEROL 104 MG/DL (<100); NON-HDL-C 133 MG/DL; POTASSIUM SERUM 4.6 MEQ/L (3.5-5.1); SODIUM LEVEL 134 MEQ/L (136-145); TRIGLYCERIDES LEVEL 146 MG/DL (<150)
[2019-02-17 12:44] LABS: VITAMIN B12 LEVEL 810 PG/ML (247-911)
[2019-02-20 14:06] LABS: VITAMIN D 1,25 DIHYDROXY 27.2 pg/mL (19.9-79.3)
== END ==
PROVIDERS: ATTEND Internal Medicine
DX: G40.909 Epilepsy, unspecified, not intractable, without status epilepticus (principal); Z79.899 Other long term (current) drug therapy; Z79.51 Long term (current) use of inhaled steroids

== ENCOUNTER → 2019-03-28 | Outpatient (REF) | payer MEDICARE, MEDICAID ==
[~2019-03-28] MED LIST changes: +ONDA-83 PO; -ONDA4TAB5 PO
== END ==
PROVIDERS: ATTEND Internal Medicine
DX: G40.909 Epilepsy, unspecified, not intractable, without status epilepticus (principal)

== ENCOUNTER → 2019-04-07 | Outpatient (REF) | payer MEDICARE, MEDICAID ==
[~2019-04-07] MED LIST changes: -ARTIDRO2 OU; +POLYOPD OU
== END ==
PROVIDERS: ATTEND Internal Medicine
DX: R09.81 Nasal congestion (principal)

== ENCOUNTER → 2019-04-08 | Outpatient (REF) | payer MEDICARE, MEDICAID ==
[2019-04-08 19:02] LABS: HEMATOCRIT 40.8 % (42.0-52.0); HEMOGLOBIN 13.8 g/dl (13.5-17.5); MEAN CORPUSCULAR HEMOGLOBIN 32.6 pg (27.0-33.0); MEAN CORPUSCULAR HGB CONC 33.8 g/dl (32.0-36.5); MEAN CORPUSCULAR VOLUME 96.5 fl (80.0-96.0); PLATELET COUNT, AUTOMATED 268 10^3/uL (150-450); RED BLOOD COUNT 4.23 10^6/uL (4.30-6.10); WHITE BLOOD COUNT 7.8 10^3/uL (4.0-10.0)
[2019-04-08 19:32] LABS: ALBUMIN 3.2 GM/DL (3.2-5.2); ALT/SGPT 25 U/L (12-78); BILIRUBIN,TOTAL 0.3 MG/DL (0.2-1.0); BLOOD UREA NITROGEN 12 MG/DL (7-18); CALCIUM LEVEL 8.1 MG/DL (8.8-10.2); CARBON DIOXIDE LEVEL 22 MEQ/L (21-32); CHLORIDE LEVEL 98 MEQ/L (98-107); CREATININE FOR GFR 0.66 MG/DL (0.70-1.30); GLOMERULAR FILTRATION RATE > 60.0 (>42); GLUCOSE, FASTING 102 MG/DL (70-100); SODIUM LEVEL 131 MEQ/L (136-145); TOTAL PROTEIN 7.6 GM/DL (6.4-8.2)
== END ==
PROVIDERS: ATTEND Internal Medicine
DX: R51 Headache (principal)

== ENCOUNTER → 2019-04-23 | Outpatient (REF) | payer MEDICARE, MEDICAID | PROVIDERS: ATTEND Internal Medicine | DX: G40.909 Epilepsy, unspecified, not intractable, without status epilepticus (principal) ==

== ENCOUNTER → 2019-04-25 | Outpatient (CLI) | payer MEDICARE, MEDICAID ==
[~2019-04-25] MED LIST changes: +ISOVUE-370 76% 100ML VIAL (Q9967) As Ordered ONE
--- NOTE | 2019-04-25 15:25 | REPVR ---
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 Radiation optimization: All CT scans at this facility use at least one of these dose optimization techniques: automated exposure control; mA and/or kV adjustment per patient size (includes targeted exams where dose is matched to clinical indication); or iterative reconstruction. Contrast material: ISOVUE 370; Contrast volume: 75 ml; Contrast route: IV; COMPARISON: CT Head W/O FOLL BY WITH CONTR 08/13/2018 5:55 PM FINDINGS: Brain: Comparison to the previous head CT shows no interval change in the brain. 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 No significant transtentorial downward herniation of the brain. No acute intracerebral bleed or acute infarct. [place] Stroke Program Early CT Score (ASPECTS score) = 10. Ventricles: Normal. No ventriculomegaly. Bones/joints: Unremarkable. No acute fracture. Sinuses: Visualized sinuses are unremarkable. No fluid levels. Mastoid air cells: Comparison to the previous head CT exam from 08/13/2018 shows interval complete resolution of the previously seen left-sided mastoiditis. The left middle ear tympanic cavity and the small area of mastoid air cells present on the left appear well aerated. There is probable congenital underpneumatization of the left mastoid air cells. Soft tissues: Unremarkable. IMPRESSION: 1. Comparison to the previous head CT exam from 08/13/2018 shows interval complete resolution of the previously seen left-sided mastoiditis. The left middle ear tympanic cavity and the small area of mastoid air cells present on the left appear well aerated. There is probable congenital underpneumatization of the left mastoid air cells. 2. Comparison to the previous head CT shows no interval change in the brain. 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 No significant transtentorial downward herniation of the brain. No acute intracerebral bleed or acute infarct. 3. [place] Stroke Program Early CT Score (ASPECTS score) = 10. Electronically signed by: John Arreguin On 04/25/2019 15:25:37 PM
== END ==
LOC: M RAD 08:40
PROVIDERS: ATTEND Nurse Practitioner Adult Health
DX: R51 Headache (principal); Z86.69 Personal history of other diseases of the nervous system and sense organs
CPT/HCPCS: 70470; Q9967

== ENCOUNTER → 2019-05-21 | Outpatient (REF) | payer MEDICARE, MEDICAID ==
[~2019-05-21] MED LIST changes: +ACET160L16 PO; -ACET1LIQ PO; -ISOVUE-370 76% 100ML VIAL (Q9967) As Ordered ONE
[2019-05-21 09:53] LABS: HEMATOCRIT 40.5 % (42.0-52.0); HEMOGLOBIN 13.7 g/dl (13.5-17.5); MEAN CORPUSCULAR HEMOGLOBIN 33.3 pg (27.0-33.0); MEAN CORPUSCULAR HGB CONC 33.8 g/dl (32.0-36.5); MEAN CORPUSCULAR VOLUME 98.5 fl (80.0-96.0); PLATELET COUNT, AUTOMATED 269 10^3/uL (150-450); RED BLOOD COUNT 4.11 10^6/uL (4.30-6.10); WHITE BLOOD COUNT 8.5 10^3/uL (4.0-10.0)
[2019-05-21 10:20] LABS: ALBUMIN 2.9 GM/DL (3.2-5.2); ALT/SGPT 22 U/L (12-78); BILIRUBIN,TOTAL 0.2 MG/DL (0.2-1.0); BLOOD UREA NITROGEN 13 MG/DL (7-18); CALCIUM LEVEL 8.4 MG/DL (8.8-10.2); CARBON DIOXIDE LEVEL 25 MEQ/L (21-32); CHLORIDE LEVEL 103 MEQ/L (98-107); GLOMERULAR FILTRATION RATE > 60.0 (>42); GLUCOSE, FASTING 129 MG/DL (70-100); PHENYTOIN (DILANTIN) 17.7 UG/ML (10.0-20.0); POTASSIUM SERUM 4.4 MEQ/L (3.5-5.1); SODIUM LEVEL 136 MEQ/L (136-145); TOTAL PROTEIN 7.2 GM/DL (6.4-8.2)
== END ==
PROVIDERS: ATTEND Internal Medicine
DX: Z79.899 Other long term (current) drug therapy (principal)

== ENCOUNTER → 2019-06-23 | Outpatient (REF) | payer MEDICARE, MEDICAID | PROVIDERS: ATTEND Internal Medicine | DX: G40.909 Epilepsy, unspecified, not intractable, without status epilepticus (principal) ==

== ENCOUNTER → 2019-07-14 | Outpatient (REF) | PROVIDERS: ATTEND Internal Medicine | DX: Z03.818 Encounter for observation for suspected exposure to other biological agents ruled out (principal) ==

== ENCOUNTER → 2019-07-22 | Outpatient (REF) | payer MEDICARE, MEDICAID | PROVIDERS: ATTEND Internal Medicine | DX: G40.909 Epilepsy, unspecified, not intractable, without status epilepticus (principal) ==

== ENCOUNTER → 2019-08-19 | Outpatient (REF) | payer MEDICARE, MEDICAID ==
[2019-08-19 09:16] LABS: HEMATOCRIT 38.6 % (42.0-52.0); HEMOGLOBIN 13.2 g/dl (13.5-17.5); MEAN CORPUSCULAR HEMOGLOBIN 33.8 pg (27.0-33.0); MEAN CORPUSCULAR HGB CONC 34.2 g/dl (32.0-36.5); MEAN CORPUSCULAR VOLUME 98.7 fl (80.0-96.0); PLATELET COUNT, AUTOMATED 261 10^3/uL (150-450); RED BLOOD COUNT 3.91 10^6/uL (4.30-6.10); WHITE BLOOD COUNT 7.5 10^3/uL (4.0-10.0)
[2019-08-19 09:40] LABS: ALBUMIN 2.8 GM/DL (3.2-5.2); ALT/SGPT 23 U/L (12-78); BILIRUBIN,TOTAL 0.3 MG/DL (0.2-1.0); BLOOD UREA NITROGEN 10 MG/DL (7-18); CALCIUM LEVEL 8.5 MG/DL (8.8-10.2); CARBON DIOXIDE LEVEL 25 MEQ/L (21-32); CHLORIDE LEVEL 101 MEQ/L (98-107); CHOLESTEROL LEVEL 174 MG/DL (<200); CHOLESTEROL RISK RATIO 3.866 (<5); CREATININE FOR GFR 0.65 MG/DL (0.70-1.30); GLOMERULAR FILTRATION RATE > 60.0 (>42); GLUCOSE, FASTING 108 MG/DL (70-100); HDL CHOLESTEROL 45 MG/DL (>40); LDL CHOLESTEROL 99 MG/DL (<100); NON-HDL-C 129 MG/DL; PHENYTOIN (DILANTIN) 17.3 UG/ML (10.0-20.0); SODIUM LEVEL 135 MEQ/L (136-145); TOTAL PROTEIN 6.8 GM/DL (6.4-8.2); TRIGLYCERIDES LEVEL 150 MG/DL (<150)
[2019-08-19 14:17] LABS: VITAMIN B12 LEVEL > 2000 PG/ML (247-911)
== END ==
PROVIDERS: ATTEND Internal Medicine
DX: G40.909 Epilepsy, unspecified, not intractable, without status epilepticus (principal); Z79.899 Other long term (current) drug therapy

== ENCOUNTER → 2019-09-25 | Outpatient (REF) | PROVIDERS: ATTEND Physician Assistant | DX: Z79.899 Other long term (current) drug therapy (principal) ==

== ENCOUNTER → 2019-11-26 | Outpatient (REF) | payer MEDICARE, MEDICAID ==
[2019-11-26 10:42] LABS: HEMATOCRIT 40.2 % (42.0-52.0); HEMOGLOBIN 13.6 g/dl (13.5-17.5); MEAN CORPUSCULAR HEMOGLOBIN 33.4 pg (27.0-33.0); MEAN CORPUSCULAR HGB CONC 33.8 g/dl (32.0-36.5); MEAN CORPUSCULAR VOLUME 98.8 fl (80.0-96.0); PLATELET COUNT, AUTOMATED 273 10^3/uL (150-450); RED BLOOD COUNT 4.07 10^6/uL (4.30-6.10); WHITE BLOOD COUNT 8.3 10^3/uL (4.0-10.0)
[2019-11-26 11:11] LABS: ALT/SGPT 23 U/L (12-78); BILIRUBIN,TOTAL 0.3 MG/DL (0.2-1.0); BLOOD UREA NITROGEN 13 MG/DL (7-18); CALCIUM LEVEL 8.4 MG/DL (8.8-10.2); CARBON DIOXIDE LEVEL 23 MEQ/L (21-32); CHLORIDE LEVEL 103 MEQ/L (98-107); CREATININE FOR GFR 0.69 MG/DL (0.70-1.30); GLOMERULAR FILTRATION RATE > 60.0 (>42); GLUCOSE, FASTING 72 MG/DL (70-100); PHENYTOIN (DILANTIN) 16.5 UG/ML (10.0-20.0); POTASSIUM SERUM 4.3 MEQ/L (3.5-5.1); SODIUM LEVEL 135 MEQ/L (136-145)
--- NOTE | 2019-12-03 09:50 | REPPI ---
LEFT ANKLE TWO VIEWS HISTORY: Pain. TECHNIQUE: Two AP and lateral portable views of the left ankle are performed. FINDINGS: I see no evidence of fracture or dislocation. The ankle mortise appears anatomic. The osseous structures appear osteopenic. Otherwise, no significant finding is seen. IMPRESSION: No acute findings. Osteopenia. MTDD
--- NOTE | 2019-12-03 09:51 | REPPI ---
LEFT FOOT 2-VIEWS HISTORY: Pain. TECHNIQUE: Two portable views left foot performed in the AP and lateral projection. FINDINGS: No acute fracture or dislocation is seen. There is diffuse osteopenia. There is moderate narrowing at the first metatarsophalangeal joint. Old healed fractures noted of the shaft of the fifth metatarsal. IMPRESSION: No acute findings. Diffuse osteopenia. Degenerative changes first metatarsophalangeal joint with moderate joint space narrowing. MTDD
== END ==
PROVIDERS: ATTEND Internal Medicine
DX: G40.909 Epilepsy, unspecified, not intractable, without status epilepticus (principal); M79.672 Pain in left foot; M85.872 Other specified disorders of bone density and structure, left ankle and foot

== ENCOUNTER → 2019-12-19 | Outpatient (CLI) | payer MEDICARE, MEDICAID ==
--- NOTE | 2019-12-19 14:20 | REP ---
INDICATION: LT FOOT PAIN SWELLING. COMPARISON: Radiographs 11/26/2019. TECHNIQUE: Multiple sequences obtained in the axial, coronal and sagittal planes. FINDINGS: There is diffuse severe muscular atrophy. The Achilles, anterior tibial, posterior tibial, flexor hallucis longus, flexor digitorum longus and peroneal tendons all appear intact without evidence of tenosynovitis. The anterior and posterior talofibular, calcaneofibular and deltoid ligaments appear intact. Plantar tendon is intact. There is no evidence of plantar fasciitis. There is normal amount of joint fluid. No ganglion cyst is seen. Tibiotalar joint appears unremarkable. There is no osteochondral defect. There is mild diffuse ill-defined superficial soft tissue edema at the ankle. There is mild ill-defined marrow edema in the anterior calcaneus which is nonspecific. IMPRESSION: Diffuse severe muscular atrophy. Non-specific mild marrow edema anteriorly in the calcaneus may be secondary to arthritic change at the calcaneocuboid joint. Mild superficial diffuse soft tissue edema. <Electronically signed by Olivier Teran > 12/19/19 [id number]
--- NOTE | 2019-12-19 14:29 | REP ---
INDICATION: LT FOOT PAIN SWELLING. COMPARISON: None. TECHNIQUE: Multiple sequences obtained in the axial, coronal and sagittal planes. FINDINGS: There is mild ill-defined marrow edema in the anterior calcaneus which is nonspecific. Otherwise normal bone marrow signal is seen diffusely throughout the osseous structures of the foot. There is severe muscular atrophy. No tendinous abnormality is seen. There is no tenosynovitis. There is no ganglion cyst or joint effusion. Hammertoe deformities are noted diffusely. There is moderate valgus angulation at the interphalangeal joint of the 1st toe. There is mild diffuse superficial subcutaneous soft tissue edema. IMPRESSION: Mild ill-defined marrow edema in the anterior calcaneus is nonspecific, may be related to adjacent arthritic changes at the calcaneocuboid joint. Diffuse severe muscular atrophy. Hammertoe deformities diffusely. Moderate valgus angulation at the interphalangeal joint of the 1st toe. Mild diffuse superficial subcutaneous soft tissue edema. <Electronically signed by Olivier Teran > 12/19/19 [id number]
== END ==
LOC: M RAD 12:38
PROVIDERS: ATTEND Nurse Practitioner Adult Health
DX: R22.42 Localized swelling, mass and lump, left lower limb (principal); M79.672 Pain in left foot

== ENCOUNTER → 2019-12-23 | Outpatient (REF) | payer MEDICARE, MEDICAID | PROVIDERS: ATTEND Internal Medicine | DX: G40.909 Epilepsy, unspecified, not intractable, without status epilepticus (principal); Z79.899 Other long term (current) drug therapy ==

== ENCOUNTER → 2020-01-08 | Outpatient (REF) | PROVIDERS: ATTEND Internal Medicine | DX: Z20.828 Contact with and (suspected) exposure to other viral communicable diseases (principal) ==

== ENCOUNTER → 2020-01-15 | Outpatient (REF) | payer MEDICARE, MEDICAID ==
[~2020-01-15] MED LIST changes: -BISA5TAB13 PO; +BISA5TAB15 PO
== END ==
LOC: EDSTATUS 02-23 12:39
PROVIDERS: ATTEND Internal Medicine
DX: Z20.828 Contact with and (suspected) exposure to other viral communicable diseases (principal)

== ENCOUNTER → 2020-01-20 | Outpatient (REF) | payer MEDICARE, MEDICAID ==
[~2020-01-20] MED LIST changes: +BISA5TAB13 PO; -BISA5TAB15 PO
== END ==
PROVIDERS: ATTEND Internal Medicine
DX: G40.909 Epilepsy, unspecified, not intractable, without status epilepticus (principal); Z79.899 Other long term (current) drug therapy

== ENCOUNTER → 2020-01-21 | Outpatient (REF) | payer MEDICARE, MEDICAID ==
[~2020-01-21] MED LIST changes: -BISA5TAB13 PO; +BISA5TAB15 PO
== END ==
PROVIDERS: ATTEND Internal Medicine
DX: Z20.828 Contact with and (suspected) exposure to other viral communicable diseases (principal)

== ENCOUNTER → 2020-02-08 | Outpatient (REF) | payer MEDICARE, MEDICAID | PROVIDERS: ATTEND Internal Medicine | DX: Z20.828 Contact with and (suspected) exposure to other viral communicable diseases (principal) ==

== ENCOUNTER → 2020-02-12 | Outpatient (REF) | payer MEDICARE, MEDICAID | PROVIDERS: ATTEND Internal Medicine | DX: Z20.828 Contact with and (suspected) exposure to other viral communicable diseases (principal) ==

== ENCOUNTER → 2020-02-18 | Outpatient (REF) | payer MEDICARE, MEDICAID | PROVIDERS: ATTEND Internal Medicine | DX: Z20.828 Contact with and (suspected) exposure to other viral communicable diseases (principal) ==

== ENCOUNTER → 2020-02-24 | Outpatient (REF) | payer MEDICARE, MEDICAID | PROVIDERS: ATTEND Internal Medicine | DX: Z20.828 Contact with and (suspected) exposure to other viral communicable diseases (principal) ==

== ENCOUNTER → 2020-03-01 | Outpatient (REF) | payer MEDICARE, MEDICAID | PROVIDERS: ATTEND Internal Medicine | DX: Z20.822 Contact with and (suspected) exposure to COVID-19 (principal) ==

== ENCOUNTER → 2020-03-05 | Outpatient (REF) | payer MEDICARE, MEDICAID | PROVIDERS: ATTEND Internal Medicine | DX: Z20.822 Contact with and (suspected) exposure to COVID-19 (principal) ==

== ENCOUNTER → 2020-03-10 | Outpatient (REF) | payer MEDICARE, MEDICAID | PROVIDERS: ATTEND Internal Medicine | DX: Z20.822 Contact with and (suspected) exposure to COVID-19 (principal) ==

== ENCOUNTER → 2020-03-15 | Outpatient (REF) | payer MEDICARE, MEDICAID ==
[2020-03-15 12:06] LABS: HEMATOCRIT 39.4 % (42.0-52.0); HEMOGLOBIN 13.2 g/dl (13.5-17.5); MEAN CORPUSCULAR HEMOGLOBIN 33.9 pg (27.0-33.0); MEAN CORPUSCULAR HGB CONC 33.5 g/dl (32.0-36.5); MEAN CORPUSCULAR VOLUME 101.3 fl (80.0-96.0); PLATELET COUNT, AUTOMATED 276 10^3/uL (150-450); RED BLOOD COUNT 3.89 10^6/uL (4.30-6.10); WHITE BLOOD COUNT 8.2 10^3/uL (4.0-10.0)
[2020-03-15 13:02] LABS: ALBUMIN 2.8 GM/DL (3.2-5.2); ALT/SGPT 28 U/L (12-78); BILIRUBIN,TOTAL 0.3 MG/DL (0.2-1.0); BLOOD UREA NITROGEN 13 MG/DL (7-18); CALCIUM LEVEL 8.8 MG/DL (8.8-10.2); CARBON DIOXIDE LEVEL 23 MEQ/L (21-32); CHLORIDE LEVEL 102 MEQ/L (98-107); CHOLESTEROL LEVEL 183 MG/DL (<200); CHOLESTEROL RISK RATIO 3.978 (<5); CREATININE FOR GFR 0.67 MG/DL (0.70-1.30); GLOMERULAR FILTRATION RATE > 60.0 (>42); GLUCOSE, FASTING 136 MG/DL (70-100); HDL CHOLESTEROL 46 MG/DL (>40); LDL CHOLESTEROL 107 MG/DL (<100); NON-HDL-C 137 MG/DL; PHENYTOIN (DILANTIN) 14.1 UG/ML (10.0-20.0); POTASSIUM SERUM 3.9 MEQ/L (3.5-5.1); SODIUM LEVEL 134 MEQ/L (136-145); TOTAL 25(OH) VITAMIN D 64.2 NG/ML (30.0-100.0); TOTAL PROTEIN 6.8 GM/DL (6.4-8.2); TRIGLYCERIDES LEVEL 149 MG/DL (<150); VITAMIN B12 LEVEL 1524 PG/ML (247-911)
== END ==
PROVIDERS: ATTEND Internal Medicine
DX: G40.909 Epilepsy, unspecified, not intractable, without status epilepticus (principal); Z79.899 Other long term (current) drug therapy

== ENCOUNTER → 2020-03-17 | Outpatient (REF) | payer MEDICARE, MEDICAID | PROVIDERS: ATTEND Internal Medicine | DX: Z20.822 Contact with and (suspected) exposure to COVID-19 (principal) ==

== ENCOUNTER → 2020-03-24 | Outpatient (REF) | payer MEDICARE, MEDICAID | PROVIDERS: ATTEND Internal Medicine | DX: Z20.822 Contact with and (suspected) exposure to COVID-19 (principal) ==

== ENCOUNTER → 2020-03-31 | Outpatient (REF) | payer MEDICARE, MEDICAID | PROVIDERS: ATTEND Internal Medicine | DX: Z20.822 Contact with and (suspected) exposure to COVID-19 (principal) ==

== ENCOUNTER → 2020-04-07 | Outpatient (REF) | payer MEDICARE, MEDICAID | PROVIDERS: ATTEND Internal Medicine | DX: Z20.822 Contact with and (suspected) exposure to COVID-19 (principal) ==

== ENCOUNTER → 2020-04-14 | Outpatient (REF) | payer MEDICARE, MEDICAID | PROVIDERS: ATTEND Internal Medicine | DX: Z20.822 Contact with and (suspected) exposure to COVID-19 (principal) ==

== ENCOUNTER → 2020-04-20 | Outpatient (REF) | payer MEDICARE, MEDICAID | PROVIDERS: ATTEND Internal Medicine | DX: G40.909 Epilepsy, unspecified, not intractable, without status epilepticus (principal) ==

== ENCOUNTER → 2020-04-21 | Outpatient (REF) | payer MEDICARE, MEDICAID | PROVIDERS: ATTEND Internal Medicine | DX: Z20.822 Contact with and (suspected) exposure to COVID-19 (principal) ==

== ENCOUNTER → 2020-04-28 | Outpatient (REF) | payer MEDICARE, MEDICAID | PROVIDERS: ATTEND Internal Medicine | DX: Z20.822 Contact with and (suspected) exposure to COVID-19 (principal) ==

== ENCOUNTER → 2020-05-05 | Outpatient (REF) | payer MEDICARE, MEDICAID | PROVIDERS: ATTEND Internal Medicine | DX: Z11.52 Encounter for screening for COVID-19 (principal) ==

== ENCOUNTER → 2020-05-17 | Outpatient (REF) | payer MEDICARE, MEDICAID ==
[2020-05-17 10:38] LABS: HEMATOCRIT 40.2 % (42.0-52.0); HEMOGLOBIN 13.3 g/dl (13.5-17.5); MEAN CORPUSCULAR HEMOGLOBIN 33.6 pg (27.0-33.0); MEAN CORPUSCULAR HGB CONC 33.1 g/dl (32.0-36.5); MEAN CORPUSCULAR VOLUME 101.5 fl (80.0-96.0); PLATELET COUNT, AUTOMATED 247 10^3/uL (150-450); RED BLOOD COUNT 3.96 10^6/uL (4.30-6.10); WHITE BLOOD COUNT 7.9 10^3/uL (4.0-10.0)
[2020-05-17 11:38] LABS: ALT/SGPT 36 U/L (12-78); BILIRUBIN,TOTAL 0.1 MG/DL (0.2-1.0); BLOOD UREA NITROGEN 11 MG/DL (7-18); CALCIUM LEVEL 8.5 MG/DL (8.8-10.2); CARBON DIOXIDE LEVEL 23 MEQ/L (21-32); CHLORIDE LEVEL 105 MEQ/L (98-107); CREATININE FOR GFR 0.55 MG/DL (0.70-1.30); GLOMERULAR FILTRATION RATE > 60.0 (>42); GLUCOSE, FASTING 84 MG/DL (70-100); PHENYTOIN (DILANTIN) 17.7 UG/ML (10.0-20.0); POTASSIUM SERUM 4.1 MEQ/L (3.5-5.1); SODIUM LEVEL 137 MEQ/L (136-145)
== END ==
PROVIDERS: ATTEND Internal Medicine
DX: G40.909 Epilepsy, unspecified, not intractable, without status epilepticus (principal); Z79.899 Other long term (current) drug therapy

== ENCOUNTER → 2020-06-08 | Outpatient (REF) | payer MEDICARE, MEDICAID ==
[~2020-06-08] MED LIST changes: +MILK400S12 PO; -MILKSUS21 PO
== END ==
PROVIDERS: ATTEND Internal Medicine
DX: Z20.822 Contact with and (suspected) exposure to COVID-19 (principal)

== ENCOUNTER → 2020-06-15 | Outpatient (REF) | payer MEDICARE, MEDICAID | PROVIDERS: ATTEND Internal Medicine | DX: Z20.822 Contact with and (suspected) exposure to COVID-19 (principal) ==

== ENCOUNTER → 2020-06-16 | Outpatient (REF) | payer MEDICARE, MEDICAID ==
[2020-06-16 10:19] LABS: HEMOGLOBIN A1c 5.7 %
== END ==
PROVIDERS: ATTEND Nurse Practitioner Adult Health
DX: Z83.3 Family history of diabetes mellitus (principal); Z79.899 Other long term (current) drug therapy

== ENCOUNTER → 2020-06-22 | Outpatient (REF) | payer MEDICARE, MEDICAID | PROVIDERS: ATTEND Internal Medicine | DX: Z51.81 Encounter for therapeutic drug level monitoring (principal); Z79.899 Other long term (current) drug therapy; Z20.822 Contact with and (suspected) exposure to COVID-19 | CPT/HCPCS: 36415; 80185; U0003 ==

== ENCOUNTER → 2020-07-20 | Outpatient (REF) | payer MEDICARE, MEDICAID | PROVIDERS: ATTEND Internal Medicine | DX: G40.909 Epilepsy, unspecified, not intractable, without status epilepticus (principal) ==

== ENCOUNTER → 2020-08-31 | Outpatient (REF) | payer MEDICARE, MEDICAID ==
[2020-08-31 12:46] LABS: BLOOD UREA NITROGEN 20 MG/DL (7-18); CALCIUM LEVEL 8.1 MG/DL (8.8-10.2); CARBON DIOXIDE LEVEL 22 MEQ/L (21-32); CHLORIDE LEVEL 105 MEQ/L (98-107); CREATININE FOR GFR 0.73 MG/DL (0.70-1.30); GLOMERULAR FILTRATION RATE > 60.0 (>42); GLUCOSE, FASTING 137 MG/DL (70-100); POTASSIUM SERUM 4.1 MEQ/L (3.5-5.1); SODIUM LEVEL 137 MEQ/L (136-145)
== END ==
PROVIDERS: ATTEND Nurse Practitioner Adult Health
DX: I50.9 Heart failure, unspecified (principal)

== ENCOUNTER → 2020-09-15 | Outpatient (REF) | payer MEDICARE, MEDICAID ==
[~2020-09-15] MED LIST changes: +APAP325T4 PO; +B-121TAB3 PO; +DICL20GE TOP; +ERGO500029 PO; +FURO80TA2 PO; +GABA-1171 PO; +IPRA0.00 NEB; +LEVO500T4 PO; +MAGNSOL3 PO; +MIDO5TA PO; +MOXI1TAB PO; +OMEP-173 PO; -OMEP-218 PO; +PROP20TA72 PO; +SIMV40TA20 PO; +SYMB16INH INH; +[UNRECOGNIZED DRUG - CODE] TOP
[2020-09-15 13:01] LABS: HEMATOCRIT 39.5 % (42.0-52.0); HEMOGLOBIN 13.1 g/dl (13.5-17.5); MEAN CORPUSCULAR HEMOGLOBIN 33.6 pg (27.0-33.0); MEAN CORPUSCULAR HGB CONC 33.2 g/dl (32.0-36.5); MEAN CORPUSCULAR VOLUME 101.3 fl (80.0-96.0); PLATELET COUNT, AUTOMATED 241 10^3/uL (150-450); WHITE BLOOD COUNT 8.5 10^3/uL (4.0-10.0)
[2020-09-15 13:17] LABS: ALBUMIN 2.8 GM/DL (3.2-5.2); ALT/SGPT 30 U/L (12-78); BILIRUBIN,TOTAL 0.3 MG/DL (0.2-1.0); BLOOD UREA NITROGEN 17 MG/DL (7-18); CALCIUM LEVEL 8.4 MG/DL (8.8-10.2); CARBON DIOXIDE LEVEL 25 MEQ/L (21-32); CHLORIDE LEVEL 105 MEQ/L (98-107); CHOLESTEROL LEVEL 175 MG/DL (<200); CHOLESTEROL RISK RATIO 3.645 (<5); CREATININE FOR GFR 0.75 MG/DL (0.70-1.30); GLOMERULAR FILTRATION RATE > 60.0 (>42); GLUCOSE, FASTING 133 MG/DL (70-100); HDL CHOLESTEROL 48 MG/DL (>40); LDL CHOLESTEROL 96 MG/DL (<100); NON-HDL-C 127 MG/DL; PHENYTOIN (DILANTIN) 13.3 UG/ML (10.0-20.0); SODIUM LEVEL 138 MEQ/L (136-145); TOTAL PROTEIN 7.1 GM/DL (6.4-8.2); TRIGLYCERIDES LEVEL 153 MG/DL (<150)
[2020-09-15 13:39] LABS: VITAMIN B12 LEVEL > 2000 PG/ML (247-911)
== END ==
PROVIDERS: ATTEND Nurse Practitioner Adult Health
DX: G40.909 Epilepsy, unspecified, not intractable, without status epilepticus (principal); Z79.899 Other long term (current) drug therapy; Z13.89 Encounter for screening for other disorder

== ENCOUNTER → 2020-09-27 | Outpatient (REF) | payer MEDICARE, MEDICAID | PROVIDERS: ATTEND Internal Medicine | DX: G40.909 Epilepsy, unspecified, not intractable, without status epilepticus (principal); Z79.899 Other long term (current) drug therapy ==

== ENCOUNTER → 2020-11-03 | Outpatient (REF) | payer MEDICARE, MEDICAID ==
[~2020-11-03] MED LIST changes: -APAP325T4 PO; -B-121TAB3 PO; -DICL20GE TOP; -ERGO500029 PO; -FURO80TA2 PO; -GABA-1171 PO; -IPRA0.00 NEB; -LEVO500T4 PO; -MAGNSOL3 PO; -MIDO5TA PO; -MOXI1TAB PO; -OMEP-173 PO; +OMEP-218 PO; -PROP20TA72 PO; -SIMV40TA20 PO; -SYMB16INH INH; -[UNRECOGNIZED DRUG - CODE] TOP
== END ==
PROVIDERS: ATTEND Nurse Practitioner Adult Health
DX: G40.909 Epilepsy, unspecified, not intractable, without status epilepticus (principal); Z79.899 Other long term (current) drug therapy

== ENCOUNTER → 2020-11-10 | Outpatient (CLI) | payer MEDICARE, MEDICAID ==
--- NOTE | 2020-11-10 15:08 | REP ---
INDICATION: CHEST PAIN. COMPARISON: 01/02/2019 as well as other prior exams. TECHNIQUE: Single portable AP view of the chest was performed. FINDINGS: There is cardiomegaly with venous hypertension and chronically accentuated interstitial markings. These findings appear stable. There is no definite superimposed acute infiltrate. The mediastinal silhouette appears unchanged. Note the study is limited by the patient's hand overlying the right lung. Reportedly the right arm is not mobile and the patient could not be moved. IMPRESSION: No definite acute infiltrate. Chronic changes as discussed above appear stable. <Electronically signed by Olivier Teran > 11/10/20 [id number]
== END ==
PROVIDERS: ATTEND Internal Medicine
DX: I51.7 Cardiomegaly (principal); I87.309 Chronic venous hypertension (idiopathic) without complications of unspecified lower extremity; J84.89 Other specified interstitial pulmonary diseases; R07.9 Chest pain, unspecified

== ENCOUNTER → 2020-11-10 | Outpatient (REF) | payer MEDICARE, MEDICAID ==
[2020-11-10 09:49] LABS: BASO # 0.1 10^3/uL (0.0-0.2); BASO % 0.9 % (0.0-1.0); EOS # 0.6 10^3/uL (0.0-0.5); EOS % 5.9 % (0.0-3.0); HEMOGLOBIN 14.1 g/dl (13.5-17.5); LYMPH # 1.8 10^3/uL (1.5-5.0); LYMPH % 18.7 % (24.0-44.0); MEAN CORPUSCULAR HEMOGLOBIN 33.7 pg (27.0-33.0); MEAN CORPUSCULAR HGB CONC 34.4 g/dl (32.0-36.5); MEAN CORPUSCULAR VOLUME 98.1 fl (80.0-96.0); MONO # 0.8 10^3/uL (0.0-0.8); MONO % 8.1 % (2.0-8.0); NEUTROPHILS # 6.4 10^3/uL (1.5-8.5); NEUTROPHILS % 65.5 % (36.0-66.0); PLATELET COUNT, AUTOMATED 239 10^3/uL (150-450); RED BLOOD COUNT 4.18 10^6/uL (4.30-6.10); WHITE BLOOD COUNT 9.8 10^3/uL (4.0-10.0)
[2020-11-10 09:57] LABS: BLOOD UREA NITROGEN 13 MG/DL (7-18); CALCIUM LEVEL 8.3 MG/DL (8.8-10.2); CARBON DIOXIDE LEVEL 25 MEQ/L (21-32); CHLORIDE LEVEL 103 MEQ/L (98-107); CREATININE FOR GFR 0.55 MG/DL (0.70-1.30); GLOMERULAR FILTRATION RATE > 60.0 (>42); GLUCOSE, FASTING 91 MG/DL (70-100); POTASSIUM SERUM 4.3 MEQ/L (3.5-5.1); SODIUM LEVEL 134 MEQ/L (136-145)
== END ==
PROVIDERS: ATTEND Internal Medicine
DX: R07.9 Chest pain, unspecified (principal)

== ENCOUNTER → 2020-11-15 | Outpatient (REF) | payer MEDICARE, MEDICAID ==
[2020-11-15 14:11] LABS: BLOOD UREA NITROGEN 17 MG/DL (7-18); CALCIUM LEVEL 8.4 MG/DL (8.8-10.2); CARBON DIOXIDE LEVEL 26 MEQ/L (21-32); CHLORIDE LEVEL 99 MEQ/L (98-107); CREATININE FOR GFR 0.75 MG/DL (0.70-1.30); GLOMERULAR FILTRATION RATE > 60.0 (>42); GLUCOSE, FASTING 126 MG/DL (70-100); SODIUM LEVEL 134 MEQ/L (136-145)
== END ==
PROVIDERS: ATTEND Internal Medicine
DX: I50.9 Heart failure, unspecified (principal)

== ENCOUNTER → 2020-11-17 | Outpatient (REF) | payer MEDICARE, MEDICAID ==
[2020-11-17 11:15] LABS: HEMOGLOBIN A1c 5.6 %
== END ==
PROVIDERS: ATTEND Internal Medicine
DX: R73.01 Impaired fasting glucose (principal); Z83.3 Family history of diabetes mellitus

== ENCOUNTER → 2020-12-15 | Outpatient (REF) | payer MEDICARE, MEDICAID | PROVIDERS: ATTEND Internal Medicine | DX: Z51.81 Encounter for therapeutic drug level monitoring (principal) ==

== ENCOUNTER → 2021-01-12 | Outpatient (REF) | payer MEDICARE, MEDICAID | PROVIDERS: ATTEND Internal Medicine | DX: G40.909 Epilepsy, unspecified, not intractable, without status epilepticus (principal); Z79.899 Other long term (current) drug therapy ==

== ENCOUNTER → 2021-01-26 | Outpatient (REF) | payer MEDICARE, MEDICAID ==
[~2021-01-26] MED LIST changes: +APAP325T4 PO; +B-121TAB3 PO; +DICL20GE TOP; +ERGO500029 PO; +FURO80TA2 PO; +GABA-1171 PO; +IPRA0.00 NEB; +LEVO500T4 PO; +MAGNSOL3 PO; +MIDO5TA PO; +MOXI1TAB PO; +OMEP-173 PO; -OMEP-218 PO; +PROP20TA72 PO; +SIMV40TA20 PO; +SYMB16INH INH; +[UNRECOGNIZED DRUG - CODE] TOP
[2021-01-26 11:08] LABS: HEMOGLOBIN 13.6 g/dl (13.5-17.5); MEAN CORPUSCULAR HEMOGLOBIN 33.9 pg (27.0-33.0); MEAN CORPUSCULAR HGB CONC 34.9 g/dl (32.0-36.5); MEAN CORPUSCULAR VOLUME 97.3 fl (80.0-96.0); PLATELET COUNT, AUTOMATED 281 10^3/uL (150-450); RED BLOOD COUNT 4.01 10^6/uL (4.30-6.10)
[2021-01-26 11:48] LABS: ALBUMIN 2.7 GM/DL (3.2-5.2); ALT/SGPT 30 U/L (12-78); BILIRUBIN,TOTAL 0.3 MG/DL (0.2-1.0); BLOOD UREA NITROGEN 17 MG/DL (7-18); CALCIUM LEVEL 8.4 MG/DL (8.8-10.2); CARBON DIOXIDE LEVEL 22 MEQ/L (21-32); CHLORIDE LEVEL 103 MEQ/L (98-107); CREATININE FOR GFR 0.71 MG/DL (0.70-1.30); GLOMERULAR FILTRATION RATE > 60.0 (>42); GLUCOSE, FASTING 106 MG/DL (70-100); PHENYTOIN (DILANTIN) 17.9 UG/ML (10.0-20.0); POTASSIUM SERUM 4.1 MEQ/L (3.5-5.1); SODIUM LEVEL 136 MEQ/L (136-145); TOTAL PROTEIN 6.9 GM/DL (6.4-8.2)
== END ==
PROVIDERS: ATTEND Internal Medicine
DX: G40.909 Epilepsy, unspecified, not intractable, without status epilepticus (principal)

== ENCOUNTER → 2021-02-02 | Outpatient (REF) | payer MEDICARE, MEDICAID ==
[~2021-02-02] MED LIST changes: -APAP325T4 PO; -B-121TAB3 PO; -DICL20GE TOP; -ERGO500029 PO; -FURO80TA2 PO; -GABA-1171 PO; -IPRA0.00 NEB; -LEVO500T4 PO; -MAGNSOL3 PO; -MIDO5TA PO; -MOXI1TAB PO; -OMEP-173 PO; +OMEP-218 PO; -PROP20TA72 PO; -SIMV40TA20 PO; -SYMB16INH INH; -[UNRECOGNIZED DRUG - CODE] TOP
[2021-02-02 13:26] LABS: CHOLESTEROL RISK RATIO 4.702 (<5)
== END ==
PROVIDERS: ATTEND Internal Medicine
DX: Z79.899 Other long term (current) drug therapy (principal)

== ENCOUNTER → 2021-02-02 | Outpatient (REF) | payer MEDICARE, MEDICAID | PROVIDERS: ATTEND Internal Medicine | DX: G40.909 Epilepsy, unspecified, not intractable, without status epilepticus (principal); Z79.899 Other long term (current) drug therapy ==

== ENCOUNTER → 2021-03-02 | Outpatient (REF) | payer MEDICARE, MEDICAID ==
[~2021-03-02] MED LIST changes: +OMEP-173 PO; -OMEP-218 PO
== END ==
PROVIDERS: ATTEND Internal Medicine
DX: G40.909 Epilepsy, unspecified, not intractable, without status epilepticus (principal)

== ENCOUNTER → 2021-03-29 | Outpatient (REF) | payer MEDICARE, MEDICAID ==
[~2021-03-29] MED LIST changes: +APAP325T4 PO; +B-121TAB3 PO; +DICL20GE TOP; +ERGO500029 PO; +FURO80TA2 PO; +GABA-1171 PO; +IPRA0.00 NEB; +LEVO500T4 PO; +MAGNSOL3 PO; +MIDO5TA PO; +MOXI1TAB PO; +PROP20TA72 PO; +SIMV40TA20 PO; +SYMB16INH INH; +[UNRECOGNIZED DRUG - CODE] TOP
[2021-03-29 15:48] LABS: BASO # 0.1 10^3/uL (0.0-0.2); EOS # 0.4 10^3/uL (0.0-0.5); EOS % 3.9 % (0.0-3.0); HEMATOCRIT 42.5 % (42.0-52.0); HEMOGLOBIN 14.1 g/dl (13.5-17.5); LYMPH # 1.6 10^3/uL (1.5-5.0); LYMPH % 17.6 % (24.0-44.0); MEAN CORPUSCULAR HEMOGLOBIN 33.3 pg (27.0-33.0); MEAN CORPUSCULAR HGB CONC 33.2 g/dl (32.0-36.5); MEAN CORPUSCULAR VOLUME 100.5 fl (80.0-96.0); MONO # 0.9 10^3/uL (0.0-0.8); MONO % 10.1 % (2.0-8.0); NEUTROPHILS # 6.2 10^3/uL (1.5-8.5); PLATELET COUNT, AUTOMATED 304 10^3/uL (150-450); RED BLOOD COUNT 4.23 10^6/uL (4.30-6.10); WHITE BLOOD COUNT 9.2 10^3/uL (4.0-10.0)
[2021-03-29 15:58] LABS: BLOOD UREA NITROGEN 20 MG/DL (7-18); CALCIUM LEVEL 8.4 MG/DL (8.8-10.2); CARBON DIOXIDE LEVEL 28 MEQ/L (21-32); CHLORIDE LEVEL 100 MEQ/L (98-107); CREATININE FOR GFR 0.92 MG/DL (0.70-1.30); GLOMERULAR FILTRATION RATE > 60.0 (>42); GLUCOSE, FASTING 117 MG/DL (70-100); NT-PRO BNP 215 PG/ML (<450); SODIUM LEVEL 135 MEQ/L (136-145)
== END ==
PROVIDERS: ATTEND Internal Medicine
DX: J44.9 Chronic obstructive pulmonary disease, unspecified (principal); R41.82 Altered mental status, unspecified; R06.00 Dyspnea, unspecified

== ENCOUNTER → 2021-03-29 | Outpatient (CLI) | payer MEDICARE, MEDICAID | PROVIDERS: ATTEND Internal Medicine | DX: I51.7 Cardiomegaly (principal); R09.89 Other specified symptoms and signs involving the circulatory and respiratory systems ==

== ENCOUNTER → 2021-03-29 | Outpatient (REF) | payer MEDICARE, MEDICAID | PROVIDERS: ATTEND Internal Medicine | DX: R82.998 Other abnormal findings in urine (principal) ==

== ENCOUNTER 2021-03-30 11:06 | Inpatient (IN) | payer MEDICARE, MEDICAID ==
[~2021-03-30] VITALS: Ht 180.3 cm; Wt 101.8 kg
[~2021-03-30 11:06] MED LIST changes: -APAP325T4 PO; -B-121TAB3 PO; -DICL20GE TOP; -ERGO500029 PO; -FURO80TA2 PO; -GABA-1171 PO; -IPRA0.00 NEB; -LEVO500T4 PO; -MAGNSOL3 PO; -MIDO5TA PO; -MOXI1TAB PO; -PROP20TA72 PO; -SIMV40TA20 PO; -SYMB16INH INH; -[UNRECOGNIZED DRUG - CODE] TOP
[2021-03-30] MEDS ORDERED: LevoFLOXacin IV 750 MG in IV 1 EA IV ONE (11:15)
[2021-03-30] MEDS ORDERED: methylPREDNISolone 125MG 2ML VIAL IV ONE (11:15)
[2021-03-30] MEDS: COMBIVENT RESPIMAT 100-20MCG INHALER 4GM INH SCH ×3 (11:35→11:55)
[2021-03-30] MEDS ORDERED: NS 3,060 ML in IV 1 EA IV ONE (11:35)
[2021-03-30 11:38] LABS: VENOUS BASE EXCESS -1.4 (-2.0-2.0); VENOUS HCO3 24.1 MEQ/L (23.0-27.0); VENOUS O2 SATURATION 59.1 % (60.0-80.0); VENOUS PARTIAL PRESSURE CO2 43.5 mmHg (38.0-50.0); VENOUS PARTIAL PRESSURE O2 32.3 mmHg (30.0-50.0); VENOUS PH 7.362 UNITS (7.330-7.430); VENOUS STANDARD HCO3 22.4 MEQ/L; VENOUS TOTAL CO2 25.5 MEQ/L (24.0-28.0)
[2021-03-30 11:46] LABS: BASO # 0.1 10^3/uL (0.0-0.2); BASO % 0.8 % (0.0-1.0); EOS # 0.3 10^3/uL (0.0-0.5); EOS % 2.6 % (0.0-3.0); HEMATOCRIT 41.5 % (42.0-52.0); HEMOGLOBIN 14.1 g/dl (13.5-17.5); LYMPH # 1.3 10^3/uL (1.5-5.0); LYMPH % 12.6 % (24.0-44.0); MEAN CORPUSCULAR HEMOGLOBIN 33.6 pg (27.0-33.0); MEAN CORPUSCULAR VOLUME 98.8 fl (80.0-96.0); MONO % 9.1 % (2.0-8.0); NEUTROPHILS # 7.9 10^3/uL (1.5-8.5); NEUTROPHILS % 74.3 % (36.0-66.0); PLATELET COUNT, AUTOMATED 256 10^3/uL (150-450); WHITE BLOOD COUNT 10.6 10^3/uL (4.0-10.0)
[2021-03-30] MEDS: MIDODRINE 5 MG TAB PO SCH ×2 (12:00→17:42)
[2021-03-30 12:13] LABS: ALBUMIN 2.8 GM/DL (3.2-5.2); ALT/SGPT 34 U/L (12-78); BILIRUBIN,DIRECT 0.2 MG/DL (0.0-0.2); BILIRUBIN,TOTAL 0.4 MG/DL (0.2-1.0); BLOOD UREA NITROGEN 21 MG/DL (7-18); CALCIUM LEVEL 8.1 MG/DL (8.8-10.2); CARBON DIOXIDE LEVEL 28 MEQ/L (21-32); CHLORIDE LEVEL 101 MEQ/L (98-107); CREATININE FOR GFR 1.13 MG/DL (0.70-1.30); GLOMERULAR FILTRATION RATE > 60.0 (>42); GLUCOSE, FASTING 136 MG/DL (70-100); POTASSIUM SERUM 4.1 MEQ/L (3.5-5.1); SODIUM LEVEL 132 MEQ/L (136-145); TOTAL PROTEIN 7.1 GM/DL (6.4-8.2)
[2021-03-30] MEDS: LACTOBACILLUS ACIDOPHILUS CAP (BACID) PO SCH ×3 (12:30→20:15)
[2021-03-30] MEDS ORDERED: FUROSEMIDE 20MG/2ML VIAL (J1940) IV ONE (12:55)
[2021-03-30] MEDS ORDERED: LEVALBUTEROL 1.25 MG/0.5 ML CONCENTRATE NEB INH PRN (13:00)
[2021-03-30 13:04] LABS: NT-PRO BNP 217 PG/ML (<450)
[2021-03-30] MEDS ORDERED: FURO80TA2 PO (13:40)
[2021-03-30] MEDS ORDERED: SYMB16INH INH (13:40)
[2021-03-30] MEDS ORDERED: DICL20GE TOP (13:40)
[2021-03-30] MEDS ORDERED: B-121TAB3 PO (13:40)
[2021-03-30] MEDS ORDERED: [UNRECOGNIZED DRUG - CODE] TOP (13:40)
[2021-03-30] MEDS ORDERED: BISA5TAB15 PO (13:40)
[2021-03-30] MEDS ORDERED: GABA-1171 PO ×2 (13:40)
[2021-03-30] MEDS ORDERED: LEVO500T4 PO (13:40)
[2021-03-30] MEDS ORDERED: PROP20TA72 PO (13:40)
[2021-03-30] MEDS ORDERED: ERGO500029 PO (13:40)
[2021-03-30] MEDS ORDERED: SIMV40TA20 PO (13:40)
[2021-03-30] MEDS ORDERED: MAGNSOL3 PO (13:51)
[2021-03-30] MEDS ORDERED: APAP325T4 PO (13:51)
[2021-03-30] MEDS ORDERED: IPRA0.00 NEB (13:51)
[2021-03-30] MEDS ORDERED: DULC10SU2 PR (13:51)
[2021-03-30 13:53] LABS: ERYTHROCYTE SEDIMENTATION RATE 57 mm/hr (0-20)
[2021-03-30] MEDS ORDERED: HOME MED LIST COMPLETE! XX SCH (13:55)
[2021-03-30 17:11] VITALS: BP 102/53
[2021-03-30 19:02] LABS: CK-MB VALUE MASS < 1.0 NG/ML (<3.6); CPK CREATINE PHOSPHOKINASE 33 U/L (39-308); MB/CK RELATIVE INDEX 3.03 (< OR =4)
[2021-03-30] MEDS ORDERED: MAGNESIUM CITRATE 300 ML BTL PO PRN (20:50)
[2021-03-30] MEDS ORDERED: FLEET ENEMA PR PRN (20:50)
[2021-03-30 21:00] VITALS: BP 104/53
[2021-03-30] MEDS ORDERED: PILL CUTTER 1 EACH XX PRN (21:15)
[2021-03-30] MEDS: GABAPENTIN 100 MG CAP PO SCH (21:30)
[2021-03-30] MEDS: PHENYTOIN ER 100 MG CAP PO SCH (21:30)
[2021-03-30] MEDS: SIMVASTATIN 40 MG TAB PO SCH (21:32)
[2021-03-30] MEDS: PRIMIDONE 250 MG TAB PO SCH (22:14)
[2021-03-30] MEDS: LATANOPROST 0.005% OPHTH SOLN 2.5 ML OU SCH (22:15)
[2021-03-31 00:33] LABS: CK-MB VALUE MASS < 1.0 NG/ML (<3.6); CPK CREATINE PHOSPHOKINASE 34 U/L (39-308); MB/CK RELATIVE INDEX 2.94 (< OR =4)
[2021-03-31 04:30] VITALS: BP 133/66
[2021-03-31 05:54] LABS: HEMATOCRIT 37.9 % (42.0-52.0); HEMOGLOBIN 12.9 g/dl (13.5-17.5); MEAN CORPUSCULAR HEMOGLOBIN 33.6 pg (27.0-33.0); MEAN CORPUSCULAR VOLUME 98.7 fl (80.0-96.0); PLATELET COUNT, AUTOMATED 249 10^3/uL (150-450); RED BLOOD COUNT 3.84 10^6/uL (4.30-6.10); WHITE BLOOD COUNT 11.2 10^3/uL (4.0-10.0)
[2021-03-31 06:16] LABS: BLOOD UREA NITROGEN 24 MG/DL (7-18); CALCIUM LEVEL 8.1 MG/DL (8.8-10.2); CARBON DIOXIDE LEVEL 23 MEQ/L (21-32); CHLORIDE LEVEL 105 MEQ/L (98-107); CREATININE FOR GFR 0.91 MG/DL (0.70-1.30); GLOMERULAR FILTRATION RATE > 60.0 (>42); GLUCOSE, FASTING 106 MG/DL (70-100); POTASSIUM SERUM 3.3 MEQ/L (3.5-5.1); SODIUM LEVEL 137 MEQ/L (136-145)
[2021-03-31] MEDS ORDERED: SENOKOT S TAB PO PRN (07:55)
[2021-03-31] MEDS ORDERED: MOM 30ML SUSPENSION UDC PO PRN (07:55)
[2021-03-31] MEDS ORDERED: metOLazone 2.5 MG TAB PO ONE (07:55)
[2021-03-31] MEDS ORDERED: POTASSIUM CHLORIDE 10MEQ SR TABLET PO ONE (07:55)
[2021-03-31] MEDS ORDERED: FUROSEMIDE 20MG/2ML VIAL (J1940) IV ONE (07:55)
[2021-03-31] MEDS: IPRATROPIUM 0.5MG/ALBUTEROL 2.5MG INH SOL UD 3ML (DUONEB) NEB SCH ×4 (08:00→20:38)
[2021-03-31] MEDS: BISACODYL 5 MG TAB PO SCH (08:25)
[2021-03-31] MEDS: PRIMIDONE 250 MG TAB PO SCH ×3 (08:25→20:23)
[2021-03-31] MEDS: GABAPENTIN 100 MG CAP PO SCH ×2 (08:25→20:22)
[2021-03-31] MEDS: LACTOBACILLUS ACIDOPHILUS CAP (BACID) PO SCH ×4 (08:26→20:22)
[2021-03-31] MEDS: PHENYTOIN ER 100 MG CAP PO SCH ×4 (08:26→20:26)
[2021-03-31] MEDS: MIDODRINE 5 MG TAB PO SCH ×3 (08:26→17:00)
[2021-03-31 08:30] VITALS: BP 105/58
[2021-03-31] MEDS ORDERED: PROPRANOLOL 20 MG TAB PO SCH (09:00)
[2021-03-31] MEDS ORDERED: FUROSEMIDE 80 MG TAB PO SCH (09:00)
[2021-03-31 09:42] VITALS: BP 104/58
[2021-03-31] MEDS: SYMBICORT 160/4.5MCG INHALER 6GM INH SCH ×2 (11:16→20:38)
[2021-03-31] MEDS ORDERED: MOXIFLOXACIN HCL 400 MG in IV 1 EA IV SCH (12:00)
[2021-03-31 13:49] LABS: BLOOD UREA NITROGEN 25 MG/DL (7-18); CALCIUM LEVEL 8.6 MG/DL (8.8-10.2); CARBON DIOXIDE LEVEL 27 MEQ/L (21-32); CHLORIDE LEVEL 101 MEQ/L (98-107); GLOMERULAR FILTRATION RATE > 60.0 (>42); GLUCOSE, FASTING 120 MG/DL (70-100); POTASSIUM SERUM 3.8 MEQ/L (3.5-5.1); SODIUM LEVEL 135 MEQ/L (136-145)
[2021-03-31 14:00] VITALS: BP 103/54
[2021-03-31 15:41] LABS: MAGNESIUM LEVEL 1.9 MG/DL (1.7-2.2)
[2021-03-31] MEDS: SIMVASTATIN 40 MG TAB PO SCH (20:22)
[2021-03-31] MEDS: POTASSIUM CHLORIDE 10MEQ SR TABLET PO SCH (20:23)
[2021-03-31] MEDS: LATANOPROST 0.005% OPHTH SOLN 2.5 ML OU SCH (20:24)
[2021-03-31 21:00] VITALS: BP 128/60
[2021-03-31 22:32] LABS: MAGNESIUM LEVEL 1.9 MG/DL (1.7-2.2)
[2021-04-01 06:00] VITALS: BP 105/44
[2021-04-01] MEDS: SYMBICORT 160/4.5MCG INHALER 6GM INH SCH ×2 (07:17→19:19)
[2021-04-01] MEDS: IPRATROPIUM 0.5MG/ALBUTEROL 2.5MG INH SOL UD 3ML (DUONEB) NEB SCH ×4 (07:17→19:19)
[2021-04-01 07:26] LABS: HEMATOCRIT 37.5 % (42.0-52.0); HEMOGLOBIN 12.6 g/dl (13.5-17.5); MEAN CORPUSCULAR HEMOGLOBIN 33.7 pg (27.0-33.0); MEAN CORPUSCULAR HGB CONC 33.6 g/dl (32.0-36.5); MEAN CORPUSCULAR VOLUME 100.3 fl (80.0-96.0); PLATELET COUNT, AUTOMATED 261 10^3/uL (150-450); RED BLOOD COUNT 3.74 10^6/uL (4.30-6.10)
[2021-04-01 07:47] LABS: BLOOD UREA NITROGEN 25 MG/DL (7-18); CALCIUM LEVEL 8.3 MG/DL (8.8-10.2); CARBON DIOXIDE LEVEL 25 MEQ/L (21-32); CHLORIDE LEVEL 106 MEQ/L (98-107); CREATININE FOR GFR 0.95 MG/DL (0.70-1.30); GLOMERULAR FILTRATION RATE > 60.0 (>42); GLUCOSE, FASTING 98 MG/DL (70-100); PHENYTOIN (DILANTIN) 17.6 UG/ML (10.0-20.0); POTASSIUM SERUM 4.4 MEQ/L (3.5-5.1); SODIUM LEVEL 139 MEQ/L (136-145)
[2021-04-01] MEDS: PHENYTOIN ER 100 MG CAP PO SCH ×4 (08:39→20:47)
[2021-04-01] MEDS: GABAPENTIN 100 MG CAP PO SCH ×2 (08:40→20:47)
[2021-04-01] MEDS: MIDODRINE 5 MG TAB PO SCH ×3 (08:40→17:49)
[2021-04-01] MEDS: LACTOBACILLUS ACIDOPHILUS CAP (BACID) PO SCH ×4 (08:40→20:47)
[2021-04-01] MEDS: PRIMIDONE 250 MG TAB PO SCH ×3 (08:41→20:47)
[2021-04-01] MEDS: BISACODYL 5 MG TAB PO SCH (08:41)
[2021-04-01] MEDS: POTASSIUM CHLORIDE 10MEQ SR TABLET PO SCH (08:41)
[2021-04-01] MEDS ORDERED: BACITAB PO (09:19)
[2021-04-01] MEDS ORDERED: MIDO5TA PO (09:19)
[2021-04-01] MEDS ORDERED: MOXI1TAB PO (09:19)
[2021-04-01 12:27] LABS: ABG BASE EXCESS 0.4 (-2.0-2.0); ABG HCO3 24.7 MEQ/L (22.0-26.0); ABG O2 SATURATION 92.5 % (95.0-99.0); ABG PARTIAL PRESSURE CO2 39.1 mmHg (35.0-45.0); ABG PARTIAL PRESSURE O2 65.7 mmHg (75.0-100.0); ABG STANDARD HCO3 24.7 MEQ/L (22.0-26.0); ABG TOTAL CO2 25.9 MEQ/L (23.0-31.0); ABG pH (ARTERIAL) 7.419 UNITS (7.350-7.450)
[2021-04-01 12:48] LABS: C REACTIVE PROTEIN QUANTITATIV 6.04 MG/DL (0.00-0.30)
[2021-04-01 12:54] VITALS: BP 122/52
[2021-04-01] MEDS: MOXIFLOXACIN 400 MG TAB PO SCH (14:43)
[2021-04-01 15:07] LABS: CK-MB VALUE MASS < 1.0 NG/ML (<3.6); CPK CREATINE PHOSPHOKINASE 26 U/L (39-308); MB/CK RELATIVE INDEX 3.85 (< OR =4)
[2021-04-01] MEDS: SIMVASTATIN 40 MG TAB PO SCH (20:47)
[2021-04-01] MEDS: LATANOPROST 0.005% OPHTH SOLN 2.5 ML OU SCH (20:47)
[2021-04-01 21:57] LABS: MAGNESIUM LEVEL 1.8 MG/DL (1.7-2.2)
[2021-04-02] MEDS: MOXIFLOXACIN 400 MG TAB PO SCH (05:31)
[2021-04-02 06:00] VITALS: BP 130/65
[2021-04-02 06:37] LABS: HEMATOCRIT 36.3 % (42.0-52.0); HEMOGLOBIN 12.2 g/dl (13.5-17.5); MEAN CORPUSCULAR HEMOGLOBIN 33.8 pg (27.0-33.0); MEAN CORPUSCULAR HGB CONC 33.6 g/dl (32.0-36.5); MEAN CORPUSCULAR VOLUME 100.6 fl (80.0-96.0); PLATELET COUNT, AUTOMATED 245 10^3/uL (150-450); RED BLOOD COUNT 3.61 10^6/uL (4.30-6.10); WHITE BLOOD COUNT 8.8 10^3/uL (4.0-10.0)
[2021-04-02 06:54] LABS: BLOOD UREA NITROGEN 22 MG/DL (7-18); CALCIUM LEVEL 8.3 MG/DL (8.8-10.2); CARBON DIOXIDE LEVEL 25 MEQ/L (21-32); CHLORIDE LEVEL 106 MEQ/L (98-107); CREATININE FOR GFR 0.83 MG/DL (0.70-1.30); GLOMERULAR FILTRATION RATE > 60.0 (>42); GLUCOSE, FASTING 106 MG/DL (70-100); POTASSIUM SERUM 3.7 MEQ/L (3.5-5.1); SODIUM LEVEL 138 MEQ/L (136-145)
[2021-04-02] MEDS: IPRATROPIUM 0.5MG/ALBUTEROL 2.5MG INH SOL UD 3ML (DUONEB) NEB SCH ×4 (08:00→19:48)
[2021-04-02] MEDS: SYMBICORT 160/4.5MCG INHALER 6GM INH SCH ×2 (08:08→19:47)
[2021-04-02] MEDS ORDERED: metOLazone 2.5 MG TAB PO ONE (08:30)
[2021-04-02] MEDS ORDERED: FUROSEMIDE 80 MG TAB PO ONE (09:00)
[2021-04-02] MEDS: GABAPENTIN 100 MG CAP PO SCH ×2 (09:27→20:31)
[2021-04-02] MEDS: LACTOBACILLUS ACIDOPHILUS CAP (BACID) PO SCH ×4 (09:27→20:32)
[2021-04-02] MEDS: PRIMIDONE 250 MG TAB PO SCH ×3 (09:28→20:32)
[2021-04-02] MEDS: MIDODRINE 5 MG TAB PO SCH ×3 (09:28→15:46)
[2021-04-02] MEDS: PHENYTOIN ER 100 MG CAP PO SCH ×4 (09:29→20:31)
[2021-04-02] MEDS: BISACODYL 5 MG TAB PO SCH (09:29)
[2021-04-02 15:39] VITALS: BP 116/50
[2021-04-02 19:36] LABS: MAGNESIUM LEVEL 1.6 MG/DL (1.7-2.2)
[2021-04-02] MEDS: SIMVASTATIN 40 MG TAB PO SCH (20:31)
[2021-04-02] MEDS: LATANOPROST 0.005% OPHTH SOLN 2.5 ML OU SCH (20:32)
[2021-04-03] MEDS: MOXIFLOXACIN 400 MG TAB PO SCH (05:32)
[2021-04-03 06:00] VITALS: BP 116/60
[2021-04-03 06:58] LABS: HEMATOCRIT 36.6 % (42.0-52.0); HEMOGLOBIN 12.3 g/dl (13.5-17.5); MEAN CORPUSCULAR HEMOGLOBIN 33.6 pg (27.0-33.0); MEAN CORPUSCULAR HGB CONC 33.6 g/dl (32.0-36.5); PLATELET COUNT, AUTOMATED 230 10^3/uL (150-450); RED BLOOD COUNT 3.66 10^6/uL (4.30-6.10); WHITE BLOOD COUNT 7.5 10^3/uL (4.0-10.0)
[2021-04-03 07:21] LABS: BLOOD UREA NITROGEN 23 MG/DL (7-18); CALCIUM LEVEL 8.5 MG/DL (8.8-10.2); CARBON DIOXIDE LEVEL 25 MEQ/L (21-32); CHLORIDE LEVEL 102 MEQ/L (98-107); CREATININE FOR GFR 0.85 MG/DL (0.70-1.30); GLOMERULAR FILTRATION RATE > 60.0 (>42); GLUCOSE, FASTING 104 MG/DL (70-100); SODIUM LEVEL 135 MEQ/L (136-145)
[2021-04-03] MEDS: SYMBICORT 160/4.5MCG INHALER 6GM INH SCH ×2 (07:31→19:34)
[2021-04-03] MEDS: IPRATROPIUM 0.5MG/ALBUTEROL 2.5MG INH SOL UD 3ML (DUONEB) NEB SCH ×4 (08:00→19:34)
[2021-04-03] MEDS: MIDODRINE 5 MG TAB PO SCH ×3 (09:40→15:45)
[2021-04-03] MEDS: PRIMIDONE 250 MG TAB PO SCH ×3 (09:40→22:05)
[2021-04-03] MEDS: BISACODYL 5 MG TAB PO SCH (09:40)
[2021-04-03] MEDS: PHENYTOIN ER 100 MG CAP PO SCH ×4 (09:40→22:05)
[2021-04-03] MEDS: LACTOBACILLUS ACIDOPHILUS CAP (BACID) PO SCH ×4 (09:40→22:05)
[2021-04-03] MEDS: GABAPENTIN 100 MG CAP PO SCH ×2 (09:41→22:04)
[2021-04-03] MEDS ORDERED: ACETAMINOPHEN 500 MG TAB PO ONE (10:35)
[2021-04-03] MEDS ORDERED: ACETAMINOPHEN TAB 650MG DOSE (2X325MG) PO PRN (10:35)
[2021-04-03] MEDS: ANALGESIC BALM CRM 3OZ TOP SCH ×3 (13:36→22:04)
[2021-04-03 16:07] LABS: MAGNESIUM LEVEL 1.6 MG/DL (1.7-2.2)
[2021-04-03] MEDS: LATANOPROST 0.005% OPHTH SOLN 2.5 ML OU SCH (22:04)
[2021-04-03] MEDS: SIMVASTATIN 40 MG TAB PO SCH (22:05)
[2021-04-04 04:56] LABS: HEMOGLOBIN 12.5 g/dl (13.5-17.5); MEAN CORPUSCULAR HEMOGLOBIN 33.8 pg (27.0-33.0); MEAN CORPUSCULAR HGB CONC 33.8 g/dl (32.0-36.5); PLATELET COUNT, AUTOMATED 235 10^3/uL (150-450)
[2021-04-04 05:17] LABS: BLOOD UREA NITROGEN 22 MG/DL (7-18); CARBON DIOXIDE LEVEL 25 MEQ/L (21-32); CHLORIDE LEVEL 105 MEQ/L (98-107); GLOMERULAR FILTRATION RATE > 60.0 (>42); GLUCOSE, FASTING 100 MG/DL (70-100); SODIUM LEVEL 140 MEQ/L (136-145)
[2021-04-04] MEDS: MOXIFLOXACIN 400 MG TAB PO SCH (05:36)
[2021-04-04 06:00] VITALS: BP 108/56
[2021-04-04] MEDS: SYMBICORT 160/4.5MCG INHALER 6GM INH SCH (07:27)
[2021-04-04] MEDS: IPRATROPIUM 0.5MG/ALBUTEROL 2.5MG INH SOL UD 3ML (DUONEB) NEB SCH (07:27)
[2021-04-04] MEDS: BISACODYL 5 MG TAB PO SCH (09:08)
[2021-04-04] MEDS: PHENYTOIN ER 100 MG CAP PO SCH (09:08)
[2021-04-04] MEDS: GABAPENTIN 100 MG CAP PO SCH (09:08)
[2021-04-04] MEDS: LACTOBACILLUS ACIDOPHILUS CAP (BACID) PO SCH (09:08)
[2021-04-04] MEDS: PRIMIDONE 250 MG TAB PO SCH (09:08)
[2021-04-04] MEDS: MIDODRINE 5 MG TAB PO SCH (09:08)
[2021-04-04] MEDS: ANALGESIC BALM CRM 3OZ TOP SCH (09:09)
[2021-04-04 19:35] LABS: MAGNESIUM LEVEL 1.6 MG/DL (1.7-2.2)
== END 2021-04-04 11:24 | DRG 193 ==
LOC: M ED 11:06 → EDBD 11:06 → M ED INP 12:54 → ENRESERV 16:19 → M MSPAV 17:00
PROVIDERS: ADMIT General Practice; ATTEND General Practice
DX: J18.9 Pneumonia, unspecified organism (principal); J96.01 Acute respiratory failure with hypoxia; I50.32 Chronic diastolic (congestive) heart failure; I69.354 Hemiplegia and hemiparesis following cerebral infarction affecting left non-dominant side; Z86.718 Personal history of other venous thrombosis and embolism; G40.909 Epilepsy, unspecified, not intractable, without status epilepticus; G80.9 Cerebral palsy, unspecified; E78.5 Hyperlipidemia, unspecified; I11.0 Hypertensive heart disease with heart failure; M81.0 Age-related osteoporosis without current pathological fracture; Z87.891 Personal history of nicotine dependence; Z20.822 Contact with and (suspected) exposure to COVID-19; Z79.899 Other long term (current) drug therapy

== ENCOUNTER → 2021-04-25 | Outpatient (REF) | payer MEDICARE, MEDICAID ==
[~2021-04-25] MED LIST changes: +APAP325T4 PO; +B-121TAB3 PO; +DICL20GE TOP; +ERGO500029 PO; +FURO80TA2 PO; +GABA-1171 PO; +IPRA0.00 NEB; +LEVO500T4 PO; +MAGNSOL3 PO; +MIDO5TA PO; +MOXI1TAB PO; +PROP20TA72 PO; +SIMV40TA20 PO; +SYMB16INH INH; +[UNRECOGNIZED DRUG - CODE] TOP
[2021-04-25 10:36] LABS: HEMATOCRIT 44.3 % (42.0-52.0); HEMOGLOBIN 14.7 g/dl (13.5-17.5); MEAN CORPUSCULAR HEMOGLOBIN 33.5 pg (27.0-33.0); MEAN CORPUSCULAR HGB CONC 33.2 g/dl (32.0-36.5); MEAN CORPUSCULAR VOLUME 100.9 fl (80.0-96.0); PLATELET COUNT, AUTOMATED 386 10^3/uL (150-450); RED BLOOD COUNT 4.39 10^6/uL (4.30-6.10); WHITE BLOOD COUNT 9.2 10^3/uL (4.0-10.0)
[2021-04-25 11:36] LABS: BLOOD UREA NITROGEN 17 MG/DL (7-18); CALCIUM LEVEL 9.1 MG/DL (8.8-10.2); CARBON DIOXIDE LEVEL 16 MEQ/L (21-32); CHLORIDE LEVEL 103 MEQ/L (98-107); FOLATE 5.4 NG/ML; GLOMERULAR FILTRATION RATE > 60.0 (>42); GLUCOSE, FASTING 82 MG/DL (70-100); POTASSIUM SERUM 3.3 MEQ/L (3.5-5.1); SODIUM LEVEL 140 MEQ/L (136-145); VITAMIN B12 LEVEL > 2000 PG/ML
[2021-04-25 16:47] LABS: C REACTIVE PROTEIN QUANTITATIV 5.46 MG/DL (0.00-0.30)
== END ==
PROVIDERS: ATTEND Internal Medicine
DX: R41.82 Altered mental status, unspecified (principal)

== ENCOUNTER → 2021-04-26 | Outpatient (CLI) | payer MEDICARE, MEDICAID | PROVIDERS: ATTEND Internal Medicine | DX: J44.0 Chronic obstructive pulmonary disease with (acute) lower respiratory infection (principal) ==

== ENCOUNTER → 2021-04-27 | Outpatient (REF) | payer MEDICARE, MEDICAID ==
[2021-04-27 15:24] LABS: BASO # 0.1 10^3/uL (0.0-0.2); BASO % 1.2 % (0.0-1.0); EOS # 0.1 10^3/uL (0.0-0.5); HEMATOCRIT 38.1 % (42.0-52.0); HEMOGLOBIN 12.6 g/dl (13.5-17.5); LYMPH # 1.4 10^3/uL (1.5-5.0); LYMPH % 16.3 % (24.0-44.0); MEAN CORPUSCULAR HEMOGLOBIN 33.5 pg (27.0-33.0); MEAN CORPUSCULAR HGB CONC 33.1 g/dl (32.0-36.5); MEAN CORPUSCULAR VOLUME 101.3 fl (80.0-96.0); MONO # 0.7 10^3/uL (0.0-0.8); NEUTROPHILS % 73.1 % (36.0-66.0); PLATELET COUNT, AUTOMATED 313 10^3/uL (150-450); RED BLOOD COUNT 3.76 10^6/uL (4.30-6.10); WHITE BLOOD COUNT 8.3 10^3/uL (4.0-10.0)
[2021-04-27 16:00] LABS: ALBUMIN 2.6 GM/DL (3.2-5.2); ALT/SGPT 49 U/L (12-78); BILIRUBIN,TOTAL 0.6 MG/DL (0.2-1.0); BLOOD UREA NITROGEN 24 MG/DL (7-18); CALCIUM LEVEL 8.5 MG/DL (8.8-10.2); CARBON DIOXIDE LEVEL 19 MEQ/L (21-32); CHLORIDE LEVEL 109 MEQ/L (98-107); CREATININE FOR GFR 1.16 MG/DL (0.70-1.30); GLOMERULAR FILTRATION RATE > 60.0 (>42); GLUCOSE, FASTING 126 MG/DL (70-100); NT-PRO BNP 276 PG/ML (<450); POTASSIUM SERUM 4.1 MEQ/L (3.5-5.1); SODIUM LEVEL 144 MEQ/L (136-145); TOTAL PROTEIN 7.1 GM/DL (6.4-8.2)
== END ==
PROVIDERS: ATTEND Internal Medicine
DX: I11.0 Hypertensive heart disease with heart failure (principal); I50.9 Heart failure, unspecified

== ENCOUNTER → 2021-04-27 | Outpatient (REF) | payer MEDICARE, MEDICAID ==
[2021-04-27 12:49] LABS: BLOOD UREA NITROGEN 23 MG/DL (7-18); CALCIUM LEVEL 9.1 MG/DL (8.8-10.2); CARBON DIOXIDE LEVEL 17 MEQ/L (21-32); CHLORIDE LEVEL 107 MEQ/L (98-107); CREATININE FOR GFR 1.23 MG/DL (0.70-1.30); GLOMERULAR FILTRATION RATE > 60.0 (>42); GLUCOSE, FASTING 118 MG/DL (70-100); NT-PRO BNP 289 PG/ML (<450); POTASSIUM SERUM 3.2 MEQ/L (3.5-5.1); SODIUM LEVEL 144 MEQ/L (136-145)
== END ==
PROVIDERS: ATTEND Nurse Practitioner Primary Care
DX: E87.6 Hypokalemia (principal); I11.0 Hypertensive heart disease with heart failure; I50.9 Heart failure, unspecified

== ENCOUNTER → 2021-04-28 | Outpatient (REF) | payer MEDICARE, MEDICAID | PROVIDERS: ATTEND Internal Medicine | DX: E87.6 Hypokalemia (principal); Z53.9 Procedure and treatment not carried out, unspecified reason ==

== ENCOUNTER → 2021-04-29 | Outpatient (REF) | payer MEDICARE, MEDICAID | PROVIDERS: ATTEND Internal Medicine | DX: E87.6 Hypokalemia (principal); Z53.9 Procedure and treatment not carried out, unspecified reason ==